=== PATIENT | female | born 1935 ===

== ENCOUNTER 2023-11-18 13:41 | Inpatient (IN) | payer OTHER, SELFPAY ==
--- NOTE | 2023-11-18 10:20 | ED.MUSCINJ ---
HPI-Injury
General
Chief Complaint: Musculo-Skeletal Complaint
Source: patient
Exam Limitations: none
Time Seen by Provider: 11/18/23 09:48
Nursing documentation reviewed up to this point in time: agreed with
Travel History
Have you had any contact with someone who has COVID-19?: No
Do you have any symptoms of coronavirus? Fever > 100 degrees, chills, cough, shortness of breath, sore throat, loss of taste or smell, muscle aches, or headache?: No
History of Present Illness-Injury
Is this injury a work related problem?: No
Is pt an associate of [facility]?: No
Initial Injury comments:
88-year-old female was at the [facility] slipped on a wet floor injuring her right wrist and right hip occurred just prior to arrival she is right-hand dominant, she has had injury to the right wrist before seen by Kiya did not require operative
repair, has mild pain in her right hip she is able to ambulate, has a deformity to her right wrist, no head strike takes aspirin no other blood thinners
Review of Systems
Review of Systems
All Other Systems: Not applicable
Respiratory: Reports no symptoms
Cardiac: Reports no symptoms
ABD/GI: Reports no symptoms
Musculoskeletal: Reports joint pain and joint swelling; Denies neck pain
Neurological: Reports no symptoms
Endocrine: Reports no symptoms
Phy Exam
Physical Exam
Physical Exam:
Physical Exam
General: Nontoxic female looks uncomfortable
Neck: No tongue bite no posterior neck pain
Heart: s1/s2 regular rate and rhythm, no murmur. equal radial pulses.
Lungs: no acute respiratory distress.
Neuro: alert and oriented. no focal neurological deficits
Skin: no rash
Psychiatric: well kept. interactive and cooperative
Extremities: Minimal pain with range of motion internal extra rotation of the right hip, dorsally displaced deformity of the right distal radius strong radial pulse normal cap refill
Injury Course
Orders/Labs/Results
Orders:
Orders
11/18/23 09:58
CR Wrist - Right Min 3 Views Urgent
Comment:
Reason For Exam: pain injury
Hip, Right 2-3 Views [CR Hip - RT w/wo Pel 2-3 Vw*] Urgent
Comment:
Reason For Exam: pain injury
Include a pelvis x-ray?: Yes
11/18/23 10:11
IV Insert/Care/Rem.- Treatment PRN
11/18/23 10:54
Morphine Sulfate 4 mg IV NOW STA
11/18/23 11:26
Type+Screen Urgent
Electrocardiogram (*1) Urgent
Reason for Study: Other
Other Reason for Exam: trauma
Cardiac Monitoring- Treatment ONCE
EKG- Treatment ONCE
Sling Right-Treatment ONCE
Complete Blood Count/With Diff Urgent
Comprehensive Metabolic Panel Urgent
Procedures
Splint Check
Splint checked by provider?: Yes
Circulation/Movement/Sensation post splint application: brisk cap refill
Splinting/Sling Placement
Right:
Procedure completed by: carmencita
Pre-splint extermity exam: neurovascular intact
Type of splint: dorsal/volar
Splint material: fiberglass
Splint checked by provider?: Yes
Joint/Fracture Reduction
Right Wrist:
Indication for procedure:: Wrist fracture
Procedure completed by: Carmencita
Consent form signed: No
Anesthesia/sedation: Injection to joint space
Injury was: closed
Further treatement: needs further treatment
Post reduction exam: stable
Capillary Refill: normal
Additional information:
Verbal consent, timeout sterile technique 4 cc of 1% lidocaine and Marcaine injected into the hematoma gentle pressure placed
MDM/Problems Addressed
Differential Diagnosis Includes:
Wrist fracture contusion hip contusion hip fracture pelvic fracture pelvic contusion
MDM/Problems Addressed:
Wrist and hip injury
*Radiology
Radiology exam reviewed: preliminary read by ED provider
*Pulse Oximetry
Patient hypoxic: no
*Critical Care Note
Total Time (30-74mins, 75-104mins- exclusive of procedures): Not Applicable
ED Attending Note
-
Portions of this chart may have been created with voice recognition software.� Occasional wrong word or��sound alike� substitutions may have occurred due to the inherent limitations of voice recognition software.
Discharge Plan
Departure
Referrals:
UNKNOWN - PT DOES,NOT KNOW [Family Provider] -
Interventions
Interventions:
*Risk Screen - Suicide Last Done: 11/18/23 09:48
*General Assessment Last Done: 11/18/23 09:48
*Neglect/Abuse Screening Last Done: 11/18/23 09:48
ED- Fall Risk Assessment Last Done: 11/18/23 09:48
*ED COVID-19 Vaccine History Last Done: 11/18/23 09:48
ED-Musculoskeletal Assessment Last Done: 11/18/23 09:48
Discharge Date and Time
Print Language: KISWAHILI
[2023-11-18] MEDS: MORPHINE SULFATE 4 MG IV (12:06)
[2023-11-18 12:22] LABS: % Basophils 0.2 % (0-2); % Eosinophils 0.2 % (0-6); % Immature Granulocytes 0.9 % (0-0.5); % Lymphocytes 7.8 % (20.5-51.1); % Monocytes 5.9 % (1.7-9.3); Absolute Immature Granulocytes 0.1 10^3/uL (0-0.05); Absolute Lymphocytes 0.8 10^3/uL (1.2-3.4); Absolute Monocytes 0.6 10^3/uL (0.1-0.6); Absolute Neutrophils 8.2 10^3/uL (1.4-6.5); Hematocrit 38.4 % (37.0-47.0); Hemoglobin 13.3 g/dL (12.0-16.0); Mean Corp Hgb Conc. 34.6 g/dL (33.0-37.0); Mean Corpuscular Hgb 31.8 pg (27.0-31.0); Mean Corpuscular Volume 91.9 fL (81.0-99.0); Mean Platelet Volume 10.4 fL (7.4-10.4); Nucleated Red Blood Cells % 0 %; Platelet Count 144 10^3/uL (130-400); Red Blood Cell Count 4.18 10^6/uL (4.20-5.40); White Blood Cell Count 9.6 10^3/uL (4.8-10.8)
[2023-11-18 12:33] LABS: INR 1.08; PT 13.9 Sec (11.4-14.6)
[2023-11-18 12:36] VITALS: BP 146/71
[2023-11-18 12:50] LABS: ALT (SGPT) 25 U/L (0-35); AST (SGOT) 33 U/L (14-36); Albumin 4.1 g/dl (3.5-5.0); Alkaline Phosphatase 44 U/L (38-126); Blood Urea Nitrogen 19 mg/dl (7-17); Calcium 9.4 mg/dl (8.4-10.2); Carbon Dioxide 28 mmol/L (22-30); Chloride 97 mmol/L (98-107); Glucose 91 mg/dl (70-99); Potassium 3.8 mmol/L (3.5-5.1); Sodium 131 mmol/L (135-145); Total Bilirubin 0.7 mg/dl (0.2-1.3); Total Protein 6.8 g/dl (6.3-8.2); eGFR > 60.00
--- NOTE | 2023-11-18 13:05 | HPS.HSE ---
Family Physician
<DWAYNE Loyola - Last Filed: 11/18/23 13:21>
-
Family Physician: NOT KNOW UNKNOWN - PT DOES
Chief Complaint
<DWAYNE Loyola - Last Filed: 11/18/23 13:21>
-
Fall, right wrist pain, right hip pain
History of Present Illness
88-year-old female who was at the [facility] and slipped on a wet floor in the shower area landing on her right wrist and right hip. She came to ER with right wrist deformity and pain in her right hip. She did have prior injuries to the right wrist that
she stated was seen by Kiya but did not require operative repair. She denies striking her head, LOC, blood thinners, headache, blurred vision, dizziness, chest pain, palpitations, shortness breath, cough, abdominal pain, nausea, vomiting,
diarrhea, urinary symptoms. She is past medical history of CAD/CABG, CHF, HTN, HLD, [place], arthritis, fractures
Medical History
<DWAYNE Loyola - Last Filed: 11/18/23 13:21>
Past Medical History
Past Medical History: Reports Other
Additional Past Medical History:
CAD/CABG
CHF
HTN
HLD
[place]
arthritis
fractures
Past Surgical History: Reports Other
Additional Past Surgical History:
CABG x 1 vessel age 69
Lumpectomy
Appendectomy
Social History
Tobacco: Former Smoker (Quit age 23)
Alcohol: None
Drug: None
Personal: Single
Living: Alone
Employment: Retired
Family History
Family History: Other (Mother of pancreatic cancer Father CAD)
Allergies / Home Medications
Allergies reflects when Allergies were last updated in [facility].
Home Medications with original date entered in [facility] [employer]
<Kian Nieves MD - Last Filed: 11/18/23 13:46>
Allergies / Home Medications
Allergy/Medication List:
Allergies
Allergy/AdvReac Type Severity Reaction Status Date / Time
No Known Allergies Allergy Unverified 08/16/16 12:27
Home Medications
acetaminophen 650 mg tablet,extended release 650 mg PO DAILY 11/18/23
aspirin 81 mg tablet,delayed release 81 mg PO QPM 11/18/23
calcium carbonate (Calcium 600) 1,200 mg PO DAILY 11/18/23
hydrochlorothiazide 25 mg tablet 25 mg PO DAILY 11/18/23
simvastatin 40 mg tablet (Zocor) 40 mg PO QPM 11/18/23
therapeutic multivitamin 1 tab PO DAILY 11/18/23
valsartan 320 mg tablet 320 mg PO QPM 11/18/23
Review of Systems
<DWAYNE Loyola - Last Filed: 11/18/23 13:21>
-
History Source: Patient and Family (Friend at bedside)
A 12 point ROS was completed and negative except as noted: Yes
Constitutional: Denies Fever or Fatigue
EENT: Denies Sore Throat or Runny Nose
Respiratory: Denies Cough or Trouble Breathing
Cardiac: Denies Chest Pain, Diaphoresis, Palpitations or Syncope
Abdomen/GI: Denies Abdominal Pain, Nausea, Vomiting, Diarrhea, Constipated, Bloody Stools or Black Stools
: Denies Dysuria, Frequency, Flank Pain, Incontinence or Difficulty Voiding
Musculoskeletal: Reports Joint Pain (Right wrist, right hip) and Joint Swelling (Right wrist, right hip)
Skin: Denies Itching or Rash
Neurological: Denies Dizzy, Headache or Weakness
Endocrine: Reports No Symptoms
Hematologic/Lymphatic: Reports No Symptoms
Psych: Reports Calm
Physical Exam
<DWAYNE Loyola - Last Filed: 11/18/23 13:21>
Vital Signs
Vital Signs
Temp Pulse Resp BP Pulse Ox
97.7 F 65 16 146/71 98
11/18/23 09:48 11/18/23 12:36 11/18/23 09:48 11/18/23 12:36 11/18/23 12:36
Physical Exam
General: Conversant and Pain; No Fever or Chills
HEENT: NormoCephalic, Anicteric, Moist mucous membranes, Atraumatic, PERRLA, [place] Conjunctivae, No Ptosis and Neck Nontender
Respiratory: Clear; No Wheezes, Rales or Rhonchi
Cardiac: S1/S2 and Regular Rhythm; No Murmur, Gallop or Peripheral Edema
Breast: Deferred by me
GI: Soft, Non Tender, Non Distended, Normal Bowel Sounds and No Hepatosplenomegaly
Rectal: Deferred by Provider
Genito-urinary: Deferred by me
Musculoskeletal: No Clubbing, No Cyanosis and Other (Distal right wrist swelling with pain extending to distal fingers, slight numbness thumb and index finger secondary to pain block given in ER, right hip slight swelling at greater trochanter); No
Edema, Left Upper Extremity, Edema, Right Upper Extremity, Edema, Left Lower Extremity or Edema, Right Lower Extremity
Skin: Warm and Dry; No Rash
Neuro: AO x 3, Nonfocal/grossly intact, Cranial Nerves Intact and No Sensory Deficits; No Slurred Speech, Facial Droop or Tremors
Psych: Calm
Laboratory Results
<DWAYNE Loyola - Last Filed: 11/18/23 13:21>
-
11/18/23 12:14
11/18/23 12:14
Laboratory Results
PT 13.9 Sec (11.4-14.6) 11/18/23 12:14
INR 1.08 11/18/23 12:14
Total Bilirubin 0.7 mg/dl (0.2-1.3) 11/18/23 12:14
AST 33 U/L (14-36) 11/18/23 12:14
ALT 25 U/L (0-35) 11/18/23 12:14
Alkaline Phosphatase 44 U/L (38-126) 11/18/23 12:14
Data Reviewed
<DWAYNE Loyola - Last Filed: 11/18/23 13:21>
-
Diagnostic Radiology: Report Reviewed by me
Lab Data: Labs Reviewed by me
Impression/Plan
<DWAYNE Loyola - Last Filed: 11/18/23 13:21>
-
Impression/plan:
Admit to MedSurg
# Mechanical fall with Distal RIGHT RADIUS FX/ ULNAR styloid FX/ RIGHT FEM NECK FX
#History fracture right wrist April 2023�wore cast
-Consult Tiffanie Ronquillo aware
-type and screen sent from ER
-N.p.o. after midnight
-Ice, rest, elevate
-Pain control, bowel regimen
-Consult PT/OT/case management consult
Right wrist x-ray: Comminuted impacted fracture of the distal right
radius and accompanying fracture of the ulnar styloid
Right hip x-ray: Right femoral neck fracture
EKG: NSR 69 bpm, QTc 441 MS no previous EKGs
#HTN�benign
- Continue valsartan
#HLD
-Continue Zocor
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
Follows at [facility] [facility]
#CHF unclear type
-Hold HCTZ
# Arthritis, fractures
DVT prophylaxis
DNR per patient with friend at bedside
[2023-11-18] MEDS: TORADOL 15 MG IV (13:09)
--- NOTE | 2023-11-18 13:37 | W.PN.UPDATE ---
Update Note
Progress Note Update
I saw and examined the patient.
The PIPE FITTER SUPERVISOR MAINTENANCE's note was reviewed and I agree with the note.
Comment:
88-year-old female past medical history of CAD status post CABG, hypertension, hyperlipidemia who is presenting after mechanical fall. Currently states of severe right wrist pain. Not much right hip pain. Denies any loss of consciousness or
palpitation or chest pain prior to the fall. States she can usually do 45 minutes of water exercise. Denies any prior history of diabetes or renal problems. Denies any headache. States she is right-hand dominant.
General in mild acute distress due to pain
HEENT neck is supple trach is midline
Cardiac S1-S2 regular rate rhythm
Lungs clear to auscultation frontally
Abdomen positive bowel sounds soft nontender
Extremities no edema. Right upper extremity with severe wrist swelling and ice pack noted. Lower extremity varicose veins
Psych awake
Impression
Comminuted impacted fracture of the distal right radius and accompanying fracture of the ulna styloid,
Right femoral neck fracture
Mechanical fall
CAD status post CABG
Primary hypertension
HyperLipidemia
Mild hyponatremia
Plan
Bedrest and pain control till evaluation by surgery
Assistance with feeding
Pain control
N.p.o. past midnight with plans for tentative surgery pending orthopedic evaluation
EKG with normal sinus rhythm with no acute ST or T wave changes. Ventricular rate 69. QTc of 441. Patient states she can do Aerobic water exercises for 45 minutes without any chest pain or palpitation. Denies any prior history of diabetes or
renal disease chest pain or palpitation. Patient with low to intermediate cardiac risk per RCRI/Ceballos score for medically necessary surgery and may proceed as feasible. Risk outweighs benefits.
Prophylaxis SCDs till surgery evaluation
Continue home meds except for HCTZ
I spent a total of 78 minutes with the patient or on the floor. More than 50% of this time involved counseling and coordination of care.
[2023-11-18] MEDS: DILAUDID 0.5 MG IV ×2 (13:44→16:26)
[2023-11-18 16:07] VITALS: BP 153/73; BMI 22.6
[2023-11-18 16:22] VITALS: BMI 22.6
[2023-11-18] MEDS: LIPITOR 20 MG PO (17:04)
[2023-11-18] MEDS: DIOVAN 320 MG PO (17:04)
--- NOTE | 2023-11-18 18:41 | CON.ORTHO ---
Consultation
-
Date/Time Consultation Requested: 1130 AM 11/18/2023
Date/Time Consultation Performed: 615 PM 11/18/2023
Requesting Provider: David
Performing Provider: Romulo
Reason for Consultation: Right distal radius fracture, right femoral neck fracture
Consultation - Orthopedics
History
HPI: 88-year-old active female presented to the [facility] emergency department status post fall with complaints of right hip pain and right wrist pain. She was subsequently diagnosed with a displaced right distal radius fracture as well as an
impacted right femoral neck fracture. She was subsequently admitted to the hospitalist service and orthopedics was consulted for further evaluation and treatment. This evening patient reports that she was at the [facility] when she was trying to take a
shower when she fell. She noted immediate pain and deformity to the right wrist and immediate pain to the right groin. She was unable to ambulate and was subsequently brought to the hospital. She reports that pain is well-controlled at rest in
the right hip. Pain is also well-controlled with Dilaudid for right wrist pain. She was unable to tolerate a splint and is holding the wrist close to her chest with ice. She reports some diffuse altered sensation throughout the hand with some
associated tingling
Allergies / Home Medications
Past medical history: Coronary artery disease, congestive heart failure, hypertension, hyperlipidemia
Past surgical history: CABG, appendectomy
Social history: Former smoker, lives alone independently, no assistive devices
Family history: Not pertinent
Allergy/AdvReac Type Severity Reaction Status Date / Time
No Known Allergies Allergy Unverified 08/16/16 12:27
�Medication �Instructions �Recorded
acetaminophen 650 mg 650 mg PO DAILY pain 11/18/23
tablet,extended release
aspirin 81 mg tablet,delayed 81 mg PO QPM Blood Clot 11/18/23
release Prevention/Tx
calcium carbonate (Calcium 600) 1,200 mg PO DAILY Supplement 11/18/23
hydrochlorothiazide 25 mg tablet 25 mg PO DAILY Fluid 11/18/23
Retention/Swelling
simvastatin 40 mg tablet (Zocor) 40 mg PO QPM High Cholesterol 11/18/23
therapeutic multivitamin 1 tab PO DAILY Supplement 11/18/23
valsartan 320 mg tablet 320 mg PO QPM Blood Pressure 11/18/23
Vital Signs / Lab Results
Temp Pulse Resp BP Pulse Ox
98.3 F 81 18 153/73 96
11/18/23 16:07 11/18/23 16:07 11/18/23 16:07 11/18/23 16:07 11/18/23 16:07
11/18/23 12:14
11/18/23 12:14
10 point review systems reviewed and negative unless otherwise stated
General: Pleasant, no acute distress, at rest
Musculoskeletal right upper extremity
Skin intact, no erythema, mild ecchymotic staining right wrist
Obvious dorsal deformity right wrist with tenderness palpation over distal radius metaphyseal region
Sensation is gross intact to light touch in all distributions distally although patient does report some diffuse tingling this is not in a focal median nerve distribution
Brisk cap refill distally
No tenderness palpation over elbow
Musculoskeletal right lower extremity
Leg lengths are approximately equal
There is very minimal pain with logroll
There is minimal tenderness palpation of the right groin and lateral trochanteric flare
Distal motor and sensation baseline
No other areas of bony tenderness palpation or crepitation of long bones and joints on tertiary examination
Diagnostic studies
X-rays right wrist and right hip independently viewed by myself. This shows displaced apex volar dorsal angulation intra-articular right distal radius fracture with shortening. There is also evidence of valgus impacted right femoral neck fracture.
Assessment / Plan
88-year-old female status post fall with displaced right distal radius fracture and right impacted femoral neck fracture. I had a long detailed discussion the patient regarding diagnosis and treatment options. After discussion we mutually agreed
to proceed with operative intervention for right femoral neck fracture. We discussed risks benefits and alternatives to surgery. We discussed the usual expected perioperative and postoperative course. No guarantees were given. We did discuss the
possibility of conversion to arthroplasty procedure in the future should fixation fail. After discussion, verbal consent was obtained to proceed with closed reduction cannulated screw fixation right femoral neck fracture. Will plan to obtain
written informed consent prior to procedure tomorrow. With regards to right distal radius fracture, my recommendation would be to proceed with conservative treatment. Will plan for close reduction and splinting with sugar-tong splint tomorrow in
the OR under sedation. She voiced her agreement to this plan as well.
Nonweightbearing right upper extremity in splint the patient can tolerate this, nonweightbearing right lower extremity
PT OT deferred to postoperative setting
DVT prophylaxis: Hold in a.m. in preparation for OR
Pain control
Medical management per primary team
Will obtain CT scan to confirm no significant apex anterior posterior displacement of femoral neck fracture and for surgical planning purposes
Plan: 2 OR tomorrow for operative fixation right femoral neck fracture and closed reduction right distal radius fracture pending medical clearance and OR availability
[2023-11-18] MEDS: DILAUDID 1 MG IV (19:44)
[2023-11-18 23:59] VITALS: BP 127/64
[2023-11-19] VITALS (24 sets, daily range): BP systolic 80–146; BP diastolic 46–105; BMI 22.3; BMI 22.8
[2023-11-19] MEDS: DILAUDID 1 MG IV ×3 (01:42→13:41)
[2023-11-19 06:57] LABS: % Basophils 0.4 % (0-2); % Eosinophils 1.4 % (0-6); % Immature Granulocytes 0.5 % (0-0.5); % Lymphocytes 8.9 % (20.5-51.1); % Monocytes 9.5 % (1.7-9.3); % Neutrophils 79.3 % (42.2-75.2); Absolute Eosinophils 0.1 10^3/uL (0-0.7); Absolute Lymphocytes 0.7 10^3/uL (1.2-3.4); Absolute Monocytes 0.8 10^3/uL (0.1-0.6); Absolute Neutrophils 6.3 10^3/uL (1.4-6.5); Hematocrit 34.9 % (37.0-47.0); Hemoglobin 12.1 g/dL (12.0-16.0); Mean Corp Hgb Conc. 34.7 g/dL (33.0-37.0); Mean Corpuscular Hgb 31.4 pg (27.0-31.0); Mean Corpuscular Volume 90.6 fL (81.0-99.0); Mean Platelet Volume 10.3 fL (7.4-10.4); Nucleated Red Blood Cells % 0 %; Platelet Count 141 10^3/uL (130-400); Red Blood Cell Count 3.85 10^6/uL (4.20-5.40); Red Cell Dist. Width 13.2 % (11.5-14.5)
[2023-11-19 07:13] LABS: Blood Urea Nitrogen 18 mg/dl (7-17); Calcium 8.7 mg/dl (8.4-10.2); Carbon Dioxide 30 mmol/L (22-30); Chloride 95 mmol/L (98-107); Estimated Creatinine Clearance 69 ml/min; Glucose 98 mg/dl (70-99); Potassium 3.8 mmol/L (3.5-5.1); Sodium 127 mmol/L (135-145); eGFR > 60.00
[2023-11-19] MEDS: OSCAL CAL 500 1000 MG PO (08:42)
[2023-11-19] MEDS: THERAGRAN 1 TABLET PO (08:42)
[2023-11-19] MEDS: ZOFRAN 4 MG IV (08:49)
--- NOTE | 2023-11-19 11:23 | W.PN.HOSP.TC ---
Today's Communication/Plan
-
OR Hopefully today
hold hctz
trend bmp
Assessment / Plan
Assessment / Plan
General: Conversant and Pain; No Fever or Chills
HEENT: NormoCephalic, Anicteric, Moist mucous membranes, Atraumatic, [place] Conjunctivae, No Ptosis and Neck Nontender
Respiratory: Clear; No Wheezes, Rales or Rhonchi
Cardiac: S1/S2 and Regular Rhythm; No Murmur, Gallop or Peripheral Edema
GI: Soft, Non Tender, Non Distended, Normal Bowel Sounds and No Hepatosplenomegaly
Musculoskeletal: No Clubbing, No Cyanosis and Other (Distal right wrist swelling with pain extending to distal fingers, slight numbness thumb and index finger secondary to pain block given in ER, right hip slight swelling at greater trochanter); No
Edema, Left Upper Extremity, Edema, Right Upper Extremity, Edema, Left Lower Extremity or Edema, Right Lower Extremity
Skin: Warm and Dry; No Rash
Neuro: AO x 3, Nonfocal/grossly intact, Cranial Nerves Intact and No Sensory Deficits; No Slurred Speech, Facial Droop or Tremors
Psych: Calm
# Mechanical fall with Distal RIGHT RADIUS FX/ ULNAR styloid FX/ RIGHT FEM NECK FX
#History fracture right wrist April 2023�wore cast
-type and screen sent from ER
-N.p.o. ordered.
-Ice, rest, elevate
-Pain control, bowel regimen
-Consult PT/OT/case management consult
-await OR.
-seen by Kiya.
#HTN�benign
- Continue valsartan
#Mild hyponatremia likely 2/2 HCTZ and vs. suspected SIADH in setting of severe pain
-Hold HCTZ. Check urine studie.s
#HLD
-Continue Zocor
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
Follows at [place] cardiology
#CHF unclear type
-Hold HCTZ
# Arthritis, fractures
DVT prophylaxis-scds and post op per orthopedic
DNR per patient
Anticipated Discharge: > 48 hours
Subjective/Interval History
-
Date of Service: November 19, 2023
states of R wrist pain
Objective Data
-
Labs:
Laboratory Results
11/19/23
06:14
WBC 8.0
Hgb 12.1
Hct 34.9 L
Plt Count 141
Sodium 127 L
Potassium 3.8
Chloride 95 L
Carbon Dioxide 30
BUN 18 H
Creatinine 0.6
Glucose 98
Calcium 8.7
Vital Signs:
Vital Signs
Temp Pulse Resp BP Pulse Ox
98.6 F 74 18 128/58 94
11/19/23 08:25 11/19/23 08:25 11/19/23 08:25 11/19/23 08:25 11/19/23 10:39
I&O
11/18/23 11/19/23 11/20/23
06:59 06:59 06:59
Output Total 450 / 450
Balance -450 / -450
Data Reviewed
-
Total Time Spent with Patient (in minutes): 55
[2023-11-19] MEDS: DILAUDID 0.5 MG IV ×2 (11:27→21:40)
--- NOTE | 2023-11-19 15:09 | CM ---
Cm met with pt and niece/Mirela bedside
Pt slept through assessment
Pt resides alone in a 2SH with 2STE- stair glide to 2nd floor
Pt is independent with her ADLs without any ADs, drives+
Does not own any DMEs
PCP- unknown to niece
Plan for hopeful OR today with ortho
Anticipate ST rehab needs on dc
PAC list provided and role of [employer] in prior auth approval discussed
Pt will benefit from post-op PT/OT orders once medically appropriate
Discharge Disposition- ST rehab
--- NOTE | 2023-11-19 19:14 | W.PN.UPDATE ---
Update Note
Progress Note Update
Patient was seen evaluated in the preoperative holding area. We were planning for operative fixation of right femoral neck fracture as well as closed reduction right distal radius fracture. She was taken to the OR at which point she was found to
be in A-fib. She does not have a documented history of A-fib. Anesthesia canceled the case and patient was taken to PACU. I did contact the primary team and they are planning on evaluating patient in PACU as she likely is not appropriate to
return to med surg floor in her current condition. Patient is currently in A-fib heart rate in the 160s on 2 L of nasal cannula oxygen satting in 90s. She was found to have a temperature of one 101.3. Will plan to see patient in the morning and
will tentatively plan for return to the OR tomorrow pending medical clearance/stability. Please keep NPO at midnight.
[2023-11-19] MEDS: LOPRESSOR 5 MG IV (19:25)
[2023-11-19] MEDS: OFIRMEV 100 IV (19:31)
[2023-11-19] MEDS: NSS 500 IV (19:50)
[2023-11-19 19:51] LABS: % Immature Granulocytes 0.7 % (0-0.5); % Lymphocytes 5.9 % (20.5-51.1); % Monocytes 9.3 % (1.7-9.3); % Neutrophils 84.1 % (42.2-75.2); Absolute Lymphocytes 0.3 10^3/uL (1.2-3.4); Absolute Monocytes 0.4 10^3/uL (0.1-0.6); Absolute Neutrophils 3.7 10^3/uL (1.4-6.5); Mean Corpuscular Volume 91.3 fL (81.0-99.0); Mean Platelet Volume 10.1 fL (7.4-10.4); Nucleated Red Blood Cells % 0 %; Platelet Count 52 10^3/uL (130-400); Red Cell Dist. Width 13.5 % (11.5-14.5); White Blood Cell Count 4.4 10^3/uL (4.8-10.8)
[2023-11-19 19:55] LABS: Hematocrit 13.7 % (37.0-47.0); Hemoglobin 4.8 g/dL (12.0-16.0)
[2023-11-19 20:11] LABS: % Basophils 0.2 % (0-2); % Eosinophils 0.1 % (0-6); % Immature Granulocytes 0.5 % (0-0.5); % Lymphocytes 5.3 % (20.5-51.1); % Monocytes 8.5 % (1.7-9.3); % Neutrophils 85.4 % (42.2-75.2); Absolute Immature Granulocytes 0.1 10^3/uL (0-0.05); Absolute Lymphocytes 0.6 10^3/uL (1.2-3.4); Absolute Monocytes 0.9 10^3/uL (0.1-0.6); Absolute Neutrophils 9.3 10^3/uL (1.4-6.5); Hematocrit 35.8 % (37.0-47.0); Hemoglobin 12.3 g/dL (12.0-16.0); Mean Corp Hgb Conc. 34.4 g/dL (33.0-37.0); Mean Corpuscular Hgb 32.1 pg (27.0-31.0); Mean Corpuscular Volume 93.5 fL (81.0-99.0); Mean Platelet Volume 10.3 fL (7.4-10.4); Nucleated Red Blood Cells % 0 %; Platelet Count 141 10^3/uL (130-400); Red Blood Cell Count 3.83 10^6/uL (4.20-5.40); Red Cell Dist. Width 13.3 % (11.5-14.5); White Blood Cell Count 10.8 10^3/uL (4.8-10.8)
[2023-11-19 20:12] LABS: Glucose - Point of Care 105 mg/dl (70-99)
[2023-11-19] MEDS: NSS 1000 IV (20:23)
[2023-11-19 20:42] LABS: APTT 34.9 Sec (23.4-35.0)
[2023-11-19 20:45] LABS: ALT (SGPT) 80 U/L (0-35); AST (SGOT) 82 U/L (14-36); Albumin 3.2 g/dl (3.5-5.0); Alkaline Phosphatase 57 U/L (38-126); Blood Urea Nitrogen 22 mg/dl (7-17); Calcium 9.5 mg/dl (8.4-10.2); Carbon Dioxide 27 mmol/L (22-30); Chloride 94 mmol/L (98-107); Estimated Creatinine Clearance 32 ml/min; Glucose 100 mg/dl (70-99); Phosphorus 4.7 mg/dl (2.5-4.5); Potassium 4.6 mmol/L (3.5-5.1); Sodium 127 mmol/L (135-145); Total Bilirubin 0.8 mg/dl (0.2-1.3); Total Protein 5.6 g/dl (6.3-8.2)
--- NOTE | 2023-11-19 21:06 | W.PN.UPDATE ---
Update Note
Progress Note Update
Patient was seen and evaluated in PACU as patient was found to be in Rapid Afib prior to surgery on Right Hip. EKG shows Afib RVR BP 109/76 HR 160's, Temp 101.3, 2l O2 94%, RR 20. Tylenol IV x1 given, metoprolol 5mg IV x1 given. CBC, CMP, mag phos
ordered. BP noted to be in 70's-80's systolic, 500 ml bolus given, Labs noted. Patient resting in bed, no bleeding, bruises noted. Patient denies any chest pain or shortness of breath or palpitation. Denies any hx of stroke or A-fib. Principal Cloud Architect
consulted, and will transfer patient to ICU for closer observation.
--- NOTE | 2023-11-19 21:30 | PTCARENOTE ---
rec'd patient from PACU. oriented x3. afib on monitor, HR 110s-140s, ICU ANNUAL GIVING DIRECTOR aware. afebrile. + pedal pulses. on 2L NC, lungs CTA. NPO, ice chips provided. purewick placed. UA sent. pt repositioned off R hip. c/o pain with movement of R wrist and R
hip. IVF infusing. PRN dilaudid given for pain. IMU level of care. call de santiago within reach. care ongoing.
[2023-11-19] MEDS: DIOVAN PO (21:36)
[2023-11-19] MEDS: LIPITOR PO (21:36)
[2023-11-19 22:04] LABS: Osmolality Urine 615 mOsm/kg (300-900)
[2023-11-19 22:13] LABS: Urine Sodium 49 mmol/L (30-90)
[2023-11-19] MEDS: CARDIZEM 10 MG IV (22:26)
[2023-11-19] MEDS: CARDIZEM 125 IV (22:28)
--- NOTE | 2023-11-19 23:19 | PTCARENOTE ---
2230- HR 130-150s, ICU PERSONAL COACH aware, cardizem bolus and gtt initiated per protocol. care ongoing.
[2023-11-20] VITALS (49 sets, daily range): BP systolic 92–135; BP diastolic 46–91; BMI 22.8
--- NOTE | 2023-11-20 04:16 | PTCARENOTE ---
pt reassessed, no changes noted in assessment. denies pain at this time. AM labs sent. shayan gtt continues, HR 60-80. call de santiago within reach, care ongoing.
[2023-11-20 04:18] LABS: % Basophils 0.4 % (0-2); % Eosinophils 0.6 % (0-6); % Immature Granulocytes 0.4 % (0-0.5); % Lymphocytes 12.6 % (20.5-51.1); % Monocytes 13.2 % (1.7-9.3); % Neutrophils 72.8 % (42.2-75.2); Absolute Eosinophils 0.1 10^3/uL (0-0.7); Absolute Lymphocytes 1.1 10^3/uL (1.2-3.4); Absolute Monocytes 1.2 10^3/uL (0.1-0.6); Absolute Neutrophils 6.5 10^3/uL (1.4-6.5); Hemoglobin 12.4 g/dL (12.0-16.0); Mean Corp Hgb Conc. 33.5 g/dL (33.0-37.0); Mean Corpuscular Hgb 31.7 pg (27.0-31.0); Mean Corpuscular Volume 94.6 fL (81.0-99.0); Mean Platelet Volume 10.5 fL (7.4-10.4); Nucleated Red Blood Cells % 0 %; Platelet Count 137 10^3/uL (130-400); Red Blood Cell Count 3.91 10^6/uL (4.20-5.40); Red Cell Dist. Width 13.5 % (11.5-14.5); White Blood Cell Count 8.9 10^3/uL (4.8-10.8)
[2023-11-20 04:55] LABS: Blood Urea Nitrogen 25 mg/dl (7-17); Calcium 9.5 mg/dl (8.4-10.2); Carbon Dioxide 28 mmol/L (22-30); Chloride 99 mmol/L (98-107); Estimated Creatinine Clearance 38 ml/min; Glucose 86 mg/dl (70-99); Potassium 4.3 mmol/L (3.5-5.1); Sodium 131 mmol/L (135-145); eGFR 48.63
[2023-11-20] MEDS: NSS 1000 IV ×2 (05:16→15:25)
[2023-11-20] MEDS: DILAUDID 0.5 MG IV (05:19)
--- NOTE | 2023-11-20 07:51 | W.PN.ORTHO ---
Today's Communication / Plan
-
88-year-old female status post fall rates valgus impacted femoral neck fracture displaced right distal radius fracture with recent onset A-fib prior to OR yesterday evening causing her case to be canceled
Nonweightbearing right upper extremity. Patient is refusing to wear splint as she reported this was uncomfortable. Certainly advised her to maintain this in a comfortable position avoid use of right hand and wrist
Nonweightbearing right lower extremity
PT OT deferred until postoperative setting
DVT prophylaxis: Hold in preparation for OR
Medical management per primary team
Plan: 2 OR today if medically appropriate per medicine and cardiology. Awaiting cardiology input per documentation. Certainly if patient is cleared today, can plan for or later today. Please keep n.p.o. until cardiology evaluation. Please reach
out any questions or concerns.
Subjective
.
.:
Patient resting comfortably this morning in bed. Denies any shortness of breath. She continues to complain of right wrist and right groin pain. She was transferred to the ICU from PACU for new onset A-fib
Vital Signs and Labs
.
Vital Signs and Labs:
Lab Results
11/20/23 04:05
11/20/23 04:05
Temp Pulse Resp BP Pulse Ox
97.9 F 75 14 105/53 95
11/20/23 03:43 11/20/23 07:00 11/20/23 07:00 11/20/23 07:00 11/20/23 07:00
PT 15.0 Sec (11.4-14.6) H 11/19/23 20:24
INR 1.20 11/19/23 20:24
Physical Exam
-
Musculoskeletal right upper and lower extremities
Skin intact, no erythema
There is obvious deformity to right wrist with diffuse tenderness palpation numbers Refill
Sensation grossly intact without evidence of acute carpal tunnel syndrome
Pain with logroll right leg
Leg lengths approximately equal without significant shortening
Positive EHL, FHL, ankle dorsiflexion, plantarflexion
Wrist cap refill
[2023-11-20] MEDS: THERAGRAN PO (08:00)
[2023-11-20] MEDS: OSCAL CAL 500 PO (08:00)
--- NOTE | 2023-11-20 08:07 | PTCARENOTE ---
Received pt awake and alert.Speech is appropriate.+MONTES.Severe pain with limited movement of right leg and right wrist/hand.Medicated with Dilaudid as requested.A Fib noted.Cardizem gtt and IVF infusing.O2 2l NC.POX 95%Decreased breath sounds
throughout noted.NPO.No Bm.Voiding yellow urine via PureWick.Plan of care discussed.
[2023-11-20] MEDS: DILAUDID 1 MG IV ×3 (08:21→20:53)
--- NOTE | 2023-11-20 08:46 | CON.CAR ---
Addendum entered and electronically signed by Timi Griffin MD 11/20/23 09:15:
I saw and examined the patient.
The ELECTRICIAN MARINE's note was reviewed and I agree with the note.
Comment: 88-year-old female followed at [facility] for CAD status post ankle vessel CABG approximately 30 years ago, hypertension, and hyperlipidemia who presented to the ED after a fall. She has been found to have multiple fractures.
She has been seen by orthopedics and is planned for OR later today. I discussed with her the risk of surgery. She exercises at least 4 times a week with no cardiovascular symptoms. She currently denies any ischemic, heart failure, or arrhythmia
symptoms. I did discuss atrial fibrillation with her as well. She will need long-term anticoagulation. Additionally, according to the NSQIP risk calculator she is at approximately 1% risk of cardiac complication and approximately 6% risk of any
complication. I discussed with her because of her age and medical condition she is likely an intermediate/moderate risk candidate but she needs no further testing or medication prior to surgery.
-Intermediate/moderate risk patient for orthopedic surgery no further testing or medication is needed
-AF RVR continue dill drip will transition to p.o. after surgery
-Eliquis when okay from surgical perspective
-Hold HCTZ given electrolyte abnormality
-We will continue to follow
Original Note:
Consultation
Consultation Request
Date/Time Consultation Requested: 11/19/2023 21:00
Date/Time Consultation Performed: 11/20/2023 08:10
Requesting Provider: DWAYNE Sims
Performing Provider: DWAYNE Espinoza for Dr. Griffin
Reason for Consultation: Atrial fibrillation with RVR, Cardiac risk assessment
Medical History
-
Chief Complaint: Fall
History of Present Illness:
Tabatha Covarrubias is an 88-year-old female (formerly known to Dr. Gorge holden, now following at [facility]), with CAD s/p single-vessel CABG, hypertension, and dyslipidemia who presented to the emergency department after a fall. She was at
the [facility]. She goes to the gym 4 days a week and does water aerobics and feels well while doing this. While going into the shower she sustained a mechanical fall. She denies head injury. She denies syncope. She denies loss of consciousness. She
presented to the emergency room and was found to have a radial fracture of the right wrist in addition to a right femoral neck fracture. The plan was for her to go to the OR yesterday. When she arrived in the OR holding area she was found to be
in atrial fibrillation with rapid ventricular response. She was given intravenous Lopressor and started on a diltiazem drip. She was found to have a temperature of 101.2. She had hypotension and was sent to ICU. She is afebrile and normotensive
this morning. Heart rate in the 80s and atrial fibrillation on diltiazem at 5 mg/hour. Cardiology was asked to consult for preop risk assessment. She is chest pain-free. She is lying completely flat in bed and denies shortness of breath.
Past Medical History
Past Medical History: CAD, HTN and Hypercholesterolemia
Social History
Tobacco: Former Smoker
Alcohol: None
Drug: None
Living: Alone
Employment: Retired
Family History
Family History: Reviewed & Not Pertinent
Allergies / Home Medications
Allergy/AdvReac Type Severity Reaction Status Date / Time
No Known Allergies Allergy Unverified 08/16/16 12:27
�Medication �Instructions �Recorded �Confirmed �Type
acetaminophen 650 mg 650 mg PO DAILY pain 11/18/23 11/18/23 History
tablet,extended release
aspirin 81 mg tablet,delayed 81 mg PO QPM Blood Clot 11/18/23 11/18/23 History
release Prevention/Tx
calcium carbonate (Calcium 600) 1,200 mg PO DAILY Supplement 11/18/23 11/18/23 History
hydrochlorothiazide 25 mg tablet 25 mg PO DAILY Fluid 11/18/23 11/18/23 History
Retention/Swelling
simvastatin 40 mg tablet (Zocor) 40 mg PO QPM High Cholesterol 11/18/23 11/18/23 History
therapeutic multivitamin 1 tab PO DAILY Supplement 11/18/23 11/18/23 History
valsartan 320 mg tablet 320 mg PO QPM Blood Pressure 11/18/23 11/18/23 History
Review of Systems
-
History Source: Patient
All other systems: Negative unless noted
EENT: No Symptoms
Respiratory: No Symptoms
Cardiac: No Symptoms
Musculoskeletal: Joint Pain (right wrist; right hip)
Physical Exam
Vital Signs
Temp Pulse Resp BP Pulse Ox
98.1 F 75 14 105/53 95
11/20/23 07:57 11/20/23 07:00 11/20/23 07:00 11/20/23 07:00 11/20/23 07:00
Lab Results
11/20/23 04:05
11/20/23 04:05
Physical Exam
General: Well Developed, Well Nourished, No Apparent Distress and Comfortable
HEENT: Normocephalic, Anicteric and Moist Mucous Membranes
Respiratory: Clear and Non Labored Respirations
Cardiac: S1/S2 and Irregular Rhythm
Breast: Deferred by me
GI: Soft, Non Tender, Non Distended and Normal Bowel Sounds
Rectal: Deferred by Provider
Genito-urinary: No Costovertebral Tender
Musculoskeletal: No Clubbing and No Cyanosis
Skin: Warm, Dry and Other (Swelling and ecchymosis to right hand)
Neuro: AO x 3
Hematologic/Lymphatic: No Lymphadenopathy
Psych: Calm
Impression / Plan
-
Preop risk assessment
-Able to complete 4 METS without anginal symptoms
-Reports stress testing within the last year that was 'normal'
Atrial fibrillation with rapid ventricular response
-Rate controlled on diltiazem 5mg/hour
-Oral Anticoagulation: None COMMODITY MERCHANT, start apixaban 5 mg twice daily, timing of start per orthopedic surgery
-[id number]: score at least 5 (HTN, age 75 or more, Vascular disease, female gender)
Mechanical fall with right femoral neck fracture and right radial fracture
-OR today
Fever, resolved, per primary
CAD
-prior single-vessel CABG, cath with 70% ostial LAD, presumed to CASTELLANOS�LAD
-Stable without chest pain
-On simvastatin, goal LDL <70
Hypertension, anticipate decreasing valsartan to allow for rate controlling agent, adjustment to be made postoperatively
Hyponatremia, hold HCTZ
Data Reviewed
-
EKG: Report Reviewed by me (Atrial fibrillation with rapid ventricular response. Lateral ST abnormality, rate 159)
Radiology: Report Reviewed by me (Wrist XR: There is a comminuted impacted fracture of the distal right radius extending to the radiocarpal joint with dorsal angulation of the major distal fracture fragment. An accompanying lateral and dorsally
displaced fracture of the ulna styloid is also noted.) and Other (Hip XR (right): Right femoral neck fracture, possibly mildly impacted.)
Labs: Labs Reviewed by me
Old Records: Reviewed
--- NOTE | 2023-11-20 10:32 | W.PN.HOSP.TC ---
Today's Communication/Plan
-
Continue with Cardizem
Plan for tentative OR today
IV fluids
Trend creatinine
Hold valsartan
Assessment / Plan
Assessment / Plan
General: Conversant and Pain; No Fever or Chills
HEENT: NormoCephalic, Anicteric, Moist mucous membranes, Atraumatic, [place] Conjunctivae, No Ptosis and Neck Nontender
Respiratory: Clear; No Wheezes, Rales or Rhonchi
Cardiac: S1/S2, irregularly irregular
GI: Soft, Non Tender, Non Distended, Normal Bowel Sounds and No Hepatosplenomegaly
Musculoskeletal: No Clubbing, No Cyanosis and Other (Distal right wrist swelling with pain extending to distal fingers, slight numbness thumb and index finger secondary to pain block given in ER, right hip slight swelling at greater trochanter); No
Edema, Left Upper Extremity, Edema, Right Upper Extremity, Edema, Left Lower Extremity or Edema, Right Lower Extremity
Skin: Warm and Dry; No Rash
Neuro: AO x 3, Nonfocal/grossly intact, Cranial Nerves Intact and No Sensory Deficits; No Slurred Speech, Facial Droop or Tremors
Psych: Calm
# Mechanical fall with Distal RIGHT RADIUS FX/ ULNAR styloid FX/ RIGHT FEM NECK FX
#History fracture right wrist April 2023
-type and screen sent from ER
-N.p.o. ordered.
-Ice, rest, elevate
-Pain control, bowel regimen
-Consult PT/OT/case management consult
-await OR. Appreciate cards assistance for preop risk assessment
-seen by Kiya.
# New onset of atrial fibrillation with rapid ventricular response
-Started on Cardizem drip
-Need to be started on anticoagulation. Once cleared by surgery
-Cardiology evaluation
#Fever
-resolved. if repeat episode check blood culture, ua and cxr
-monitor fever curve. wbc wnl.
#YOAV likely secondary to prerenal versus ATN with episodes of hypotension in setting of A-fib versus use of diuretics HCTZ
-Continue with IV fluids. Creatinine slowly starting to improve. Renally dose medication.
#HTN�benign
-Hold valsartan in setting of YOAV and blood pressure being well-controlled on Cardizem
-Can probably discontinue HCTZ on discharge
#Mild hyponatremia likely 2/2 HCTZ and vs. suspected SIADH in setting of severe pain
-Hold HCTZ. Sodium improving
#HLD
-Continue Zocor
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
Follows at [facility]
# Arthritis, fractures
DVT prophylaxis-scds and post op per orthopedic
DNR per patient
Anticipated Discharge: > 48 hours
Subjective/Interval History
-
Date of Service: November 20, 2023
Patient with new onset of atrial fibrillation and all lab was canceled yesterday
This morning patient on Cardizem drip and heart rate well-controlled
Objective Data
-
Labs:
Laboratory Results
11/20/23
04:05
WBC 8.9
Hgb 12.4
Hct 37.0
Plt Count 137
Sodium 131 L
Potassium 4.3
Chloride 99
Carbon Dioxide 28
BUN 25 H
Creatinine 1.1 H
Glucose 86
Calcium 9.5
Vital Signs:
Vital Signs
Temp Pulse Resp BP Pulse Ox
98.1 F 75 14 105/53 95
11/20/23 07:57 11/20/23 07:00 11/20/23 07:00 11/20/23 07:00 11/20/23 07:00
I&O
11/19/23 11/20/23 11/21/23
06:59 06:59 06:59
Intake Total 315 / 315
Output Total 1250 / 1250
Balance -935 / -935
Data Reviewed
-
Total Time Spent with Patient (in minutes): 56
--- NOTE | 2023-11-20 13:10 | PTCARENOTE ---
Pt assessed.No change in assessment noted.
--- NOTE | 2023-11-20 16:34 | PTCARENOTE ---
1600-Pt assessed.no change in assessment noted.Report given to WARDROBE CONSULTANT.Pt transported to OR via bed.
--- NOTE | 2023-11-20 16:43 | OR.RPT ---
Operative Report
Operative Report
Anesthesia Type:
General
Operative Indications:
Right valgus impacted femoral neck fracture, displaced right distal radius fracture
Operative Findings :
Same
Complications:
None
Implants:
6.5 mm Korin cannulated screws x 3
Procedure and Technique:
Close reduction cannulated screw fixation right valgus impacted femoral neck fracture, closed reduction and splinting right distal radius fracture
INDICATIONS FOR PROCEDURE:
88-year-old active healthy independent female presented to the emergency department after sustaining a fall while at the [facility]. She was subsequently diagnosed with a valgus impacted right femoral neck fracture as well as displaced left distal radius
fracture. She was admitted to the medical service and orthopedics was consulted. I discussed treatment options with the patient. We discussed surgical nonsurgical options. We discussed both arthroplasty and fixation options for right hip. After
discussion we mutually elected to proceed with cannulated screw fixation right valgus impacted femoral neck fracture as well as closed reduction and splinting of the right distal radius fracture. We discussed risks benefits and alternatives of
surgery. Discussed usual expected perioperative postoperative course. After discussion written informed consent was obtained. Patient had initially been taken to the OR on 11/18 but case was canceled that she developed new onset A-fib. She seen
by cardiology and subsequently cleared for the following day.
OPERATIVE PROCEDURE:
Patient is seen identified in preoperative holding area. Operative extremity was marked. All questions were answered. She was taken to the operating room where anesthesia was administered by the anesthesia providers. She was placed supine on
fracture table. Operative extremity was placed in well-padded fracture boot and contralateral extremity was well-padded and secured to contralateral fracture post. Operative extremity was then prepped and draped in normal sterile fashion. Timeout
was performed. Antibiotics were addressed. Small 5 cm incision was made over the lateral hip. Sharp dissection was carried through skin subcutaneous tissues deep fascial layer. Guidewires were then introduced under fluoroscopic guidance in an
inverted triangle position. Appropriate position was confirmed on fluoroscopy and appropriately sized cannulated screws 6.5 mm were then inserted. Final orthogonal fluoroscopic images confirmed appropriate position of screws. Satisfied with the
extent of surgery wounds were closed in layered fashion after copious irrigation normal saline solution. Skin was closed with jose subcutaneous layer was closed with 2-0 Vicryl suture. The drapes were removed and attention was then turned to
right distal radius fracture. Orthogonal fluoroscopic images were taken that revealed a dorsally displaced comminuted distal radius fracture with significant intra-articular component. Close reduction maneuvers were performed under anesthesia and
the reduction was quite tenuous and unable to be held adequately reduced through close reduction means. The decision was made to temporize with a volar slab splint. I will plan to discuss with the patient potentially open reduction internal
fixation given her active baseline lifestyle and independence particularly in the polytrauma setting. Anesthesia was reversed and she was taken to PACU in stable condition. Postoperative plan to include weightbearing to the patient's tolerance
right lower extremity. Nonweightbearing right upper extremity in splint. Patient may bear weight through a platform walker. Plan to see patient back in 2 weeks postop for repeat evaluation repeat radiographs planed removal of jose. Will
recommend DVT prophylaxis renally dosed Lovenox x 28 days.
Disposition:
PACU stable condition
[2023-11-20] MEDS: SUBLIMAZE 25 MCG IV ×2 (18:37→19:12)
[2023-11-20] MEDS: CARDIZEM 125 IV (19:08)
--- NOTE | 2023-11-20 19:50 | PTCARENOTE ---
Patient arrived from PACU accompanied by two EXECUTIVE COMMUNITY PLANNING's. Nursing assessment as documented. Patient s/p closed reduction cannulated screw fixation right hip and closed reduction and splinting right wrist. Aquacell to right thigh CDI, right wrist with
hard splint and SHEILA wrapped. Neurovasc checks as documented, see worklist. Patient on cardizem gtt, NSR on monitor rates in 70's, TRUST OFFICER notified - gtt on hold at [phone]. VSS, call de santiago within reach, care ongoing.
[2023-11-20] MEDS: NSS IV (20:50)
[2023-11-20] MEDS: COLACE 100 MG PO (20:51)
[2023-11-20] MEDS: LIPITOR 20 MG PO (20:51)
[2023-11-20] MEDS: ANCEF 5 IV (23:41)
[2023-11-21] VITALS (26 sets, daily range): BP systolic 105–160; BP diastolic 55–83; PULSE 80–83; O2SAT 98–99; BMI 20.9
[2023-11-21] MEDS: NSS 1000 IV (03:54)
[2023-11-21 05:11] LABS: % Basophils 0.1 % (0-2); % Immature Granulocytes 0.8 % (0-0.5); % Lymphocytes 4.8 % (20.5-51.1); % Monocytes 4.5 % (1.7-9.3); % Neutrophils 89.8 % (42.2-75.2); Absolute Immature Granulocytes 0.1 10^3/uL (0-0.05); Absolute Lymphocytes 0.4 10^3/uL (1.2-3.4); Absolute Monocytes 0.4 10^3/uL (0.1-0.6); Absolute Neutrophils 8.3 10^3/uL (1.4-6.5); Hemoglobin 14.1 g/dL (12.0-16.0); Mean Corp Hgb Conc. 34.4 g/dL (33.0-37.0); Mean Corpuscular Hgb 32.3 pg (27.0-31.0); Mean Platelet Volume 10.2 fL (7.4-10.4); Nucleated Red Blood Cells % 0 %; Platelet Count 135 10^3/uL (130-400); Red Blood Cell Count 4.36 10^6/uL (4.20-5.40); Red Cell Dist. Width 12.9 % (11.5-14.5); White Blood Cell Count 9.2 10^3/uL (4.8-10.8)
[2023-11-21 05:41] LABS: Blood Urea Nitrogen 27 mg/dl (7-17); Calcium 9.4 mg/dl (8.4-10.2); Carbon Dioxide 26 mmol/L (22-30); Chloride 103 mmol/L (98-107); Estimated Creatinine Clearance 59 ml/min; Glucose 126 mg/dl (70-99); Potassium 4.6 mmol/L (3.5-5.1); Sodium 136 mmol/L (135-145); eGFR > 60.00
--- NOTE | 2023-11-21 07:14 | W.PN.ORTHO ---
Today's Communication / Plan
-
88-year-old active female postop day 1 status post cannulated screw fixation right femoral neck fracture and splinting right distal radius fracture
Nonweightbearing right upper extremity in splints. Okay to bear weight through forearm for platform walker mobilization
Weightbearing as tolerated right lower extremity
DVT prophylaxis: Recommend Lovenox renally dosed 28 days postop, please hold in a.m. in preparation for or
Medical management per primary team
Pain control
PT OT
N.p.o. midnight
Plan: 2 OR tomorrow for operative fixation right distal radius fracture
Subjective
.
.:
Patient resting comfortably in bed this morning. No acute overnight events.
Vital Signs and Labs
.
Vital Signs and Labs:
Lab Results
11/21/23 05:03
11/21/23 05:03
Temp Pulse Resp BP Pulse Ox
98.4 F 84 10 134/66 100
11/21/23 03:33 11/21/23 06:00 11/21/23 06:00 11/21/23 06:00 11/21/23 05:45
PT 15.0 Sec (11.4-14.6) H 11/19/23 20:24
INR 1.20 11/19/23 20:24
Physical Exam
-
Musculoskeletal right upper extremity splint in place
Brisk cap refill distally
Motor sensation grossly intact in exposed angers
Musculoskeletal right lower extremity
Dressing in place without significant drainage moderate swelling right thigh positive EHL, FHL, ankle dorsiflexion plantarflexion brisk cap refill distally
--- NOTE | 2023-11-21 08:00 | PTCARENOTE ---
Received pt sitting up in bed. She is awake and alert with right arm in a sling. Her knuckles and fingers are edematous and ecchymotic. Denies numbness or tingling of her right U/E and right L/E. Heels elevated on pillow. She is aware that she is at
risk of breakdown on her right heel due to her femur repair. She stated it only hurts when she moves it however her right wrist is more painful. SR wit PAC noted on monitor. She was informed of the plan to get OOB, manage her pain, stop IVF, use
incentive spirometry, and start her on oral for of Calcium channel piotr for rate and rhythm control. She verbalized her understanding. Left FA#18g with 0.9nss @100ml/hr. Left AC#20g protective catheter flushed sluggishly and patent. Hypoactive
BSX4. Reports her last BM was Saturday and she typically has BM daily. Pt on Colace, will obtain order for Miralax with pt permission. She was advised to increase her fruit and roughage intake and increase mobility. She verbalized her understanding.
Pur wick intact. Right hip Aquacel dressing with small area of SS drainage. Per Dr. Sebastian she may get OOB and weight bear as tolerated. Will continue to monitor.
--- NOTE | 2023-11-21 08:00 | W.PN.CD ---
Today's Communication / Plan
-
- D/c IV Dilt gtt and switch to Dilt CD 180 mg QD
Impression / Plan
-
Mechanical fall with right femoral neck fracture and right radial fracture
-with Distal RIGHT RADIUS FX/ ULNAR styloid FX/ RIGHT FEM NECK FX
-s/p cannulated screw fixation right femoral neck fracture and splinting right distal radius fracture 11/20/23
- Plan for ORIF - fixation right distal radius fracture
Atrial fibrillation with rapid ventricular response
- Now in sinus rhythm
-OK to switch to diltiazem 180mg QD
-Oral Anticoagulation: None MANAGER LEGAL, start apixaban 5 mg twice daily, timing of start per orthopedic surgery
-[id number]: score at least 5 (HTN, age 75 or more, Vascular disease, female gender)
Fever, resolved, per primary
CAD
-prior single-vessel CABG, cath with 70% ostial LAD, presumed to CASTELLANOS�LAD
-Stable without chest pain
-On simvastatin, goal LDL <70
Hypertension, anticipate decreasing valsartan to allow for rate controlling agent, adjustment to be made postoperatively
Hyponatremia, hold HCTZ
Physical Exam
Vital Signs/Labs
Vital Signs
Temp Pulse Resp BP Pulse Ox
98.9 F 84 10 134/66 100
11/21/23 07:53 11/21/23 06:00 11/21/23 06:00 11/21/23 06:00 11/21/23 05:45
11/20/23 11/21/23 11/22/23
06:59 06:59 06:59
Actual Weight 69.9 kg 64.3 kg
11/21/23 05:03
11/21/23 05:03
PT 15.0 Sec (11.4-14.6) H 11/19/23 20:24
INR 1.20 11/19/23 20:24
APTT 34.9 Sec (23.4-35.0) 11/19/23 20:24
Magnesium 2.0 mg/dl (1.6-2.3) 11/19/23 20:24
Physical Exam
Constitutional: No acute distress and Comfortable
EENT: Anicteric and Moist mucous membranes
Cardiovascular: Rhythm & rate is regular, Pedal edema is absent and JVD pressure is normal
Respiratory: Respiratory effort normal, Lungs clear to auscul. and Wheeze Absent
GI: Soft, Non tender and Normal bowel sounds
Neuro/Psych: Alert, Oriented and AO x 3
Data Reviewed
-
Date of Service: November 21, 2023
Medical Decision Making: Reviewed Test Results, Independent Historian Assessment and Test Interpretation
EKG: Tracing Personally Visualized and interpreted
Echo: Report Reviewed by me
Labs: Labs Reviewed by me
Old Records: Reviewed
[2023-11-21] MEDS: THERAGRAN 1 TABLET PO (08:28)
[2023-11-21] MEDS: COLACE 100 MG PO (08:29)
[2023-11-21] MEDS: LOVENOX 40 MG SC (08:31)
[2023-11-21] MEDS: OSCAL CAL 500 1000 MG PO (08:37)
[2023-11-21] MEDS: ANCEF 5 IV (08:37)
[2023-11-21] MEDS: CARDIZEM CD 180 MG PO (08:38)
[2023-11-21] MEDS: DILAUDID 0.5 MG IV ×2 (08:39→13:30)
--- NOTE | 2023-11-21 10:52 | PTCARENOTE ---
2 moderate assist OOB to the chair. She minimally put weight on her right L/E. As she was transitioning to the commode she was incontinent for yellow urine. She states she wears briefs at home due to her urinary incontinence. She lives alone and it
was suggested that she follow the recommendations of the therapists when they evaluate her. Ice packs applied to her right thigh, and right hand elevated on a pillow. Trace L/E edema noted when SCD's removed. Safe environment maintained.
--- NOTE | 2023-11-21 11:05 | W.PN.HOSP.TC ---
Today's Communication/Plan
-
Tx to tele
po cardizem
monitor BP
Lovenox-hold in am
NPO PMN for R radial fx
Assessment / Plan
Assessment / Plan
General: Conversant and Pain; No Fever or Chills
HEENT: NormoCephalic, Anicteric, Moist mucous membranes, Atraumatic, [place] Conjunctivae, No Ptosis and Neck Nontender
Respiratory: Clear; No Wheezes, Rales or Rhonchi
Cardiac: S1/S2, irregularly irregular
GI: Soft, Non Tender, Non Distended, Normal Bowel Sounds and No Hepatosplenomegaly
Musculoskeletal: No Clubbing, No Cyanosis and Other (Distal right wrist swelling with pain extending to distal fingers in sling/swelling. right hip slight swelling at greater trochanter-aquacell dressing noted. )
Skin: Warm and Dry; No Rash
Neuro: AO x 3, Nonfocal/grossly intact, Cranial Nerves Intact and No Sensory Deficits; No Slurred Speech, Facial Droop or Tremors
Psych: Calm
# Mechanical fall with Distal RIGHT RADIUS FX/ ULNAR styloid FX/ RIGHT FEM NECK FX
#History fracture right wrist April 2023
-type and screen sent from ER
-N.p.o. pmn for R radial fracture.
-Ice, rest, elevate
-Pain control, bowel regimen
-Consult PT/OT/case management consult
-s/p cannulated screw fixation of right femoral neck fracture on 11/[address] Sebastian
-seen by Kiya. Lovenox DVT prophylaxis today on hold in the morning
# New onset of atrial fibrillation with rapid ventricular response
-Started on Cardizem drip and now on p.o. Cardizem 180mg daily
-Need to be started on anticoagulation Eliquis. Once cleared by surgery
-Cardiology evaluation
#Fever
-resolved. if repeat episode check blood culture, ua and cxr
-monitor fever curve. wbc wnl. afebrile for 24h.
#YOAV likely secondary to prerenal versus ATN with episodes of hypotension in setting of A-fib versus use of diuretics HCTZ
-Cr stabilized and downtrended.
#HTN�benign
-Hold valsartan in setting of YOAV. May need reduce dose pending bp stabilization
-Can probably discontinue HCTZ on discharge
#Mild hyponatremia likely 2/2 HCTZ and vs. suspected SIADH in setting of severe pain
-Hold HCTZ. resolved.
#HLD
-Continue Zocor
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
Follows at [place] [facility]
# Arthritis, fractures
DVT prophylaxis-scds and post op per orthopedic
DNR per patient
Anticipated Discharge: > 48 hours
Subjective/Interval History
-
Date of Service: November 21, 2023
states of R wrist pain
eating breakfast
Objective Data
-
Labs:
Laboratory Results
11/21/23
05:03
WBC 9.2
Hgb 14.1
Hct 41.0
Plt Count 135
Sodium 136
Potassium 4.6
Chloride 103
Carbon Dioxide 26
BUN 27 H
Creatinine 0.7
Glucose 126 H
Calcium 9.4
Vital Signs:
Vital Signs
Temp Pulse Resp BP Pulse Ox
98.9 F 95 10 160/69 98
11/21/23 07:53 11/21/23 10:45 11/21/23 10:45 11/21/23 08:38 11/21/23 10:45
I&O
11/20/23 11/21/23 11/22/23
06:59 06:59 06:59
Intake Total 315 / 420 1720 / 1720 300 / 300
Output Total 1250 / 1250 400 / 400
Balance -935 / -830 1320 / 1320 300 / 300
Data Reviewed
-
Total Time Spent with Patient (in minutes): 55
--- NOTE | 2023-11-21 11:54 | TRANSFER ---
Report called to [facility] for room 2118. Pt will be transferred via bed with tele & oxygen.
--- NOTE | 2023-11-21 12:00 | CM ---
CM following re: discharge planning.
Reviewed pt's chart, met with pt and pt's daughter in law at bedside.
Pt is aware she is for another surgery tomorrow and she will need a short term rehab. A list of SNFs provided to the pt and daughter in law. 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
number one choice. [facility] SNF and [facility] alternative.
A referral to above SNFs made. CM will fax PT/OT evaluations when available.
PT and OT evaluations pending.
D/c plan: preferred SNF when medically stable.
CM will follow to assist pt with discharge to a preferred SNF.
[2023-11-21] MEDS: DULCOLAX 10 MG PO (13:41)
[2023-11-21] MEDS: MIRALAX 17 GRAMS PO (13:42)
--- NOTE | 2023-11-21 13:44 | PTCARENOTE ---
Pt transferred via bed. Medicated with Hydromorphone prior to transfer. Miralax and Dulcolax administered as well. With walker she was able to transfer with 2 assist. Knee-hi SCD sleeves placed on her L/E's, Heels elevated of bed, Ice applied to
right leg incision and right arm remains in sling. Safe environment maintained.
[2023-11-21] MEDS: LIPITOR 20 MG PO (16:48)
[2023-11-21] MEDS: COLACE PO (19:40)
[2023-11-22] VITALS (12 sets, daily range): BP systolic 128–149; BP diastolic 60–73; BMI 23.6
[2023-11-22 06:49] LABS: % Basophils 0.2 % (0-2); % Immature Granulocytes 0.6 % (0-0.5); % Lymphocytes 10.7 % (20.5-51.1); % Monocytes 9.1 % (1.7-9.3); % Neutrophils 78.4 % (42.2-75.2); Absolute Eosinophils 0.1 10^3/uL (0-0.7); Absolute Immature Granulocytes 0.1 10^3/uL (0-0.05); Absolute Monocytes 0.8 10^3/uL (0.1-0.6); Absolute Neutrophils 7.1 10^3/uL (1.4-6.5); Hematocrit 34.3 % (37.0-47.0); Mean Corpuscular Hgb 32.1 pg (27.0-31.0); Mean Corpuscular Volume 91.7 fL (81.0-99.0); Mean Platelet Volume 10.6 fL (7.4-10.4); Nucleated Red Blood Cells % 0 %; Platelet Count 151 10^3/uL (130-400); Red Blood Cell Count 3.74 10^6/uL (4.20-5.40)
[2023-11-22 07:14] LABS: Blood Urea Nitrogen 23 mg/dl (7-17); Calcium 8.8 mg/dl (8.4-10.2); Carbon Dioxide 31 mmol/L (22-30); Chloride 102 mmol/L (98-107); Estimated Creatinine Clearance 67 ml/min; Glucose 101 mg/dl (70-99); Potassium 4.4 mmol/L (3.5-5.1); Sodium 134 mmol/L (135-145); eGFR > 60.00
[2023-11-22] MEDS: MIRALAX PO (07:46)
[2023-11-22] MEDS: THERAGRAN 1 TABLET PO (07:48)
[2023-11-22] MEDS: CARDIZEM CD 180 MG PO (07:48)
[2023-11-22] MEDS: COLACE 100 MG PO ×2 (07:48→20:10)
[2023-11-22] MEDS: OSCAL CAL 500 1000 MG PO (07:48)
[2023-11-22] MEDS: TYLENOL 1000 MG PO ×3 (08:18→22:06)
--- NOTE | 2023-11-22 10:32 | PTCARENOTE ---
Patient to OR for procedure
--- NOTE | 2023-11-22 12:37 | W.PN.HOSP.TC ---
Today's Communication/Plan
-
OR today for right radial fracture
Postop anticoagulation once cleared by surgery
Monitor heart rate
PT and OT.
Most likely will require placement
Assessment / Plan
Assessment / Plan
General: Conversant and Pain; No Fever or Chills
HEENT: NormoCephalic, Anicteric, Moist mucous membranes, Atraumatic, [place] Conjunctivae, No Ptosis and Neck Nontender
Respiratory: Clear; No Wheezes, Rales or Rhonchi
Cardiac: S1/S2, irregularly irregular
GI: Soft, Non Tender, Non Distended, Normal Bowel Sounds and No Hepatosplenomegaly
Musculoskeletal: No Clubbing, No Cyanosis and Other (Distal right wrist swelling with pain extending to distal fingers in sling/swelling. right hip slight swelling at greater trochanter-aquacell dressing noted. )
Skin: Warm and Dry; No Rash
Neuro: AO x 3, Nonfocal/grossly intact, Cranial Nerves Intact and No Sensory Deficits; No Slurred Speech, Facial Droop or Tremors
Psych: Calm
# Mechanical fall with Distal RIGHT RADIUS FX/ ULNAR styloid FX/ RIGHT FEM NECK FX
#History fracture right wrist April 2023
-type and screen sent from ER
-N.p.o. today for operative fixation of right distal radius fracture
-Ice, rest, elevate
-Pain control, bowel regimen
-Consult PT/OT/case management consult
-s/p cannulated screw fixation of right femoral neck fracture on 11/[address] Sebastian
-seen by Kiya. Lovenox DVT prophylaxis on hold
# New onset of atrial fibrillation with rapid ventricular response
-Started on Cardizem drip and now on p.o. Cardizem 180mg daily. Normal sinus rhythm.
-Need to be started on anticoagulation Eliquis. Once cleared by surgery
-Cardiology evaluation
#Fever
-resolved. if repeat episode check blood culture, ua and cxr
-monitor fever curve. wbc wnl. afebrile for >48h.
#YOAV likely secondary to prerenal versus ATN with episodes of hypotension in setting of A-fib versus use of diuretics HCTZ
-Cr stabilized and downtrended.
#HTN�benign
-Hold valsartan in setting of YOAV. May need reduce dose pending bp stabilization
-Can probably discontinue HCTZ on discharge
#Mild hyponatremia likely 2/2 HCTZ and vs. suspected SIADH in setting of severe pain
-Hold HCTZ. resolved.
#HLD
-Continue Zocor
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
Follows at [place] cardiology
# Arthritis, fractures
DVT prophylaxis-scds and post op per orthopedic/Lovenox.
DNR per patient
Anticipated Discharge: > 48 hours
Subjective/Interval History
-
Date of Service: November 22, 2023
Some mild right wrist pain.
Awaiting to go to surgery
Patient heart rate is well-controlled in normal sinus rhythm
Objective Data
-
Labs:
Laboratory Results
11/22/23
06:01
WBC 9.0
Hgb 12.0
Hct 34.3 L
Plt Count 151
Sodium 134 L
Potassium 4.4
Chloride 102
Carbon Dioxide 31 H
BUN 23 H
Creatinine 0.5 L
Glucose 101 H
Calcium 8.8
Vital Signs:
Vital Signs
Temp Pulse Resp BP Pulse Ox
98 F 68 14 129/73 97
11/22/23 07:54 11/22/23 07:54 11/22/23 07:54 11/22/23 07:54 11/22/23 08:00
I&O
11/21/23 11/22/23 11/23/23
06:59 06:59 06:59
Intake Total 1720 / 1720 1740 / 1740
Output Total 400 / 400
Balance 1320 / 1320 1739 / 1739
Data Reviewed
-
Total Time Spent with Patient (in minutes): 56
--- NOTE | 2023-11-22 12:53 | OR.RPT ---
Operative Report
Operative Report
Anesthesia Type:
General
Operative Indications:
Displaced right distal radius fracture
Operative Findings :
Same, intra-articular 3 or more fragments
Complications:
None
Implants:
Korin distal radius plate, standard width short length
Procedure and Technique:
Open reduction internal fixation right distal radius fracture
INDICATIONS FOR PROCEDURE:
88-year-old female quite active healthy fell while at the [facility] presented to the [place] emergency department with complaints of right hip pain and right wrist pain. She was subsequently diagnosed with valgus impacted right femoral neck fracture
as well as a displaced right distal radius fracture. She was admitted to the hospital service orthopedics is consulted. She was taken to the OR for cannulated screw fixation right femoral neck fracture. Right distal radius fracture was attempted
to be closed while under anesthesia and was unsuccessful. Given the patient's active lifestyle, independence and fracture pattern, recommendation was made to proceed with open reduction internal fixation. Risks benefits and alternatives were
discussed at length with the patient. We discussed the usual expected perioperative postoperative course. After discussion written informed consent was obtained.
OPERATIVE PROCEDURE:
Patient was seen identified in the preoperative holding area. She was taken to the operating room where general anesthesia was administered. Operative extremity was then prepped and draped in normal sterile fashion. Timeout was performed again
identifying the correct operative extremity. Preoperative antibiotics were addressed. Nonsterile tourniquet was inflated modified volar approach of Lg was utilized. Sharp dissection was carried through skin and subcutaneous tissues. Attention
was made to protect all neurovascular structures. Fracture was identified and reduction maneuver was performed. There was noted to be an intra-articular component to the fracture. A [id number] clamp was utilized to reduce the fracture in a
radial to ulnar direction and compress the intra-articular components. Appropriate reduction was confirmed under radiographic guidance. Volar locking plate of appropriate length was then chosen and placed. Initial fixation was achieved bicortical
fixation through the diaphysis. Distal locking screws were placed and confirmed to be extra-articular. 2 additional bicortical nonlocking screws were placed in the shaft. Orthogonal fluoroscopic imaging was obtained that confirmed appropriate
reduction and position of the plate. Satisfied with extent of surgery, wound was copiously irrigated with normal saline solution and tourniquet was deflated and hemostasis was achieved with bipolar electrocautery. Wound was closed in layered
fashion utilizing 2-0 Monocryl for subcutaneous layer and 3-0 nylon for skin. Sterile dressing was applied consisting of Xeroform, 4 x 4 gauze and Webril. Patient was placed in a volar slab splint placed by myself. Anesthesia reversed patient was
taken to PACU in stable condition. Postoperative plans include nonweightbearing to the operative extremity in splint. Okay to bear weight through forearm with platform walker. Plan to see patient back in 2 weeks postop for plan removal of sutures.
Disposition:
PACU stable condition
[2023-11-22] MEDS: SUBLIMAZE 50 MCG IV ×2 (13:22→13:31)
[2023-11-22] MEDS: NSS 1000 IV (13:45)
[2023-11-22] MEDS: SUBLIMAZE 25 MCG IV (14:01)
--- NOTE | 2023-11-22 14:01 | CM ---
Received call from the patient's son requesting his sister be listed as secondary contact. Mery Neves ([phone]) - added by admissions. Pt was went to OR today for wrist fx repair. Discussed SNF/rehabs. [facility] - does not accept [employer];
[facility] - no beds this week or w/c; [facility] - left voice message for call back. CM requested additional facility names to send referrals once the patient has been evaluated by PT/OT. CM continues to be available to patient/family and is
monitoring medical plan for needs at discharge.
Plan: Discharge to SNF/rehab once bed is found and precert is obtained.
--- NOTE | 2023-11-22 14:43 | PTCARENOTE ---
Patient received from PACU in bed; IVF infusing; Patient placed on 2L nasal cannula, oxygen saturation 92% on 2L; Right arm SHEILA wrap C/D/I; Right brachial pulse +2, right hand with ecchymosis, +1 edema, patient denies numbness and/or tingling; Call
de santiago within reach; Patient reoriented to room and unit following surgery; Assessment ongoing
[2023-11-22] MEDS: LIPITOR 20 MG PO (17:13)
[2023-11-22] MEDS: ANCEF 5 IV (17:13)
[2023-11-23] MEDS: ANCEF 5 IV (01:48)
[2023-11-23] MEDS: NSS 1000 IV (02:58)
[2023-11-23 03:15] VITALS: BP 135/62
[2023-11-23 06:00] VITALS: BMI 22.8
--- NOTE | 2023-11-23 07:43 | W.PN.CD ---
Today's Communication / Plan
-
- Remained sinus in post op period
- On discharge discontinue HCTZ and start Diltiazem 180 mg QD
- Please call with questions.
Impression / Plan
-
Mechanical fall with right femoral neck fracture and right radial fracture
-with Distal RIGHT RADIUS FX/ ULNAR styloid FX/ RIGHT FEM NECK FX
-s/p cannulated screw fixation right femoral neck fracture and splinting right distal radius fracture 11/20/23
- s/p fixation right distal radius fracture 11/22/23
Atrial fibrillation with rapid ventricular response
-Now in sinus rhythm
-tolerating diltiazem 180mg QD
-Oral Anticoagulation: None HISTOLOGY TECH, start apixaban 5 mg twice daily, timing of start per orthopedic surgery
-[id number]: score at least 5 (HTN, age 75 or more, Vascular disease, female gender)
Fever, resolved, per primary
CAD
-prior single-vessel CABG, cath with 70% ostial LAD, presumed to CASTELLANOS�LAD
-Stable without chest pain
-On simvastatin, goal LDL <70
Hypertension, anticipate decreasing valsartan to allow for rate controlling agent, adjustment to be made postoperatively
Hyponatremia, hold HCTZ
Physical Exam
Vital Signs/Labs
Vital Signs
Temp Pulse Resp BP Pulse Ox
98.2 F 68 16 135/62 97
11/23/23 03:15 11/23/23 03:15 11/23/23 03:15 11/23/23 03:15 11/23/23 03:15
11/22/23 11/23/23 11/24/23
06:59 06:59 06:59
Actual Weight 70 kg
11/22/23 06:01
PT 15.0 Sec (11.4-14.6) H 11/19/23 20:24
INR 1.20 11/19/23 20:24
APTT 34.9 Sec (23.4-35.0) 11/19/23 20:24
Magnesium 2.0 mg/dl (1.6-2.3) 11/19/23 20:24
Physical Exam
Constitutional: No acute distress and Comfortable
EENT: Anicteric and Moist mucous membranes
Cardiovascular: Rhythm & rate is regular, Pedal edema is absent and JVD pressure is normal
Respiratory: Respiratory effort normal, Lungs clear to auscul., Wheeze Absent and Crackles Absent
GI: Soft, Non tender and Normal bowel sounds
Neuro/Psych: Alert, Oriented and AO x 3
Data Reviewed
-
Date of Service: November 23, 2023
Medical Decision Making: Reviewed Test Results, Independent Historian Assessment, Test Interpretation and Review of Case with other Provider
EKG: Tracing Personally Visualized and interpreted
Echo: Report Reviewed by me
Medical Tests (PFT, Pathology etc): Discussed with Patient
Labs: Labs Reviewed by me
Old Records: Reviewed
[2023-11-23 07:45] VITALS: BP 132/60
[2023-11-23 07:58] LABS: % Immature Granulocytes 0.4 % (0-0.5); % Lymphocytes 6.5 % (20.5-51.1); % Monocytes 9.1 % (1.7-9.3); Absolute Lymphocytes 0.5 10^3/uL (1.2-3.4); Absolute Monocytes 0.7 10^3/uL (0.1-0.6); Absolute Neutrophils 6.5 10^3/uL (1.4-6.5); Hematocrit 32.6 % (37.0-47.0); Hemoglobin 11.3 g/dL (12.0-16.0); Mean Corp Hgb Conc. 34.7 g/dL (33.0-37.0); Mean Corpuscular Hgb 31.6 pg (27.0-31.0); Mean Corpuscular Volume 91.1 fL (81.0-99.0); Mean Platelet Volume 10.5 fL (7.4-10.4); Nucleated Red Blood Cells % 0 %; Platelet Count 148 10^3/uL (130-400); Red Blood Cell Count 3.58 10^6/uL (4.20-5.40); Red Cell Dist. Width 13.3 % (11.5-14.5); White Blood Cell Count 7.7 10^3/uL (4.8-10.8)
[2023-11-23] MEDS: CARDIZEM CD 180 MG PO (08:30)
[2023-11-23] MEDS: THERAGRAN 1 TABLET PO (08:30)
[2023-11-23] MEDS: OSCAL CAL 500 1000 MG PO (08:30)
[2023-11-23] MEDS: MIRALAX PO (08:31)
[2023-11-23] MEDS: TYLENOL 1000 MG PO ×3 (08:31→21:06)
[2023-11-23] MEDS: COLACE 100 MG PO (08:31)
[2023-11-23] MEDS: LOVENOX 40 MG SC (08:32)
--- NOTE | 2023-11-23 10:38 | W.PN.ORTHO ---
Today's Communication / Plan
-
88 Yo F POD 1 s/p ORIF R distal radius fx, POD 3 s/p closed reduction cannulated screw fixation right fem neck fx
WBAT RLE
NWB RUE in splint, OK To bear weight through platform walker
PT/OT
DVT ppx: OK To start eliquis per cardiac recommendations for DVT ppx
pain control
Medical management per primary team
Follow up outpatient with myself in 2 weeks for planned removal of jose/sutures
Assessment
.
Dressing:
Clean, dry and intact.
Subjective
.
.:
Patient resting comfortably in chair. No acute overnight events.
Vital Signs and Labs
.
Vital Signs and Labs:
Lab Results
11/23/23 07:04
11/22/23 06:01
Temp Pulse Resp BP Pulse Ox
98.5 F 67 17 132/60 94
11/23/23 07:45 11/23/23 08:30 11/23/23 07:45 11/23/23 08:30 11/23/23 08:00
PT 15.0 Sec (11.4-14.6) H 11/19/23 20:24
INR 1.20 11/19/23 20:24
Physical Exam
-
MSK RUE splint in place, SILT in all distributions distally, moving fingers, moderate swelling, bcr
MSK RLE dressing in place, distal motor and sensation grossly intact, equal leg lengths
--- NOTE | 2023-11-23 11:03 | W.PN.HOSP.TC ---
Today's Communication/Plan
-
Start Eliquis
Ongoing dispo
Pain control
Monitor blood pressure well-controlled
Assessment / Plan
Assessment / Plan
General: Conversant and Pain; No Fever or Chills
HEENT: NormoCephalic, Anicteric, Moist mucous membranes, Atraumatic, [place] Conjunctivae, No Ptosis and Neck Nontender
Respiratory: Clear; No Wheezes, Rales or Rhonchi
Cardiac: S1/S2, irregularly irregular
GI: Soft, Non Tender, Non Distended, Normal Bowel Sounds and No Hepatosplenomegaly
Musculoskeletal: No Clubbing, No Cyanosis and Other (RUE in splint/charles wrapped. Able to move all 4 fingers and R thumb. no numbing or tingling. right hip slight swelling at greater trochanter-aquacell dressing noted. )
Skin: Warm and Dry; No Rash
Neuro: AO x 3, Nonfocal/grossly intact, Cranial Nerves Intact and No Sensory Deficits; No Slurred Speech, Facial Droop or Tremors
Psych: Calm
# Mechanical fall with Distal RIGHT RADIUS FX/ ULNAR styloid FX/ RIGHT FEM NECK FX
#History fracture right wrist April 2023
-type and screen sent from ER
-Ice, rest, elevate
-Pain control, bowel regimen
-Consult PT/OT/case management consult
-s/p cannulated screw fixation of right femoral neck fracture on 11/[address] Sebastian
-s/p R distal radius fracture s/p ORIF on 11/21 w
-seen by Kiya.
# New onset of atrial fibrillation with rapid ventricular response
-Started on Cardizem drip and now on p.o. Cardizem 180mg daily. Normal sinus rhythm.
-Per orthopedic okay to be started on Eliquis.
-Cardiology evaluation
#Fever
-resolved. if repeat episode check blood culture, ua and cxr
-monitor fever curve. wbc wnl. afebrile for >48h.
#YOAV likely secondary to prerenal versus ATN with episodes of hypotension in setting of A-fib versus use of diuretics HCTZ
-Cr stabilized and downtrended.
#HTN�benign
-Hold valsartan in setting of YOAV. May need reduce dose pending bp stabilization
-Can probably discontinue HCTZ on discharge
#Mild hyponatremia likely 2/2 HCTZ and vs. suspected SIADH in setting of severe pain
-Hold HCTZ. resolved.
#HLD
-Continue Zocor
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
Follows at [place] cardiology
# Arthritis, fractures
DVT prophylaxis-eliquis.
DNR per patient
PT OT/SNF. Patient agreeable. Case management aware ongoing process.
Anticipated Discharge: 24 - 48 hours
Subjective/Interval History
-
Date of Service: November 23, 2023
States of intermittent right wrist pain
Tolerating diet
Had bowel movement earlier today
Objective Data
-
Labs:
Laboratory Results
11/23/23
07:04
WBC 7.7
Hgb 11.3 L
Hct 32.6 L
Plt Count 148
Vital Signs:
Vital Signs
Temp Pulse Resp BP Pulse Ox
98.5 F 67 17 132/60 94
11/23/23 07:45 11/23/23 08:30 11/23/23 07:45 11/23/23 08:30 11/23/23 08:00
I&O
11/22/23 11/23/23 11/24/23
06:59 06:59 06:59
Intake Total 1740 / 1740 2585 / 2585
Balance 1740 / 1740 2585 / 2585
Data Reviewed
-
Total Time Spent with Patient (in minutes): 55
[2023-11-23 11:46] VITALS: BP 134/61
[2023-11-23 15:12] VITALS: BP 142/61
[2023-11-23] MEDS: LIPITOR 20 MG PO (17:02)
[2023-11-23 19:18] VITALS: BP 141/68
[2023-11-23] MEDS: ELIQUIS 5 MG PO (20:26)
[2023-11-23] MEDS: COLACE PO (20:27)
[2023-11-23 23:16] VITALS: BP 139/61
[2023-11-24 03:06] VITALS: BP 123/68
[2023-11-24 06:00] VITALS: BMI 23.8
[2023-11-24 07:09] LABS: % Basophils 0.2 % (0-2); % Eosinophils 0.8 % (0-6); % Immature Granulocytes 0.3 % (0-0.5); % Lymphocytes 19.2 % (20.5-51.1); % Monocytes 8.6 % (1.7-9.3); % Neutrophils 70.9 % (42.2-75.2); Absolute Eosinophils 0.1 10^3/uL (0-0.7); Absolute Lymphocytes 1.2 10^3/uL (1.2-3.4); Absolute Monocytes 0.5 10^3/uL (0.1-0.6); Absolute Neutrophils 4.4 10^3/uL (1.4-6.5); Hematocrit 32.9 % (37.0-47.0); Hemoglobin 11.4 g/dL (12.0-16.0); Mean Corp Hgb Conc. 34.7 g/dL (33.0-37.0); Mean Corpuscular Hgb 31.9 pg (27.0-31.0); Mean Corpuscular Volume 92.2 fL (81.0-99.0); Mean Platelet Volume 10.5 fL (7.4-10.4); Nucleated Red Blood Cells % 0 %; Platelet Count 149 10^3/uL (130-400); Red Blood Cell Count 3.57 10^6/uL (4.20-5.40); Red Cell Dist. Width 13.4 % (11.5-14.5); White Blood Cell Count 6.2 10^3/uL (4.8-10.8)
[2023-11-24 07:38] VITALS: BP 177/79
[2023-11-24] MEDS: OSCAL CAL 500 1000 MG PO (07:50)
[2023-11-24] MEDS: CARDIZEM CD 180 MG PO (07:51)
[2023-11-24] MEDS: TYLENOL 1000 MG PO ×3 (07:51→21:31)
[2023-11-24] MEDS: THERAGRAN 1 TABLET PO (07:51)
[2023-11-24] MEDS: ELIQUIS 5 MG PO ×2 (07:51→19:30)
[2023-11-24] MEDS: COLACE PO (08:04)
[2023-11-24] MEDS: MIRALAX PO (08:05)
[2023-11-24 11:19] VITALS: BP 168/76
--- NOTE | 2023-11-24 11:39 | W.PN.HOSP.TC ---
Today's Communication/Plan
-
restart diovan
monitor BP
await placement
cardizem/eliquis
pt/ot
Assessment / Plan
Assessment / Plan
General: Conversant and Pain; No Fever or Chills
HEENT: NormoCephalic, Anicteric, Moist mucous membranes, Atraumatic, [place] Conjunctivae, No Ptosis and Neck Nontender
Respiratory: Clear; No Wheezes, Rales or Rhonchi
Cardiac: S1/S2, irregularly irregular
GI: Soft, Non Tender, Non Distended, Normal Bowel Sounds and No Hepatosplenomegaly
Musculoskeletal: No Clubbing, No Cyanosis and Other (RUE in splint/charles wrapped. Able to move all 4 fingers and R thumb. no numbing or tingling. right hip slight swelling at greater trochanter-aquacell dressing noted. )
Skin: Warm and Dry; No Rash
Neuro: AO x 3, Nonfocal/grossly intact, Cranial Nerves Intact and No Sensory Deficits; No Slurred Speech, Facial Droop or Tremors
Psych: Calm
# Mechanical fall with Distal RIGHT RADIUS FX/ ULNAR styloid FX/ RIGHT FEM NECK FX
#History fracture right wrist April 2023
-type and screen sent from ER
-Ice, rest, elevate
-Pain control, bowel regimen
-Consult PT/OT/case management consult
-s/p cannulated screw fixation of right femoral neck fracture on 11/[address] Sebastian
-s/p R distal radius fracture s/p ORIF on 11/[address] Sebastian
-seen by Kiya.
# New onset of atrial fibrillation with rapid ventricular response
-Started on Cardizem drip and now on p.o. Cardizem 180mg daily. Normal sinus rhythm.
-Per orthopedic okay to be started on Eliquis.
-Cardiology evaluation
#Fever
-resolved. if repeat episode check blood culture, ua and cxr
-monitor fever curve. wbc wnl. afebrile for >48h.
#YOAV likely secondary to prerenal versus ATN with episodes of hypotension in setting of A-fib versus use of diuretics HCTZ
-Cr stabilized and downtrended.
#HTN�benign
-Creatinine has stabilized. Restart valsartan at 80 mg and can uptitrate as needed. BP elevated.
-Can probably discontinue HCTZ on discharge
#Mild hyponatremia likely 2/2 HCTZ and vs. suspected SIADH in setting of severe pain
-Hold HCTZ. resolved.
#HLD
-Continue Zocor
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
Follows at [place] [facility]
# Arthritis, fractures
DVT prophylaxis-eliquis.
DNR per patient
PT OT/SNF. Patient agreeable. Case management aware ongoing process.
Anticipated Discharge: > 48 hours
Subjective/Interval History
-
Date of Service: November 24, 2023
States of right wrist soreness
Troponin normal
Agreeable to take pain meds as needed
Objective Data
-
Labs:
Laboratory Results
11/24/23
06:12
WBC 6.2
Hgb 11.4 L
Hct 32.9 L
Plt Count 149
Vital Signs:
Vital Signs
Temp Pulse Resp BP Pulse Ox
97.8 F 74 17 168/76 96
11/24/23 11:19 11/24/23 11:19 11/24/23 11:19 11/24/23 11:19 11/24/23 11:19
I&O
11/23/23 11/24/23 11/25/23
06:59 06:59 06:59
Intake Total 2585 / 2585 1800 / 1800
Balance 2585 / 2585 1800 / 1800
Data Reviewed
-
Total Time Spent with Patient (in minutes): 55
[2023-11-24] MEDS: DIOVAN 80 MG PO (11:53)
--- NOTE | 2023-11-24 14:34 | CM ---
Addendum entered by Alisha Ferrer 11/24/23 16:17:
Called Diana at [facility] to get accepting MD and NPI #'s to initiate auth in [employer]. Left message.
Addendum entered by Alisha Ferrer 11/24/23 16:09:
NEEDS INSURANCE AUTH BEFORE DISCHARGE.
Addendum entered by Alisha Ferrer 11/24/23 16:03:
[facility] has accepted patient. Patient and son are in agreement. MD notified. Contact at [facility] is Diana @ [phone]. Message left for Diana that patient has accepted bed. Per MD, patient is medically cleared for discharge
on Saturday11/25/23.
Original Note:
Additional referrals for STR forwarded.
[2023-11-24 15:15] VITALS: BP 138/73
[2023-11-24] MEDS: LIPITOR 20 MG PO (17:15)
[2023-11-24 19:20] VITALS: BP 131/83
[2023-11-24] MEDS: COLACE 100 MG PO (19:30)
[2023-11-24 23:15] VITALS: BP 130/59
[2023-11-25] VITALS (8 sets, daily range): BP systolic 144–166; BP diastolic 64–79; PULSE 67–69; O2SAT 96; BMI 23.4
[2023-11-25 06:21] LABS: % Basophils 0.4 % (0-2); % Eosinophils 2.5 % (0-6); % Immature Granulocytes 0.8 % (0-0.5); % Lymphocytes 17.6 % (20.5-51.1); % Monocytes 11.1 % (1.7-9.3); % Neutrophils 67.6 % (42.2-75.2); Absolute Eosinophils 0.1 10^3/uL (0-0.7); Absolute Lymphocytes 0.9 10^3/uL (1.2-3.4); Absolute Monocytes 0.6 10^3/uL (0.1-0.6); Absolute Neutrophils 3.5 10^3/uL (1.4-6.5); Hematocrit 32.7 % (37.0-47.0); Hemoglobin 11.2 g/dL (12.0-16.0); Mean Corp Hgb Conc. 34.3 g/dL (33.0-37.0); Mean Corpuscular Hgb 31.5 pg (27.0-31.0); Mean Corpuscular Volume 92.1 fL (81.0-99.0); Nucleated Red Blood Cells % 0 %; Platelet Count 155 10^3/uL (130-400); Red Blood Cell Count 3.55 10^6/uL (4.20-5.40); Red Cell Dist. Width 13.4 % (11.5-14.5); White Blood Cell Count 5.1 10^3/uL (4.8-10.8)
[2023-11-25 06:46] LABS: Blood Urea Nitrogen 17 mg/dl (7-17); Calcium 8.8 mg/dl (8.4-10.2); Carbon Dioxide 27 mmol/L (22-30); Chloride 106 mmol/L (98-107); Estimated Creatinine Clearance 69 ml/min; Glucose 96 mg/dl (70-99); Potassium 3.8 mmol/L (3.5-5.1); Sodium 135 mmol/L (135-145); eGFR > 60.00
[2023-11-25] MEDS: CARDIZEM CD 180 MG PO (07:40)
[2023-11-25] MEDS: TYLENOL 1000 MG PO ×3 (07:40→22:47)
[2023-11-25] MEDS: THERAGRAN 1 TABLET PO (07:40)
[2023-11-25] MEDS: DIOVAN 80 MG PO (07:40)
[2023-11-25] MEDS: OSCAL CAL 500 1000 MG PO (07:40)
[2023-11-25] MEDS: ELIQUIS 5 MG PO ×2 (07:40→20:46)
[2023-11-25] MEDS: COLACE PO ×2 (07:46→20:45)
[2023-11-25] MEDS: MIRALAX PO (07:46)
--- NOTE | 2023-11-25 09:30 | CM ---
Addendum entered by Chelo Miller RN 11/25/23 15:42:
IMM signed and placed on chart.
Original Note:
Reviewed the chart notes and CM spoke with [facility] admissions at [facility] ([phone]). [facility] NPI# [id number] and Dr. Roman NPI# [id number]. Auth started in [employer] Pended# [id number]. CM continues to be available to patient/family
and is monitoring medical plan for needs at discharge.
Plan: Discharge to [facility] once auth obtained. CM explained to [facility] that an auth can take anywhere from 24-72hrs. Per Diana, they will not hold bed pending auth for more than 24 hours. Auth submitted.
--- NOTE | 2023-11-25 13:52 | W.PN.HOSP.TC ---
Today's Communication/Plan
-
d/c planning for rehab
Assessment / Plan
Assessment / Plan
# Mechanical fall with Distal RIGHT RADIUS FX/ ULNAR styloid FX/ RIGHT FEM NECK FX
#History fracture right wrist April 2023
-type and screen sent from ER
-Ice, rest, elevate
-Pain control, bowel regimen
-Consult PT/OT/case management consult
-s/p cannulated screw fixation of right femoral neck fracture on 11/[address] Sebastian
-s/p R distal radius fracture s/p ORIF on 11/[address] Sebastian
-seen by Kiya.
# New onset of atrial fibrillation with rapid ventricular response
-Started on Cardizem drip and now on p.o. Cardizem 180mg daily. Normal sinus rhythm.
-Per orthopedic okay to be started on Eliquis.
-Cardiology evaluation
#Fever
-resolved. if repeat episode check blood culture, ua and cxr
-monitor fever curve. wbc wnl. afebrile for >48h.
#YOAV likely secondary to prerenal versus ATN with episodes of hypotension in setting of A-fib versus use of diuretics HCTZ
-Cr stabilized and downtrended.
#HTN�benign
-Creatinine has stabilized. Restart valsartan at 80 mg and can uptitrate as needed. BP elevated.
-Can probably discontinue HCTZ on discharge
#Mild hyponatremia likely 2/2 HCTZ and vs. suspected SIADH in setting of severe pain
-Hold HCTZ. resolved.
#HLD
-Continue Zocor
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
Follows at [facility]
# Arthritis, fractures
DVT prophylaxis-eliquis.
DNR per patient
Anticipated Discharge: Today
Subjective/Interval History
-
Date of Service: November 25, 2023
resting comfortably in chair
Some right arm swelling
no other issues overnight
Objective Data
-
Labs:
Laboratory Results
11/25/23
06:04
WBC 5.1
Hgb 11.2 L
Hct 32.7 L
Plt Count 155
Sodium 135
Potassium 3.8
Chloride 106
Carbon Dioxide 27
BUN 17
Creatinine 0.5 L
Glucose 96
Calcium 8.8
Vital Signs:
Vital Signs
Temp Pulse Resp BP Pulse Ox
98.5 F 67 18 155/77 96
11/25/23 11:04 11/25/23 11:04 11/25/23 11:04 11/25/23 11:04 11/25/23 11:04
I&O
11/24/23 11/25/23 11/26/23
06:59 06:59 06:59
Intake Total 1800 / 1800 1640 / 1640
Output Total 750 / 750
Balance 1800 / 1800 890 / 890
Review of Systems
-
Respiratory: Reports No Symptoms
Cardiac: Reports No Symptoms
Abdomen/GI: Reports No Symptoms
Physical Exam
-
General: No Apparent Distress and Comfortable
HEENT: Negative Oxygen
Respiratory: Clear to Auscultation
Cardiac: Regular Rhythm and S1/S2; Negative Murmur or Rub
GI: Soft, Nontender, Nondistended and Normal Bowel Sounds
Musculoskeletal: No Edema
Neuro: Awake, Alert, Oriented, No Motor Deficits and Nonfocal/Grossly Intact
Psych: Calm
[2023-11-25] MEDS: LIPITOR 20 MG PO (17:02)
[2023-11-26 03:12] VITALS: BP 176/83
[2023-11-26 03:30] VITALS: BP 125/70
--- NOTE | 2023-11-26 03:48 | PTCARENOTE ---
Pt ambulated w assistx1 and platform walker to toilet and back without c/o pain. Pt sat OOB to chair till about 2230. VSS, assessment ongoing.
[2023-11-26 06:00] VITALS: BMI 23.1
[2023-11-26 07:45] VITALS: BP 113/73
[2023-11-26] MEDS: TYLENOL 1000 MG PO ×3 (08:24→21:42)
[2023-11-26] MEDS: OSCAL CAL 500 1000 MG PO (08:24)
[2023-11-26] MEDS: COLACE PO ×2 (08:25→20:25)
[2023-11-26] MEDS: CARDIZEM CD 180 MG PO (08:25)
[2023-11-26] MEDS: THERAGRAN 1 TABLET PO (08:25)
[2023-11-26] MEDS: ELIQUIS 5 MG PO ×2 (08:25→20:24)
[2023-11-26] MEDS: DIOVAN 80 MG PO (08:25)
[2023-11-26] MEDS: MIRALAX PO (08:26)
--- NOTE | 2023-11-26 09:21 | W.PN.HOSP.TC ---
Today's Communication/Plan
-
d/c planning for snf rehab
Assessment / Plan
Assessment / Plan
# Mechanical fall with Distal RIGHT RADIUS FX/ ULNAR styloid FX/ RIGHT FEM NECK FX
#History fracture right wrist April 2023
-type and screen sent from ER
-Ice, rest, elevate
-Pain control, bowel regimen
-Consult PT/OT/case management consult
-s/p cannulated screw fixation of right femoral neck fracture on 11/[address] Sebastian
-s/p R distal radius fracture s/p ORIF on 11/[address] Sebastian
-seen by Kiya.
# New onset of atrial fibrillation with rapid ventricular response
-Started on Cardizem drip and now on p.o. Cardizem 180mg daily. Normal sinus rhythm.
-Per orthopedic okay to be started on Eliquis.
-Cardiology evaluation
#Fever
-resolved. if repeat episode check blood culture, ua and cxr
-monitor fever curve. wbc wnl. afebrile for >48h.
#YOAV likely secondary to prerenal versus ATN with episodes of hypotension in setting of A-fib versus use of diuretics HCTZ
-Cr stabilized and downtrended.
#HTN�benign
-Creatinine has stabilized. Restart valsartan at 80 mg and can uptitrate as needed. BP elevated.
-Can probably discontinue HCTZ on discharge
#Mild hyponatremia likely 2/2 HCTZ and vs. suspected SIADH in setting of severe pain
-Hold HCTZ. resolved.
#HLD
-Continue Zocor
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
Follows at [facility]
# Arthritis, fractures
DVT prophylaxis-eliquis.
DNR per patient
More than 30 minutes spent in discharge including
Final examination of the patient
Summarizing hospital stay
Instructions for continuing care to all relevant caregivers
Preparation of discharge records, prescriptions, and referral forms
Total time spent (in minutes): 40 mins
Anticipated Discharge: Today
Subjective/Interval History
-
Date of Service: November 26, 2023
resting comfortably in bed
worried about putting weight on the leg
no other issues
Objective Data
-
Vital Signs:
Vital Signs
Temp Pulse Resp BP Pulse Ox
98.3 F 56 20 113/73 98
11/26/23 07:45 11/26/23 07:45 11/26/23 07:45 11/26/23 07:45 11/26/23 07:45
I&O
11/25/23 11/26/23 11/27/23
06:59 06:59 06:59
Intake Total 1640 / 1640 960 / 960
Output Total 750 / 750
Balance 890 / 890 960 / 960
Review of Systems
-
Respiratory: Reports No Symptoms
Cardiac: Reports No Symptoms
Abdomen/GI: Reports No Symptoms
Physical Exam
-
General: No Apparent Distress and Comfortable
HEENT: Negative Oxygen
Respiratory: Clear to Auscultation
Cardiac: Regular Rhythm and S1/S2; Negative Murmur or Rub
GI: Soft, Nontender, Nondistended and Normal Bowel Sounds
Musculoskeletal: No Edema
Neuro: Awake, Alert, Oriented, No Motor Deficits and Nonfocal/Grossly Intact
Psych: Calm
[2023-11-26 11:35] VITALS: BP 161/81
--- NOTE | 2023-11-26 13:17 | CM ---
Reviewed the chart notes and attempted to contact [facility] to follow-up on authorization request from yesterday. Per [facility], system is down. CM checked [employer] dash-board. Request is still in pended status. CM continues to be available to
patient/family and is monitoring medical plan for needs at discharge.
Plan: Discharge to [facility] once auth obtained from [facility].
[2023-11-26 15:10] VITALS: BP 157/75
[2023-11-26] MEDS: LIPITOR 20 MG PO (17:19)
[2023-11-26 23:00] VITALS: BP 139/67
[2023-11-27 05:59] VITALS: BMI 22.6
[2023-11-27 06:00] VITALS: BMI 22.6
[2023-11-27 07:10] VITALS: BP 151/65
[2023-11-27 07:20] VITALS: BP 151/65
[2023-11-27] MEDS: OSCAL CAL 500 1000 MG PO (09:35)
[2023-11-27] MEDS: THERAGRAN 1 TABLET PO (09:36)
[2023-11-27] MEDS: ELIQUIS 5 MG PO ×2 (09:37→20:57)
[2023-11-27] MEDS: TYLENOL 1000 MG PO ×3 (09:37→20:57)
[2023-11-27] MEDS: DIOVAN 80 MG PO (09:37)
[2023-11-27] MEDS: CARDIZEM CD 180 MG PO (09:37)
[2023-11-27] MEDS: MIRALAX PO (09:41)
[2023-11-27] MEDS: COLACE PO (09:42)
[2023-11-27 10:36] VITALS: BP 148/85; PULSE 53
[2023-11-27 10:41] VITALS: BP 148/85; PULSE 83; O2SAT 100
--- NOTE | 2023-11-27 10:44 | CM ---
CM spoke with the patient's son via telephone. Per [employer], auth is pended. Call placed to [employer], still in review. Per [employer], will need to wait until review completed and a paper sales representative will reach out to CM with result. Jennifer admissions
liaison with [facility] updated. CM continues to be available to patient/family and is monitoring medical plan for needs at discharge.
Plan: Discharge to SNF ([facility]) once auth obtained.
--- NOTE | 2023-11-27 13:49 | W.PN.HOSP.TC ---
Addendum entered and electronically signed by Chavez Johnson MD 11/28/23 07:29:
Adjust diagnosis :
Anemia, due to acute blood loss and hemodilution
Original Note:
Today's Communication/Plan
-
d/c rehab
pending auth approval
Assessment / Plan
Assessment / Plan
# Mechanical fall with Distal RIGHT RADIUS FX/ ULNAR styloid FX/ RIGHT FEM NECK FX
#History fracture right wrist April 2023
-type and screen sent from ER
-Ice, rest, elevate
-Pain control, bowel regimen
-Consult PT/OT/case management consult
-s/p cannulated screw fixation of right femoral neck fracture on 11/[address] Sebastian
-s/p R distal radius fracture s/p ORIF on 11/[address] Sebastian
-seen by Kiya.
# New onset of atrial fibrillation with rapid ventricular response
-Started on Cardizem drip and now on p.o. Cardizem 180mg daily. Normal sinus rhythm.
-Per orthopedic okay to be started on Eliquis.
-Cardiology evaluation
#Fever
-resolved. if repeat episode check blood culture, ua and cxr
-monitor fever curve. wbc wnl. afebrile for >48h.
#YOAV likely secondary to prerenal versus ATN with episodes of hypotension in setting of A-fib versus use of diuretics HCTZ
-Cr stabilized and downtrended.
#HTN�benign
-Creatinine has stabilized. Restart valsartan at 80 mg and can uptitrate as needed. BP elevated.
-Can probably discontinue HCTZ on discharge
#Mild hyponatremia likely 2/2 HCTZ and vs. suspected SIADH in setting of severe pain
-Hold HCTZ. resolved.
#HLD
-Continue Zocor
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
Follows at [facility]
# Arthritis, fractures
DVT prophylaxis-eliquis.
DNR per patient
Anticipated Discharge: Today
Subjective/Interval History
-
Date of Service: November 27, 2023
no complains ovenright
Objective Data
-
Vital Signs:
Vital Signs
Temp Pulse Resp BP Pulse Ox
97.4 F 65 17 151/65 96
11/27/23 07:10 11/27/23 07:10 11/27/23 07:10 11/27/23 07:10 11/27/23 07:10
I&O
11/26/23 11/27/23 11/28/23
06:59 06:59 06:59
Intake Total 960 / 960 840 / 840
Balance 960 / 960 840 / 840
Review of Systems
-
Respiratory: Reports No Symptoms
Cardiac: Reports No Symptoms
Abdomen/GI: Reports No Symptoms
Physical Exam
-
General: No Apparent Distress and Comfortable
HEENT: Negative Oxygen
Respiratory: Clear to Auscultation
Cardiac: Regular Rhythm and S1/S2; Negative Murmur or Rub
GI: Soft, Nontender, Nondistended and Normal Bowel Sounds
Musculoskeletal: No Edema and Other (Right arm charles wrap/dressing in place)
Neuro: Awake, Alert, Oriented, No Motor Deficits and Nonfocal/Grossly Intact
Psych: Calm
--- NOTE | 2023-11-27 13:50 | PN.CDI ---
CDI
- -
CDI:
Physician Documentation Request
Admit Date: 11/18/23 13:41
Dear Doctor lAex,
Clinical Indicators:
Patient admitted with distal radius and right femoral neck fractures;s/p OR 11/19 (screw fixation) & 11/21 (ORIF).
Anesthesia Reports: 11/19 EBL 25 ml IVF 900 ml
11/21 EBL 25 ml IVF 800 ml
Hgb/Hct trend:
11/21/23 11/23/23 11/25/23
05:03 07:04 06:04
Hgb 14.1 11.3 L 11.2 L
Hct 41.0 32.6 L 32.7 L
Based on the above, could you clarify in the progress notes, the appropriate diagnosis, if significant, that supports the above abnormalities and additional evaluation, monitoring and/or treatment rendered:
Anemia, due to acute blood loss and hemodilution
Anemia due to hemodilution only
Other, please specify
Use of terms such as suspected, likely, concern for, or probable (associated with a specific diagnosis that is being evaluated, monitored, or treated as if it exists) are acceptable and can be coded in the inpatient setting, when documented at the
time of discharge.
Thank you,
Georgina Vallejo RN BSN
CDI Specialist
available via tiger text
Please use your independent medical judgment in providing your response.
[2023-11-27 15:06] VITALS: BP 146/66
[2023-11-27] MEDS: LIPITOR 20 MG PO (18:43)
[2023-11-27] MEDS: COLACE 100 MG PO (20:57)
[2023-11-27 23:00] VITALS: BP 124/63
[2023-11-28 06:00] VITALS: BMI 22.2
[2023-11-28 07:55] VITALS: BP 147/68
--- NOTE | 2023-11-28 08:03 | W.PN.HOSP.TC ---
Addendum entered and electronically signed by Chavez Johnson MD 11/28/23 11:28:
Correction:
Pending Discharge for rehab
Original Note:
Today's Communication/Plan
-
d/c home
Assessment / Plan
Assessment / Plan
# Mechanical fall with Distal RIGHT RADIUS FX/ ULNAR styloid FX/ RIGHT FEM NECK FX
#History fracture right wrist April 2023
-type and screen sent from ER
-Ice, rest, elevate
-Pain control, bowel regimen
-s/p cannulated screw fixation of right femoral neck fracture on 11/[address] Sebastian
-s/p R distal radius fracture s/p ORIF on 11/[address] Sebastian
-seen by Kiya.
# New onset of atrial fibrillation with rapid ventricular response
-Started on Cardizem drip and now on p.o. Cardizem 180mg daily. Normal sinus rhythm.
-Back on eliquis
-Cardiology evaluated
#Fever
-resolved. if repeat episode check blood culture, ua and cxr
-monitor fever curve. wbc wnl. afebrile for >48h.
#YOAV likely secondary to prerenal versus ATN with episodes of hypotension in setting of A-fib versus use of diuretics HCTZ
-Cr stabilized and downtrended.
#HTN�benign
-back on valsartan
-Can probably discontinue HCTZ on discharge
#Mild hyponatremia likely 2/2 HCTZ and vs. suspected SIADH in setting of severe pain
-Hold HCTZ. resolved.
#HLD
-Continue Zocor
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
Follows at [facility]
# Arthritis, fractures
DVT prophylaxis-eliquis.
DNR per patient
Anticipated Discharge: Today
Subjective/Interval History
-
Date of Service: November 28, 2023
no new complains overnight
Objective Data
-
Vital Signs:
Vital Signs
Temp Pulse Resp BP Pulse Ox
98.1 F 72 18 124/63 94
11/27/23 23:00 11/27/23 23:00 11/27/23 23:00 11/27/23 23:00 11/27/23 23:00
I&O
11/27/23 11/28/23 11/29/23
06:59 06:59 06:59
Intake Total 840 / 840 840 / 840
Balance 840 / 840 840 / 840
Review of Systems
-
Respiratory: Reports No Symptoms
Cardiac: Reports No Symptoms
Abdomen/GI: Reports No Symptoms
Physical Exam
-
General: No Apparent Distress and Comfortable
HEENT: Negative Oxygen
Respiratory: Clear to Auscultation
Cardiac: Regular Rhythm and S1/S2; Negative Murmur or Rub
GI: Soft, Nontender, Nondistended and Normal Bowel Sounds
Musculoskeletal: No Edema and Other (Right arm charles wrap/dressing in place)
Neuro: Awake, Alert, Oriented, No Motor Deficits and Nonfocal/Grossly Intact
Psych: Calm
[2023-11-28] MEDS: ELIQUIS 5 MG PO (08:35)
[2023-11-28] MEDS: TYLENOL 1000 MG PO (08:36)
[2023-11-28] MEDS: OSCAL CAL 500 1000 MG PO (08:36)
[2023-11-28] MEDS: CARDIZEM CD 180 MG PO (08:36)
[2023-11-28] MEDS: THERAGRAN 1 TABLET PO (08:37)
[2023-11-28] MEDS: MIRALAX PO (08:37)
[2023-11-28] MEDS: DIOVAN 80 MG PO (08:37)
[2023-11-28] MEDS: COLACE PO (08:38)
--- NOTE | 2023-11-28 10:31 | CM ---
Addendum entered by Chelo Miller RN 11/28/23 14:27:
Auth obtained from [employer] # [id number]; 11/27-12/09; NRD 12/10 with Shu Rodriguez ([phone]; fax: [phone])
Transportation options and estimation of wheelchair van costs explained (approx. $75 to $100 est) and accepted.
Transport form on chart.
Plan: Discharge to [facility]
Call report to: [phone]
Fax report to: [phone]
Original Note:
Reviewed the chart notes and spoke with the patient at the bedside. IMM signed and placed on the chart. Awaiting auth from [employer]. CM continues to be available to patient/family and is monitoring medical plan for needs at discharge.
Plan: Discharge to [facility] once auth from [employer] obtained.
[2023-11-28 15:41] VITALS: BP 119/58
[2023-11-28 15:55] LABS: COVID-19 Antigen Negative (Negative)
--- NOTE | 2023-11-29 17:52 | W.DCSUMMARY ---
Discharge Summary
Discharge Data
Date of Admission: 11/18/23
Date of Discharge: 11/28/23
-
Pending Results: No
Hospital Course
Discharging Physician : Dr Chavez Johnson
Disposition : SNF rehab
Primary care physician : Unknown
Principal Discharge diagnosis :
Mechanical fall
Right distal radial and ulnar styloid fracture.
Right femoral neck fracture
New onset atrial fibrillation with rapid ventricular rate
Episode of fever
Acute kidney injury
Chronic Discharge diagnosis :
Essential hypertension
Hyperlipidemia
History of coronary disease with bypass
History of osteoarthritis
Hospital Course :
Patient is 88-year-old female with above-mentioned past medical history was brought into ER after having a slip and fall at [employer] causing her to land on right wrist and hip. Patient have noticed to having visible wrist deformity and hip pain.
X-ray of the wrist showing distal radial/ulnar styloid fracture and hip showing intertrochanteric fracture. Orthopedic surgery was consulted and patient underwent cannulated screw fixation of femoral neck fracture and closed reduction and splinting
of distal radial fracture. Postsurgery patient was recommended to be weightbearing as tolerated on right foot and nonweightbearing on right upper extremity. Patient developed postop atrial fibrillation with rapid ventricular rate and needed to be
started on Cardizem drip. Cardiology was involved in care and patient was later transitioned to oral diltiazem. Patient was also started on Eliquis for anticoagulation. Patient had episode of fever without any clear source, possibly postop fever
and did not require any further intervention. [facility] was [facility] to [facility] for [facility] post medical stabilization.
Important imaging findings :
None
Procedure findings :
None
Discharge Plan
-
Patient Disposition: Retirement/SNF
Discharge Diagnosis/Procedures: Fall leading to distal right radius fracture and right femur fracture
status post cannulated screw fixation of right femoral neck fracture on 11/[address] Sebastian
status post Roght distal radius fracture s/p ORIF on 11/21 Dr. Sebastian
New onset of atrial fibrillation with rapid ventricular response
Fever
Acute kidney injury likely secondary to prerenal versus ATN with episode of hypotension in the setting of atrial fibrillation versus use of diuretics hydrochlorothiazide
Mild hyponatremia secondary to HCTZ
Condition: Fair
Diet: As tolerated
Activity: Other activity
Additional Activity: WBAT RLE
NWB RUE in splint, OK To bear weight through platform walker
Driving Restrictions: Not until seen by your Dr
Other Services: PT
Referrals:
Shiva Norris MD [Active] - in one month
Franco Sebastian MD [Active] - in two weeks (Follow up outpatient in 2 weeks for planned removal of jsoe/sutures)
UNKNOWN - PT DOES,NOT KNOW [Family Provider] - in less than 1 week
Prescriptions:
New
acetaminophen [Tylenol Extra Strength] 500 mg Tablet
1,000 mg PO TID Qty: 30 0RF
oxycodone 5 mg Tablet
5 mg PO Q4HPRN PRN (Reason: mod sev pain) Qty: 15 0RF
Eliquis 5 mg Tablet
5 mg PO BID Qty: 60 0RF
polyethylene glycol 3350 [HealthyLax] 17 gram Powder In Packet
17 g PO DAILY Qty: 30 0RF
diltiazem HCl 180 mg Capsule,Extended Release 24hr
180 mg PO DAILY Qty: 30 0RF
valsartan 80 mg Tablet
80 mg PO DAILY Qty: 30 0RF
Continued
therapeutic multivitamin Tablet
1 tab PO DAILY
simvastatin [Zocor] 40 mg Tablet
40 mg PO QPM
acetaminophen 650 mg Tablet Extended Release
650 mg PO DAILY
calcium carbonate [Calcium 600] 600 mg calcium (1,500 mg) Tablet
1,200 mg PO DAILY
Discontinued
aspirin 81 mg Tablet,Delayed Release (Dr/Ec)
81 mg PO QPM
valsartan 320 mg Tablet
320 mg PO QPM
hydrochlorothiazide 25 mg Tablet
25 mg PO DAILY
Discharge Orders:
Discharge Patient (As Directed); Ordered 11/26/23
Ordered By: Chavez Johnson
Discharge Date and Time
Discharge Date/Time: 11/28/23 15:00
Print Language: SLOVAK
== END 2023-11-28 15:00 | DRG 480 ==
LOC: 2 SOUTH 13:41
PROVIDERS: Clinical Nurse Specialist Family Health; Nurse Practitioner Gerontology; ADMITTING PHYSICIAN Hospitalist; ATTENDING PHYSICIAN Hospitalist; EMERGENCY PHYSICIAN Emergency Medicine; OTHER PHYSICIAN Internal Medicine Cardiovascular Disease; OTHER PHYSICIAN Orthopaedic Surgery
PROC: 0QH804Z Insertion of Internal Fixation Device into Right Femoral Shaft, Open Approach (ICD-10-PCS; 2023-11-20)
PROC: 0PSH04Z Reposition Right Radius with Internal Fixation Device, Open Approach (ICD-10-PCS; 2023-11-22)
DX: S72.001A Fracture of unspecified part of neck of right femur, initial encounter for closed fracture (principal); N17.0 Acute kidney failure with tubular necrosis; D62 Acute posthemorrhagic anemia; S52.611A Displaced fracture of right ulna styloid process, initial encounter for closed fracture; E87.1 Hypo-osmolality and hyponatremia; N17.9 Acute kidney failure, unspecified; I50.9 Heart failure, unspecified; I11.0 Hypertensive heart disease with heart failure; I48.91 Unspecified atrial fibrillation; W01.0XXA Fall on same level from slipping, tripping and stumbling without subsequent striking against object, initial encounter; E78.00 Pure hypercholesterolemia, unspecified; Z95.1 Presence of aortocoronary bypass graft; I25.10 Atherosclerotic heart disease of native coronary artery without angina pectoris; M19.90 Unspecified osteoarthritis, unspecified site; Z66 Do not resuscitate; R50.9 Fever, unspecified; Z75.1 Person awaiting admission to adequate facility elsewhere
CPT/HCPCS: 25605; 73110; 73502; 73700; 76000; 80048; 80053; 82962; 83735; 83935; 84100; 84300; 85025; 85610; 85730; 86850; 86900; 86901; 87811; 93005; 96374; 96375; 97110; 97116; 97163; 97164; 97167; 97530; 97535; 99285; C1713

== ENCOUNTER 2025-05-20 16:57 | Inpatient (IN) | payer OTHER, SELFPAY ==
[2025-05-20] VITALS (9 sets, daily range): BP systolic 126–161; BP diastolic 68–88; BMI 25.7
--- NOTE | 2025-05-20 13:22 | ED.MUSCINJ ---
HPI-Injury
<Anthony Rajput PA-C - Last Filed: 05/20/25 16:09>
General
Chief Complaint: Musculo-Skeletal Complaint
Source: patient
Exam Limitations: none
Time Seen by Provider: 05/20/25 13:21
History of Present Illness-Injury
Initial Injury comments:
89-year-old female presents via EMS from home where she fell. She was getting out of her car lost her balance fell onto her left hip. She is on Eliquis for history of atrial fibrillation. She did not hit her head. She complains of left hip pain
and deformity.
Phy Exam
<Anthony Rajput PA-C - Last Filed: 05/20/25 16:09>
Physical Exam
Physical Exam:
General: Well-appearing female no acute respiratory distress
HEENT: Normal cephalic atraumatic no obvious scalp abrasion or hematoma without heart: Regular rate and rhythm
Lungs: Clear no wheeze
Musculoskeletal exam: Left lower extremity shortened and externally rotated.
Vascular: 2+ DP pulse bilateral feet
Skin warm no rash
Injury Course
<Anthony Rajput PA-C - Last Filed: 05/20/25 16:09>
Orders/Labs/Results
Orders:
Orders
05/20/25 13:21
CT Head W/o Iv Contrast Urgent
Comment:
Reason For Exam: fall
CR Hip - LT w/wo Pel 2-3 Vw* Urgent
Comment:
Reason For Exam: fall, deformity
Include a pelvis x-ray?: Yes
05/20/25 13:30
diazePAM [Valium Injection] 2 mg IV NOW STA
05/20/25 13:31
diazePAM [Valium Injection] 10 mg .ROUTE .STK-MED ONE
05/20/25 14:45
Complete Blood Count/With Diff Urgent
Comprehensive Metabolic Panel Urgent
05/20/25 14:48
HYDROmorphone [Dilaudid] 0.5 mg IV NOW STA
05/20/25 15:05
Type+Screen Urgent
BBK Wristband Number:
05/20/25 16:31
Admit/Transfer Patient As Directed
Co-Sign Provider:
Level of Care: Inpatient admission
Assign to:: Telemetry
Physician / Group: krysta
Diagnosis: left femoral neck fracture
Reason for Telemetry: Arrhythmia
Date to Stop Telemetry: 05/23/25
Time to Stop Telemetry: 11:00
Reason for Hospitalization: left femoral neck fracture
Expected length of stay greater than two midnights?: Yes
ELOS- Estimated Length of Stay in days: 3
I certify the patient meets the requirements for IP care: Yes
PRN Pain Medication Management As Directed
May give lesser potent ordered pain med per pt: Yes
preference::
Protocol:: Medication orders for pain may be administered in a
manner that supports deferring to patient preference
when the pt is:
- Requesting an ordered lesser potent pain medication.
Least to most potent pain medications are defined
as: acetaminophen < NSAID < tramadol < opioids
(morphine, oxycodone, hydromorphone).
- Requesting a lesser dose of the same medication IF
ORDERED.
- Requesting a less intrusive route of administration
if both routes are prescribed by the provider (PO <
IV).
05/20/25 16:35
Code Status As Directed
Resuscitation Status: Do not resuscitate
Reached after discussion with pt or family/Healthcare POA: Yes
05/20/25 16:37
DNR Bracelet Application ONCE
05/20/25 16:40
diazePAM [Valium Injection] 5 mg IV NOW STA
05/23/25 11:00
DC Protocol for Telemetry ONCE
Abnormal Lab Results
05/20/25
14:45
MCH 31.5 H pg
(27.0-31.0)
MPV 10.8 H fL
(7.4-10.4)
Abs Immat Gran (auto) 0.1 H 10^3/uL
(0-0.05)
Absolute Monos (auto) 0.8 H 10^3/uL
(0.1-0.6)
Immature Gran % 0.8 H %
(0-0.5)
Monocytes % 11.5 H %
(1.7-9.3)
Sodium 133 L mmol/L
(135-145)
Carbon Dioxide 31 H mmol/L
(22-30)
BUN 20 H mg/dl
(7-17)
AST 41 H U/L
(14-36)
ALT 41 H U/L
(0-35)
05/20/25 14:45
05/20/25 14:45
<Jacob Sanders, DO - Last Filed: 05/20/25 17:00>
Orders/Labs/Results
Orders:
Orders
05/20/25 13:21
CT Head W/o Iv Contrast Urgent
Comment:
Reason For Exam: fall
CR Hip - LT w/wo Pel 2-3 Vw* Urgent
Comment:
Reason For Exam: fall, deformity
Include a pelvis x-ray?: Yes
05/20/25 13:30
diazePAM [Valium Injection] 2 mg IV NOW STA
05/20/25 13:31
diazePAM [Valium Injection] 10 mg .ROUTE .STK-MED ONE
05/20/25 14:45
Complete Blood Count/With Diff Urgent
Comprehensive Metabolic Panel Urgent
05/20/25 14:48
HYDROmorphone [Dilaudid] 0.5 mg IV NOW STA
05/20/25 15:05
Type+Screen Urgent
BBK Wristband Number:
05/20/25 16:31
Admit/Transfer Patient As Directed
Co-Sign Provider:
Level of Care: Inpatient admission
Assign to:: Telemetry
Physician / Group: krysta
Diagnosis: left femoral neck fracture
Reason for Telemetry: Arrhythmia
Date to Stop Telemetry: 05/23/25
Time to Stop Telemetry: 11:00
Reason for Hospitalization: left femoral neck fracture
Expected length of stay greater than two midnights?: Yes
ELOS- Estimated Length of Stay in days: 3
I certify the patient meets the requirements for IP care: Yes
PRN Pain Medication Management As Directed
May give lesser potent ordered pain med per pt: Yes
preference::
Protocol:: Medication orders for pain may be administered in a
manner that supports deferring to patient preference
when the pt is:
- Requesting an ordered lesser potent pain medication.
Least to most potent pain medications are defined
as: acetaminophen < NSAID < tramadol < opioids
(morphine, oxycodone, hydromorphone).
- Requesting a lesser dose of the same medication IF
ORDERED.
- Requesting a less intrusive route of administration
if both routes are prescribed by the provider (PO <
IV).
05/20/25 16:35
Code Status As Directed
Resuscitation Status: Do not resuscitate
Reached after discussion with pt or family/Healthcare POA: Yes
05/20/25 16:37
DNR Bracelet Application ONCE
05/20/25 16:40
diazePAM [Valium Injection] 5 mg IV NOW STA
05/23/25 11:00
DC Protocol for Telemetry ONCE
Abnormal Lab Results
05/20/25
14:45
MCH 31.5 H pg
(27.0-31.0)
MPV 10.8 H fL
(7.4-10.4)
Abs Immat Gran (auto) 0.1 H 10^3/uL
(0-0.05)
Absolute Monos (auto) 0.8 H 10^3/uL
(0.1-0.6)
Immature Gran % 0.8 H %
(0-0.5)
Monocytes % 11.5 H %
(1.7-9.3)
Sodium 133 L mmol/L
(135-145)
Carbon Dioxide 31 H mmol/L
(22-30)
BUN 20 H mg/dl
(7-17)
AST 41 H U/L
(14-36)
ALT 41 H U/L
(0-35)
05/20/25 14:45
05/20/25 14:45
<Anthony Rajput PA-C - Last Filed: 05/20/25 16:09>
MDM/Problems Addressed
Differential Diagnosis Includes:
concern for possible left hip fracture versus dislocation given deformity.
On Eliquis last dose this morning unsure if she hit her head no obvious sign of trauma will order CT of head to evaluate for any intracranial hemorrhage
<Anthony Rajput PA-C - Last Filed: 05/20/25 16:09>
*Pulse Oximetry
Patient hypoxic: no
*Critical Care Note
Total Time (30-74mins, 75-104mins- exclusive of procedures): Not Applicable
<Anthony Rajput PA-C - Last Filed: 05/20/25 16:09>
Update Note
Update Note:
Yeah x-ray consistent with femoral neck fracture. CT of the head was negative. Will admit to hospitalist orthopedics made aware as well.
ED Attending Note
<Anthony Rajput PA-C - Last Filed: 05/20/25 16:09>
-
Portions of this chart may have been created with voice recognition software.� Occasional wrong word or��sound alike� substitutions may have occurred due to the inherent limitations of voice recognition software.
<Jacob Sanders DO - Last Filed: 05/20/25 17:00>
ED Attending Note
Patient seen and examined by attending physician: Yes
I performed the substantive portion of visit, reviewed & personally made and approve the management plan that is documented in note by myself or SHAYLA.: Yes
Discharge Plan
Departure
Patient Disposition: Admit
Date of Disposition: 05/20/25
Time of Disposition: 16:08
Presentation/result/management discussed w/ accepting MD/DO: Hospitalist
Discharge Problem:
Closed fracture of neck of left femur
Interventions
Interventions:
*Risk Screen - Suicide Last Done: 05/20/25 13:19
*General Assessment Last Done: 05/20/25 13:28
*Neglect/Abuse Screening Last Done: 05/20/25 13:19
*ED- Fall Risk Assessment Last Done: 05/20/25 13:28
ED-Musculoskeletal Assessment Last Done: 05/20/25 13:35
[2025-05-20] MEDS: VALIUM INJECTION 2 MG IV (13:36)
[2025-05-20] MEDS: DILAUDID 0.5 MG IV ×3 (14:57→23:16)
[2025-05-20 15:04] LABS: Hematocrit 41.1 % (37.0-47.0); Hemoglobin 14.1 g/dL (12.0-16.0); Mean Corp Hgb Conc. 34.3 g/dL (33.0-37.0); Mean Corpuscular Volume 91.7 fL (81.0-99.0); Nucleated Red Blood Cells % 0 %; Platelet Count 179 10^3/uL (130-400); Red Cell Dist. Width 13.5 % (11.5-14.5)
[2025-05-20 15:15] LABS: ALT (SGPT) 41 U/L (0-35); AST (SGOT) 41 U/L (14-36); Albumin 4.3 g/dl (3.5-5.0); Alkaline Phosphatase 44 U/L (38-126); Blood Urea Nitrogen 20 mg/dl (7-17); Calcium 9.8 mg/dl (8.4-10.2); Carbon Dioxide 31 mmol/L (22-30); Chloride 99 mmol/L (98-107); Glucose 92 mg/dl (70-99); Potassium 3.6 mmol/L (3.5-5.1); Sodium 133 mmol/L (135-145); Total Protein 7.2 g/dl (6.3-8.2); eGFR > 60.00
--- NOTE | 2025-05-20 16:10 | HPS.HSE ---
Family Physician
-
Family Physician: Lauryn Mckinney MD
Chief Complaint
-
fall
History of Present Illness
89-year-old female with PMh for atrial fib, HTn, HLD presents via EMS from home where she fell. She was taking her trash out and lost the balance and fell on her left hip. she was not able to get up by herself. denied hitting her head on the
floor. patient stated spasms in her left LE with any movement. denied fever, chills, chest pain, sob. denied dizzy or syncope. denied abdominal pain, n,nv,d. denied dysuria or hematuria.
x ray with Fracture is identified of the left femoral neck, suboptimally profiled.
admitting for further management.
Medical History
Past Medical History
Past Medical History: Reports Other
Additional Past Medical History:
HTN, HLD, hypothyroidism, atrial fib
Past Surgical History: Reports Other
Additional Past Surgical History:
CABG
lumpectomy
appendectomy
Social History
Tobacco: Non-smoker
Alcohol: None
Drug: None
Family History
Family History: Not pertinent
Allergies / Home Medications
Allergies reflects when Allergies were last updated in [employer].
Home Medications with original date entered in [employer]
Allergy/Medication List:
Allergies
Allergy/AdvReac Type Severity Reaction Status Date / Time
No Known Allergies Allergy Unverified 08/16/16 12:27
Home Medications
acetaminophen 650 mg tablet,extended release 650 mg PO DAILY pain 11/18/23
calcium carbonate (Calcium 600) 1,200 mg PO DAILY Supplement 11/18/23
simvastatin 40 mg tablet (Zocor) 40 mg PO QPM High Cholesterol 11/18/23
therapeutic multivitamin 1 tab PO DAILY Supplement 11/18/23
acetaminophen 500 mg tablet (Tylenol Extra Strength) 1,000 mg (2 x 500 mg) PO TID Pain #30 tabs 11/26/23
apixaban 5 mg tablet (Eliquis) 5 mg PO BID #60 tabs 11/26/23
diltiazem HCl 180 mg capsule,extended release 24 hr 180 mg PO DAILY #30 caps 11/26/23
oxycodone 5 mg tablet 5 mg PO Q4HPRN PRN mod sev pain #15 tabs 11/26/23
polyethylene glycol 3350 17 gram oral powder packet (HealthyLax) 17 g PO DAILY #30 ea 11/26/23
valsartan 80 mg tablet 80 mg PO DAILY #30 tabs 11/26/23
Review of Systems
-
Constitutional: Reports No Symptoms
EENT: Reports No Symptoms
Respiratory: Reports No Symptoms
Cardiac: Reports No Symptoms
Abdomen/GI: Reports No Symptoms
: Reports No Symptoms
Musculoskeletal: Reports Other (left LE spasms)
Skin: Reports No Symptoms
Neurological: Reports No Symptoms
Endocrine: Reports No Symptoms
Hematologic/Lymphatic: Reports No Symptoms
Psych: Reports No Symptoms
Physical Exam
Vital Signs
Vital Signs
Temp Pulse Resp BP Pulse Ox
98.1 F 78 23 161/88 93
05/20/25 13:19 05/20/25 14:00 05/20/25 14:00 05/20/25 13:21 05/20/25 14:00
Physical Exam
General: Well Developed, Well Nourished and No Apparent Distress
HEENT: NormoCephalic, Moist mucous membranes and Atraumatic
Respiratory: Clear
Cardiac: S1/S2 and Regular Rhythm; No Murmur or Rub
GI: Soft, Non Tender, Non Distended and Normal Bowel Sounds; No Organomegaly
Rectal: Deferred by Provider
Musculoskeletal: No Clubbing, No Cyanosis and Other (Left lower extremity shortened and externally rotated.)
Skin: No Rash
Neuro: AO x 3 and Nonfocal/grossly intact
Psych: Calm
Laboratory Results
-
05/20/25 14:45
05/20/25 14:45
Laboratory Results
Total Bilirubin 0.7 mg/dl (0.2-1.3) 05/20/25 14:45
AST 41 U/L (14-36) H 05/20/25 14:45
ALT 41 U/L (0-35) H 05/20/25 14:45
Alkaline Phosphatase 44 U/L (38-126) 05/20/25 14:45
Data Reviewed
-
Diagnostic Radiology: Report Reviewed by me
CT Scan: Report Reviewed by me
Lab Data: Labs Reviewed by me
Impression/Plan
-
#left femoral neck fracture secondary to mechanical fall
-orthopedics consulted
-Tylenol, oxy and Dilaudid prn for pain
-Hip X ray with Fracture is identified of the left femoral neck, suboptimally profiled.Multiple fixation screws extend through the right femoral neck.
-head CT with No CT evidence for acute intracranial hemorrhage or transcortical infarct.
2. Mild to moderate white matter leukoaraiosis in the frontal and parietal lobes.
3. Moderate bilateral parietal lobe volume loss.
#chronic transaminitis
-ast 41,alt 41
-ctm
#paroxysmal atrial fibrillation
-obtain EKG
-hold eliquis
-Cardizem continued
#HTN�benign
-on valsartan
-hold hctz due to hyponatremia
#hyponatremia likely from HCTZ
-hold hctz
-BMP in am
#HLD
-Continue Zocor
#CAD/CABG x 1 vessel
-Follows at [place] [facility]
DVT prophylaxis-scd
DNR per patient
[2025-05-20] MEDS: VALIUM INJECTION 5 MG IV (17:00)
--- NOTE | 2025-05-20 17:05 | W.PN.UPDATE ---
Update Note
Progress Note Update
This is an addendum to H&P written by CABINET ASSEMBLER hannah Marques
I saw and examined the patient.
The CABINET ASSEMBLER's note was reviewed and I agree with the note.
Comment:
Mr. Tabatha Covarrubias is a 89 yo woman with hx atrial fibrillation on Eliquis, essential HTN, HLD, CAD s/p CABG presents to ER after a fall onto her left hip.
Triage VS significant for hypertension. Labs without leukocytosis, Na 133, CO2 31, BUN 20, Cr 0.6. AST 41, ALT 41.
On exam patient is AAO x 3, CV: S1, S2, RRR; chest clear; no LE swelling; LLE externally rotated
HEAD CT
IMPRESSION:
1. No CT evidence for acute intracranial hemorrhage or transcortical infarct.
2. Mild to moderate white matter leukoaraiosis in the frontal and parietal lobes.
3. Moderate bilateral parietal lobe volume loss.
Hip X-Ray
FINDINGS and IMPRESSION:
Fracture is identified of the left femoral neck, suboptimally profiled.
Multiple fixation screws extend through the right femoral neck.
Left Femoral Neck Fracture
-admit to med/surg
-Ortho aware of admission
-hold Eliquis
-SCD's
-pain control. patient mainly complaining of muscle spasm. s/p valium in ER, will trial Baclofen PRN. If that doesn't work can consider 10mg dose or switch to Valium. continue ice pack to left hip
Atrial Fibrillation on Eliquis
-hold Eliquis
-TRENCHER DRIVER diltiazem
Essential HTN
-hold TRENCHER DRIVER HCTZ
-TRENCHER DRIVER Valsartan
CAD s/p CABG
-TRENCHER DRIVER Statin
-Eliquis on hold pre-op
HLD - TRENCHER DRIVER Statin
Remainder of plan per CABINET ASSEMBLER's note
--- NOTE | 2025-05-20 17:19 | EDCM ---
CM reviewed chart and attempted to meet with pt bedside in ED but she was sleeping. Information obtained from chart review.
Pt lives alone, 2 story house, 2 FRITZ, has stair glide to second floor.
Independent in ADLs, personal care and ambulation at baseline. No DME.
[facility]
PCP: Lauryn Mckinney
Pharmacy: [facility] [address]
CM will continue to follow for all discharge planning needs.
[2025-05-20] MEDS: NSS 500 IV (17:32)
[2025-05-20 17:58] LABS: Magnesium 2.0 mg/dl (1.6-2.3)
[2025-05-20] MEDS: LIORESAL 10 MG PO (18:45)
--- NOTE | 2025-05-20 19:44 | PTCARENOTE ---
Pt received from ED to rm [id number]. Pt oriented to room and call de santiago.
[2025-05-20] MEDS: TYLENOL 650 MG PO ×2 (20:11→23:16)
[2025-05-20] MEDS: COLACE 100 MG PO (20:11)
[2025-05-20] MEDS: SENOKOT 17.2 MG PO (20:13)
[2025-05-20] MEDS: LIPITOR 20 MG PO (20:13)
[2025-05-21 03:12] VITALS: BP 114/71
[2025-05-21] MEDS: TYLENOL PO ×2 (05:49→12:54)
[2025-05-21 06:00] VITALS: BMI 26.2
[2025-05-21 07:00] VITALS: BP 137/77
--- NOTE | 2025-05-21 07:40 | W.PN.HOSP.TC ---
Today's Communication/Plan
-
hold eliquis
pain control
baclofen for spasm
ortho eval pending
Assessment / Plan
Assessment / Plan
Mr. Tabatha Covarrubias is a 89 yo woman with hx atrial fibrillation on Eliquis, essential HTN, HLD, CAD s/p CABG presents to ER after a fall onto her left hip.
HEAD CT
IMPRESSION:
1. No CT evidence for acute intracranial hemorrhage or transcortical infarct.
2. Mild to moderate white matter leukoaraiosis in the frontal and parietal lobes.
3. Moderate bilateral parietal lobe volume loss.
Hip X-Ray
FINDINGS and IMPRESSION:
Fracture is identified of the left femoral neck, suboptimally profiled.
Multiple fixation screws extend through the right femoral neck.
#Left Femoral Neck Fracture
-ortho eval pending
-hold Eliquis; since her last dose was yesterday and no plan for surgery as of now; will start the diet
-SCD's
-pain control. patient mainly complaining of muscle spasm. s/p valium in ER, will trial Baclofen PRN.
-continue ice pack to left hip
#Atrial Fibrillation on Eliquis
-hold Eliquis
- Continue with diltiazem
#Essential HTN
- Continue valsartan, hold HCTZ as this could be likely cause of mild hyponatremia; repeat lab with normal sodium
#CAD s/p CABG
-ZINC PLATER Statin
-Eliquis on hold pre-op
-Follows by [place] [facility]
#HLD
- Continue Zocor
Anticipated Discharge: > 48 hours
Subjective/Interval History
-
Date of Service: May 21, 2025
AFVSS. Reports ongoing left hip pain
Objective Data
-
Labs:
Laboratory Results
05/21/25
07:21
WBC Pending
Hgb Pending
Hct Pending
Plt Count Pending
Sodium Pending
Potassium Pending
Chloride Pending
Carbon Dioxide Pending
BUN Pending
Creatinine Pending
Glucose Pending
Calcium Pending
Vital Signs:
Vital Signs
Temp Pulse Resp BP Pulse Ox
97.6 F 76 16 114/71 96
05/21/25 03:12 05/21/25 03:12 05/21/25 03:12 05/21/25 03:12 05/21/25 03:12
I&O
05/20/25 05/21/25 05/22/25
06:59 06:59 06:59
Output Total 250 / 250
Balance -250 / -250
Review of Systems
-
History Source: Patient
Musculoskeletal: Reports Joint Pain, Muscle Pain, Muscle Stiffness and Other (Left hip)
Physical Exam
-
General: Comfortable and Conversant
Respiratory: Clear to Auscultation and Non Labored Respirations
Cardiac: Regular Rhythm and S1/S2
GI: Soft and Nontender
Musculoskeletal: Other (Patient with very limited range of movement of the left leg because of left hip pain)
Skin: Warm
Neuro: Awake, Alert and Oriented
Psych: Calm
Data Reviewed
-
Diagnostic Radiology: Report Reviewed by me, Discussed with Physician and Discussed with Patient
CT Scan: Report Reviewed by me
Labs: Labs Reviewed by me, Discussed with Physician and Discussed with Patient
[2025-05-21] MEDS: DIOVAN 80 MG PO (08:04)
[2025-05-21] MEDS: TYLENOL 650 MG PO ×3 (08:05→20:49)
[2025-05-21] MEDS: CARDIZEM CD 180 MG PO (08:05)
[2025-05-21] MEDS: ROXICODONE 5 MG PO ×3 (08:06→20:54)
[2025-05-21] MEDS: SENOKOT 17.2 MG PO ×2 (08:06→20:49)
[2025-05-21] MEDS: COLACE 100 MG PO ×2 (08:07→20:49)
[2025-05-21 08:53] LABS: Hematocrit 37.9 % (37.0-47.0); Hemoglobin 13.0 g/dL (12.0-16.0); Mean Corp Hgb Conc. 34.3 g/dL (33.0-37.0); Mean Corpuscular Volume 92.4 fL (81.0-99.0); Platelet Count 140 10^3/uL (130-400); Red Cell Dist. Width 13.7 % (11.5-14.5)
[2025-05-21 08:58] LABS: Blood Urea Nitrogen 17 mg/dl (7-17); Calcium 8.9 mg/dl (8.4-10.2); Carbon Dioxide 32 mmol/L (22-30); Chloride 101 mmol/L (98-107); Estimated Creatinine Clearance 61 ml/min; Glucose 101 mg/dl (70-99); Magnesium 1.8 mg/dl (1.6-2.3); Potassium 3.7 mmol/L (3.5-5.1); Sodium 136 mmol/L (135-145); eGFR > 60.00
[2025-05-21] MEDS: LIORESAL 5 MG PO (10:27)
[2025-05-21 11:00] VITALS: BP 124/67
--- NOTE | 2025-05-21 13:41 | CM ---
restaurant hourly manager reviewed patient's chart and met with patient and patient was admitted with a fx, patient reports that her daughter is coming tomorrow and she will stay with patient at home when stable for discharge, patient declines skilled placement,
wants home at discharge and is agreeable to visiting nurses, [facility] liaison contacted.
Plan; Home with [facility] when stable.
--- NOTE | 2025-05-21 14:14 | VNURNOTE ---
Home Health Liaison met with patient at bedside to discuss [facility] nurse/therapy, visits, schedule and homebound status. Patient is agreeable and understands that visits at home will be 2-3 x per week to assess and teach medical management. Patient
is aware that [facility] will contact them for start of care within a few days after discharge from . Provided contact number for [facility]. Inquired about DME in the home. She stated she has a stair glide, rolling walker, rollator walker. Liaison
offered to arrange hospital bed and /or wheelchair. Patient declined.
[facility] referral completed in [facility].
[2025-05-21 15:00] VITALS: BP 132/74
--- NOTE | 2025-05-21 15:40 | CON.ORTHO ---
Consultation
-
Date/Time Consultation Performed: 05/21/25 330 pm
Consultation - Orthopedics
History
HPI: 89-year-old female presented to the emergency department status post fall complains of left hip pain. She was subsequently diagnosed with a displaced left femoral neck fracture admitted to the hospital service. Orthopedics is consulted. This
afternoon patient reports that she was in her driveway yesterday when she lost her balance and tripped and fell onto her left hip. She localizes pain to the left hip and groin region. Pain is made worse with attempted ambulation and motion of the
left hip. Of note she does have a history of right impacted femoral neck fracture and right distal radius fracture treated surgically last year. She is quite active independent. She does take Eliquis at baseline. She reports that her last dose
was yesterday.
Allergies / Home Medications
Past medical history: Hypertension, hyperlipidemia, A-fib
Past surgical history: CABG, lumpectomy, appendectomy, right cannulated screws, open reduction term fixation right distal radius fracture
Social history: Lives at home, non-smoker
Family history: Not pertinent
Allergy/AdvReac Type Severity Reaction Status Date / Time
No Known Allergies Allergy Unverified 08/16/16 12:27
�Medication �Instructions �Recorded
calcium carbonate (Calcium 600) 1,200 mg PO DAILY Supplement 11/18/23
simvastatin 40 mg tablet (Zocor) 40 mg PO QPM High Cholesterol 11/18/23
therapeutic multivitamin 1 tab PO DAILY Supplement 11/18/23
apixaban 5 mg tablet (Eliquis) 5 mg PO BID #60 tabs 11/26/23
diltiazem HCl 180 mg 180 mg PO DAILY #30 caps 11/26/23
capsule,extended release 24 hr
hydrochlorothiazide 25 mg tablet 25 mg PO DAILY Fluid 05/20/25
Retention/Swelling
nitroglycerin 0.4 mg sublingual 0.4 mg sublingual Q5M PRN chest 05/20/25
tablet pain
valsartan 80 mg tablet 80 mg PO QPM Blood Pressure 05/20/25
Vital Signs / Lab Results
Temp Pulse Resp BP Pulse Ox
97.6 F 96 18 124/67 98
05/21/25 11:00 05/21/25 11:00 05/21/25 11:00 05/21/25 11:00 05/21/25 11:00
05/21/25 07:21
05/21/25 07:21
10 point review systems reviewed and negative unless otherwise stated
General: Pleasant, no acute distress
Musculoskeletal left lower extremity
Skin intact, no erythema or ecchymotic staining
Extremity shortened externally rotated
Tenderness palpation of her hip and groin
Positive EHL, FHL, ankle dorsiflexion, plantarflexion
Brisk cap refill
No other areas of bony tenderness palpation or crepitation along bones or joints on tertiary exam
Diagnostic studies
X-rays left hip reveal displaced left femoral neck fracture
Assessment / Plan
89-year-old female on Eliquis status post fall with displaced left femoral neck fracture. We discussed diagnosis and treatment options at length. We discussed postsurgical nonsurgical options. After discussion mutually like to proceed with
surgical intervention. We discussed risks benefits and alternatives to surgery. Discussed the usual expected perioperative postoperative course. No guarantees were given. After discussion consent was obtained for left hip hemiarthroplasty. Will
plan to obtain written informed consent prior to procedure. Plan for OR Saturday given recent Eliquis will require washout.
Nonweightbearing left lower extremity
Pain control
Hold Eliquis
Hold anticoagulation Saturday in preparation for OR Saturday
N.p.o. Saturday in preparation for OR Saturday
Medical management per primary team
Plan: 2 OR Thursday 05/24 for left hip hemiarthroplasty pending OR availability medical clearance
[2025-05-21] MEDS: DILAUDID 0.5 MG IV (16:53)
[2025-05-21] MEDS: LIPITOR 20 MG PO (16:55)
[2025-05-21 19:39] VITALS: BP 118/72
[2025-05-21 23:30] VITALS: BP 147/77
[2025-05-22] MEDS: TYLENOL PO (00:13)
[2025-05-22] MEDS: ROXICODONE 5 MG PO ×2 (03:12→09:49)
[2025-05-22] MEDS: TYLENOL 650 MG PO ×5 (03:12→20:16)
[2025-05-22 03:25] VITALS: BP 144/86
[2025-05-22 06:00] VITALS: BMI 26.0
[2025-05-22 07:00] VITALS: BP 150/79
[2025-05-22 09:00] LABS: Hematocrit 40.3 % (37.0-47.0); Hemoglobin 13.7 g/dL (12.0-16.0); Mean Corp Hgb Conc. 34.0 g/dL (33.0-37.0); Mean Corpuscular Volume 92.0 fL (81.0-99.0); Platelet Count 125 10^3/uL (130-400); Red Cell Dist. Width 13.5 % (11.5-14.5)
[2025-05-22 09:26] LABS: Blood Urea Nitrogen 13 mg/dl (7-17); Calcium 8.5 mg/dl (8.4-10.2); Carbon Dioxide 31 mmol/L (22-30); Chloride 99 mmol/L (98-107); Estimated Creatinine Clearance 61 ml/min; Glucose 92 mg/dl (70-99); Potassium 4.2 mmol/L (3.5-5.1); Sodium 135 mmol/L (135-145); eGFR > 60.00
[2025-05-22] MEDS: CARDIZEM CD 180 MG PO (09:40)
[2025-05-22] MEDS: SENOKOT 17.2 MG PO ×2 (09:43→20:16)
[2025-05-22] MEDS: COLACE 100 MG PO ×2 (09:44→20:16)
[2025-05-22] MEDS: DIOVAN 80 MG PO (09:44)
[2025-05-22 11:00] VITALS: BP 132/83
[2025-05-22] MEDS: DILAUDID 0.5 MG IV ×2 (12:08→18:29)
--- NOTE | 2025-05-22 12:55 | W.PN.HOSP.TC ---
Today's Communication/Plan
-
Assessment / Plan
Assessment / Plan
General: No Apparent Distress, Comfortable and Conversant
HEENT: NormoCephalic, Moist mucous membranes, Atraumatic
Respiratory: Clear and Non Labored Respirations
Cardiac: irregular rhythm; heart rate around 90
GI: Soft, normal bowel sounds
Musculoskeletal: No Edema, left hip TTP
Skin: Warm and dry
: No [place]
Neuro: Awake, Alert, Nonfocal/grossly intact
Psych: Calm and cooperative
Left hip fracture:
- Fractured hip after mechanical fall
- Holding Eliquis for planned OR on Thursday 05/24
- Pain control as needed
- Acceptable risk planned surgery, revised cardiac risk index score of 1 correlates with a 1.1% risk of major cardiac event in the perioperative period, proBNP greater than 300 so we will monitor EKG and troponins postoperatively
- PT/OT postoperatively
Hyponatremia:
- Mild, now resolved
- Continue holding home HCTZ
- Will monitor
A-fib:
- Continue rate control with diltiazem 100 mg p.o. daily
- Holding anticoagulation for the OR
Hypertension:
- Continue home valsartan 80 mg daily
- Holding home HCTZ as it may have been contributing to her mild hyponatremia
- Blood pressure currently well-controlled, will monitor
CAD:
- Currently stable, history of CABG
- Continue statin
- Follows with [facility] as outpatient
DVT prophylaxis: SCDs
CODE STATUS: DNR
Anticipated Discharge: > 48 hours
Subjective/Interval History
-
Date of Service: May 22, 2025
Patient was seen and examined at bedside this morning. Ongoing left hip pain. Holding Eliquis for planned OR on Saturday.
Objective Data
-
Labs:
Laboratory Results
05/22/25
07:17
WBC 8.3
Hgb 13.7
Hct 40.3
Plt Count 125 L
Sodium 135
Potassium 4.2
Chloride 99
Carbon Dioxide 31 H
BUN 13
Creatinine 0.6
Glucose 92
Calcium 8.5
Vital Signs:
Vital Signs
Temp Pulse Resp BP Pulse Ox
99.1 F 123 16 132/83 96
05/22/25 11:00 05/22/25 11:00 05/22/25 11:00 05/22/25 11:00 05/22/25 11:00
I&O
05/21/25 05/22/25 05/23/25
06:59 06:59 06:59
Intake Total 960 / 960
Output Total 1050 / 1400 350 / 350
Balance -90 / -440 -350 / -350
Review of Systems
-
History Source: Patient
All other systems: Reviewed and negative
Musculoskeletal: Reports Joint Pain (Left hip pain)
Physical Exam
-
General: No Apparent Distress
[2025-05-22 15:00] VITALS: BP 140/84
[2025-05-22] MEDS: LIPITOR 20 MG PO (18:30)
[2025-05-22 19:49] VITALS: BP 125/82
[2025-05-22 23:47] VITALS: BP 126/81
[2025-05-23] VITALS (7 sets, daily range): BP systolic 110–155; BP diastolic 65–90
[2025-05-23] MEDS: TYLENOL PO (01:03)
[2025-05-23] MEDS: TYLENOL 650 MG PO ×5 (03:24→20:44)
[2025-05-23] MEDS: DILAUDID 0.5 MG IV (03:25)
[2025-05-23 07:38] LABS: Hematocrit 38.1 % (37.0-47.0); Hemoglobin 13.4 g/dL (12.0-16.0); Mean Corp Hgb Conc. 35.2 g/dL (33.0-37.0); Mean Corpuscular Volume 91.8 fL (81.0-99.0); Nucleated Red Blood Cells % 0 %; Platelet Count 126 10^3/uL (130-400); Red Cell Dist. Width 13.2 % (11.5-14.5)
[2025-05-23 07:41] LABS: INR 1.22; PT 15.7 Sec (11.4-14.6)
[2025-05-23 07:42] LABS: APTT 40.7 Sec (23.4-35.0)
[2025-05-23 07:57] LABS: Blood Urea Nitrogen 14 mg/dl (7-17); Calcium 8.5 mg/dl (8.4-10.2); Carbon Dioxide 29 mmol/L (22-30); Chloride 101 mmol/L (98-107); Estimated Creatinine Clearance 61 ml/min; Glucose 93 mg/dl (70-99); Potassium 3.9 mmol/L (3.5-5.1); Sodium 131 mmol/L (135-145); eGFR > 60.00
[2025-05-23] MEDS: ROXICODONE 5 MG PO (08:38)
[2025-05-23] MEDS: DIOVAN 80 MG PO (08:39)
[2025-05-23] MEDS: SENOKOT 17.2 MG PO ×2 (08:40→20:44)
[2025-05-23] MEDS: COLACE 100 MG PO ×2 (08:40→20:44)
[2025-05-23] MEDS: CARDIZEM CD 180 MG PO (08:42)
[2025-05-23] MEDS: DILAUDID 1 MG IV ×2 (11:25→22:25)
--- NOTE | 2025-05-23 14:11 | W.PN.HOSP.TC ---
Today's Communication/Plan
-
Assessment / Plan
Assessment / Plan
General: No Apparent Distress, Comfortable and Conversant
HEENT: NormoCephalic, Moist mucous membranes, Atraumatic
Respiratory: Clear and Non Labored Respirations
Cardiac: irregular rhythm; heart rate around 90
GI: Soft, normal bowel sounds
Musculoskeletal: No Edema, left hip TTP
Skin: Warm and dry
: No Pisano
Neuro: Awake, Alert, Nonfocal/grossly intact
Psych: Calm and cooperative
Left hip fracture:
- Fractured hip after mechanical fall
- Holding Eliquis for planned OR on Thursday 05/24, on IV heparin
- Pain control as needed
- Acceptable risk planned surgery, revised cardiac risk index score of 1 correlates with a 1.1% risk of major cardiac event in the perioperative period, proBNP greater than 300 so we will monitor EKG and troponins postoperatively
- PT/OT postoperatively
Hyponatremia:
- Mild
- Continue holding home HCTZ
- Will monitor
A-fib:
- Continue rate control with diltiazem 100 mg p.o. daily
- Holding Eliquis for the OR, anticoagulate with IV heparin perioperatively
Hypertension:
- Continue home valsartan 80 mg daily
- Holding home HCTZ as it may have been contributing to her mild hyponatremia
- Blood pressure currently well-controlled, will monitor
CAD:
- Currently stable, history of CABG
- Continue statin
- Follows with [facility]ology as outpatient
DVT prophylaxis: IV heparin while off Eliquis perioperatively
CODE STATUS: DNR
Anticipated Discharge: > 48 hours
Subjective/Interval History
-
Date of Service: May 23, 2025
Patient was seen and examined bedside this morning. Still having significant left hip pain. Plan for OR tomorrow.
Objective Data
-
Labs:
Laboratory Results
05/23/25
06:52
WBC 8.2
Hgb 13.4
Hct 38.1
Plt Count 126 L
PT 15.7 H
INR 1.22
APTT 40.7 H
Sodium 131 L
Potassium 3.9
Chloride 101
Carbon Dioxide 29
BUN 14
Creatinine 0.6
Glucose 93
Calcium 8.5
Vital Signs:
Vital Signs
Temp Pulse Resp BP Pulse Ox
98.7 F 100 16 144/76 92
05/23/25 11:00 05/23/25 11:00 05/23/25 11:00 05/23/25 11:00 05/23/25 11:00
I&O
05/22/25 05/23/25 05/24/25
06:59 06:59 06:59
Intake Total 960 / 960 660 / 660
Output Total 1050 / 1400 800 / 800
Balance -90 / -440 -140 / -140
Review of Systems
-
History Source: Patient
All other systems: Reviewed and negative
Musculoskeletal: Reports Joint Swelling (Left lateral hip pain)
Physical Exam
-
General: No Apparent Distress
[2025-05-23 15:06] LABS: APTT 37.0 Sec (23.4-35.0)
[2025-05-23] MEDS: HEPARIN 25000 UNITS/250 ML IV (15:30)
[2025-05-23] MEDS: LIPITOR 20 MG PO (17:58)
[2025-05-23 22:03] LABS: APTT 51.5 Sec (23.4-35.0)
[2025-05-24] VITALS (16 sets, daily range): BP systolic 115–152; BP diastolic 71–102; BMI 26.3
[2025-05-24] MEDS: TYLENOL 650 MG PO ×4 (00:52→21:45)
[2025-05-24] MEDS: TYLENOL PO ×2 (04:46→13:41)
[2025-05-24] MEDS: DILAUDID 1 MG IV ×3 (04:49→15:11)
--- NOTE | 2025-05-24 05:03 | PTCARENOTE ---
Pt heparin gtt stopped at 0420 05/24 per order. Verified with TIN POT OPERATOR who verified with pharmacy. Pt has OR pending.
[2025-05-24 06:41] LABS: Hematocrit 38.8 % (37.0-47.0); Hemoglobin 13.4 g/dL (12.0-16.0); Mean Corp Hgb Conc. 34.5 g/dL (33.0-37.0); Mean Corpuscular Volume 90.9 fL (81.0-99.0); Nucleated Red Blood Cells % 0 %; Platelet Count 141 10^3/uL (130-400); Red Cell Dist. Width 13.1 % (11.5-14.5)
[2025-05-24 06:48] LABS: APTT 38.2 Sec (23.4-35.0)
[2025-05-24 06:56] LABS: Blood Urea Nitrogen 13 mg/dl (7-17); Calcium 8.3 mg/dl (8.4-10.2); Carbon Dioxide 31 mmol/L (22-30); Chloride 99 mmol/L (98-107); Estimated Creatinine Clearance 61 ml/min; Glucose 99 mg/dl (70-99); Potassium 4.0 mmol/L (3.5-5.1); Sodium 133 mmol/L (135-145); eGFR > 60.00
[2025-05-24] MEDS: DIOVAN 80 MG PO (08:57)
[2025-05-24] MEDS: SENOKOT 17.2 MG PO ×2 (08:57→21:45)
[2025-05-24] MEDS: COLACE 100 MG PO ×2 (08:57→21:46)
[2025-05-24] MEDS: CARDIZEM CD 180 MG PO (08:57)
--- NOTE | 2025-05-24 10:26 | W.PN.HOSP.TC ---
Today's Communication/Plan
-
NPO for OR
Assessment / Plan
Assessment / Plan
General: No Apparent Distress, Comfortable and Conversant
HEENT: NormoCephalic, Moist mucous membranes, Atraumatic
Respiratory: Clear and Non Labored Respirations
Cardiac: irregular rhythm; heart rate around 90
GI: Soft, normal bowel sounds
Musculoskeletal: No Edema, left hip TTP
Skin: Warm and dry
: No Pisano
Neuro: Awake, Alert, Nonfocal/grossly intact
Psych: Calm and cooperative
Left hip fracture:
- Fractured hip after mechanical fall
- Holding Eliquis for planned OR on Thursday 05/24, on IV heparin
- Pain control as needed
- Acceptable risk planned surgery, revised cardiac risk index score of 1 correlates with a 1.1% risk of major cardiac event in the perioperative period, proBNP greater than 300 so we will monitor EKG and troponins postoperatively
- PT/OT postoperatively
Hyponatremia:
- Mild
- Continue holding home HCTZ
- Will monitor
A-fib:
- Continue rate control with diltiazem 100 mg p.o. daily
- CHADS2-Vasc score = 4; IV heparin gtt on hold; resume IT SUPPORT MANAGER Eliquis post-op when OK with ortho
Hypertension:
- Continue home valsartan 80 mg daily
- Holding home HCTZ as it may have been contributing to her mild hyponatremia
- Blood pressure currently well-controlled, will monitor
CAD:
- Currently stable, history of CABG
- Continue statin
- Follows with [facility] as outpatient
DVT prophylaxis: SCD
CODE STATUS: DNR
Anticipated Discharge: 24 - 48 hours
Subjective/Interval History
-
Date of Service: May 24, 2025
waiting for surgery. pain controlled with medications
no chest pain or shortness of breath
Objective Data
-
Labs:
Laboratory Results
05/24/25
05:59
WBC 7.0
Hgb 13.4
Hct 38.8
Plt Count 141
APTT 38.2 H
Sodium 133 L
Potassium 4.0
Chloride 99
Carbon Dioxide 31 H
BUN 13
Creatinine 0.5 L
Glucose 99
Calcium 8.3 L
Vital Signs:
Vital Signs
Temp Pulse Resp BP Pulse Ox
98.4 F 95 18 129/71 94
05/24/25 08:00 05/24/25 08:00 05/24/25 08:00 05/24/25 08:00 05/24/25 08:00
I&O
05/23/25 05/24/25 05/25/25
06:59 06:59 06:59
Intake Total 660 / 660 960 / 960
Output Total 800 / 800 300 / 300
Balance -140 / -140 660 / 660
Review of Systems
-
History Source: Patient
All other systems: Reviewed and negative
Physical Exam
-
General: No Apparent Distress
HEENT: PERRLA
Respiratory: Clear to Auscultation; Negative Wheezes
Cardiac: Regular Rhythm and S1/S2
GI: Soft and Nontender
Musculoskeletal: No Edema
Skin: Warm and Dry; Negative Rash
Neuro: AO x 3
Psych: Calm
Data Reviewed
-
Diagnostic Radiology: Report Reviewed by me
Labs: Labs Reviewed by me
[2025-05-24] MEDS: D5LR 500 IV (11:29)
--- NOTE | 2025-05-24 11:34 | CM ---
Chart reviewed and patient would benefit from PT/OT evaluations, plan is for patient to return to home patient's daughter to stay with her along with [facility] at discharge.
Plan; Home with [facility].
--- NOTE | 2025-05-24 19:00 | OR.RPT ---
Operative Report
Operative Report
Date
05/24/2025
Anesthesia Type:
General
Operative Indications:
Displaced left femoral neck fracture
Operative Findings :
Same
Complications:
None
Implants:
Nohemy Heritage cemented hip hemiarthroplasty, size 13 femoral stem, 48 mm bipolar shell, 28+7 right head
Procedure and Technique:
Cemented left hip hemiarthroplasty
INDICATIONS FOR PROCEDURE:
Patient is an active 89-year-old female sustained mechanical fall onto her left hip. She was subsequently diagnosed with a left femoral neck fracture. We discussed postsurgical nonsurgical options. Patient elected proceed with surgical
intervention. Discussed risks benefits and alternatives of surgery. Discussed the usual and expected perioperative and postoperative course. No guarantees were given. After discussion written informed consent was obtained.
OPERATIVE PROCEDURE:
Patient was seen and identified in the preoperative holding area. Operative extremity was marked. Patient was taken to the operating room and anesthesia was administered by the anesthesia providers. Patient was then placed in a lateral decubitus
position with the use of a hoff bag. All bony prominences were well-padded. Operative extremity was then prepped and draped in normal sterile fashion. Timeout was performed again identifying the correct operative extremity. Preoperative
antibiotics were addressed. Standard posterior approach to the hip was taken. Sharp dissection was carried through skin and subcutaneous tissues and deep fascial layer. Hemostasis was achieved with electrocautery. Hip was then placed on slight
internal rotation to place the external rotators on stretch. Piriformis was identified and a Cobra retractor was then placed under the gluteus medius and minimus. Piriformis and short external rotators were taken down and tagged. A T capsulotomy
was then performed and capsular leaflets were also tagged. The fracture was identified and a freshen up cut was performed. The femoral head was then removed and sized. Appropriately sized ball on a stick was then placed into the acetabulum and
felt to have appropriate suction fit. Attention was then turned to the proximal femur where soft tissue remnants were removed from the piriformis fossa. Remnant neck was removed with the use of a cookie cutter. Canal finder was then placed in
addition to lateralizing reamer. Stepwise broaching was then performed to the appropriate size. Implants were then trialed and found to have appropriate stability in deep flexion, internal rotation, shuck and adduction. Implants were then removed
and canal was copiously irrigated normal saline solution. Cement restrictor was then placed. Pressurized cement was then placed into the femoral canal and appropriately sized femoral stem was then placed in the appropriate version. After cement
had hardened, final implants were then placed and the hip was again taken through range of motion and found to be quite stable. Satisfied with the extent of surgery, wound was copiously irrigated with normal saline solution and a Betadine solution.
The capsule, piriformis and short external rotators were then repaired through osseous tunnels into the greater trochanter. Wound was then closed in a layered fashion utilizing #1 strata fix for deep fascial layer, 2-0 Vicryl for subcutaneous
layer and jose for skin. Aquacel dressing was then placed. Anesthesia was reversed and patient was taken to PACU in a stable condition. Postoperative plans will include weightbearing to the patient's tolerance in the operative extremity.
Posterior hip precautions will be advised. Recommend DVT prophylaxis consisting of renally dosed Lovenox daily for 28 days unless patient is already on baseline anticoagulation. Will plan to see patient back in 2 weeks for postoperative evaluation
with planned removal of jose.
Disposition:
PACU, stable condition
[2025-05-24] MEDS: LOPRESSOR 5 MG IV (20:57)
[2025-05-24] MEDS: LIPITOR 20 MG PO (21:46)
[2025-05-24] MEDS: NSS 1000 IV (21:46)
[2025-05-25] VITALS (9 sets, daily range): BP systolic 90–134; BP diastolic 53–85; PULSE 106–132; O2SAT 97; BMI 26.3; BMI 26.9
[2025-05-25] MEDS: D5LR IV ×3 (00:22→05:10)
[2025-05-25] MEDS: TYLENOL PO ×2 (01:05→04:52)
[2025-05-25] MEDS: ANCEF 5 IV ×2 (02:00→09:19)
--- NOTE | 2025-05-25 02:54 | PTCARENOTE ---
Pt. agreeable to get OOB to void on bed side commode with assist x2. However pt. profoundly weak, unable to bear full weight or stand upright despite heavy assistance. Pt. assisted back into bed without incident.
[2025-05-25] MEDS: DILAUDID 1 MG IV (03:07)
[2025-05-25 06:34] LABS: Hematocrit 39.5 % (37.0-47.0); Hemoglobin 13.6 g/dL (12.0-16.0); Mean Corp Hgb Conc. 34.4 g/dL (33.0-37.0); Mean Corpuscular Volume 90.6 fL (81.0-99.0); Nucleated Red Blood Cells % 0 %; Platelet Count 157 10^3/uL (130-400); Red Cell Dist. Width 12.9 % (11.5-14.5)
[2025-05-25 07:17] LABS: Blood Urea Nitrogen 16 mg/dl (7-17); Calcium 8.3 mg/dl (8.4-10.2); Carbon Dioxide 28 mmol/L (22-30); Chloride 102 mmol/L (98-107); Estimated Creatinine Clearance 61 ml/min; Glucose 135 mg/dl (70-99); Potassium 4.7 mmol/L (3.5-5.1); Sodium 132 mmol/L (135-145); eGFR > 60.00
[2025-05-25] MEDS: NSS 1000 IV (07:37)
[2025-05-25] MEDS: CARDIZEM CD 180 MG PO (08:16)
[2025-05-25] MEDS: ELIQUIS 5 MG PO ×2 (08:17→20:13)
[2025-05-25] MEDS: COLACE 100 MG PO ×2 (08:17→20:13)
[2025-05-25] MEDS: SENOKOT 17.2 MG PO ×2 (08:17→20:14)
[2025-05-25] MEDS: TYLENOL 650 MG PO ×2 (08:17→11:24)
[2025-05-25] MEDS: DIOVAN 80 MG PO (08:17)
--- NOTE | 2025-05-25 08:32 | W.PN.HOSP.TC ---
Today's Communication/Plan
-
Pain control
PT/OT
Appreciate Ortho
Lasix 20mg IV x 1, monitor output and try to wean off oxygen today
Assessment / Plan
Assessment / Plan
Left hip fracture:
- Fractured hip after mechanical fall
- s/p Cemented left hip hemiarthroplasty on 05/24
- Pain control
- PT/OT
- PEANUT SEPARATOR Eliquis resumed for DVT PPx
- appreciate Ortho
Iatrogenic Volume Overload
Hypoxic Respiratory Insufficiency
-patient on 3-4L overnight with obvious JVP on exam
-Lasix 20mg IV x 1
-obtain CXR and BNP
Hyponatremia:
- Mild
- Continue holding home HCTZ
- Will monitor
A-fib:
- Continue rate control with diltiazem 100 mg p.o. daily
- CHADS2-Vasc score = 4; PEANUT SEPARATOR Eliquis resumed
Hypertension:
- Continue home valsartan 80 mg daily
- Holding home HCTZ as it may have been contributing to her mild hyponatremia
- Blood pressure currently well-controlled, will monitor
CAD:
- Currently stable, history of CABG
- Continue statin
- Follows with [facility] as outpatient
DVT prophylaxis: Eliquis
CODE STATUS: DNR
51 minutes spent on patient care
Anticipated Discharge: 24 - 48 hours
Subjective/Interval History
-
Date of Service: May 25, 2025
pain is better and muscle spasms gone
she is very weak per RN
Objective Data
-
Labs:
Laboratory Results
05/25/25
05:22
WBC 7.7
Hgb 13.6
Hct 39.5
Plt Count 157
Sodium 132 L
Potassium 4.7
Chloride 102
Carbon Dioxide 28
BUN 16
Creatinine 0.5 L
Glucose 135 H
Calcium 8.3 L
Vital Signs:
Vital Signs
Temp Pulse Resp BP Pulse Ox
97.5 F 104 18 133/82 97
05/25/25 07:20 05/25/25 07:20 05/25/25 07:20 05/25/25 08:16 05/25/25 07:20
I&O
05/24/25 05/25/25 05/26/25
06:59 06:59 06:59
Intake Total 960 / 960 1477 / 1477
Output Total 300 / 300 225 / 225
Balance 660 / 660 1252 / 1252
Review of Systems
-
History Source: Patient
All other systems: Reviewed and negative
Physical Exam
-
General: No Apparent Distress
HEENT: PERRLA
Respiratory: Clear to Auscultation; Negative Wheezes
Cardiac: Regular Rhythm, S1/S2 and JVD
GI: Soft and Nontender
Musculoskeletal: No Edema
Skin: Warm and Dry; Negative Rash
Neuro: AO x 3
Psych: Calm
Data Reviewed
-
Diagnostic Radiology: Report Reviewed by me
Labs: Labs Reviewed by me
[2025-05-25] MEDS: ROXICODONE 10 MG PO (09:19)
[2025-05-25] MEDS: LASIX 20 MG IV (09:22)
--- NOTE | 2025-05-25 11:51 | CM ---
Patient seen at bedside with therapy and patient daughter also present. Patient indicated again she will not go to SNF. Daughter coming to stay with patient and patient requesting [facility] for follow up. Patient daughter confirmed above information.
Pending pt/ot assessment. CM will continue to follow for discharge planning needs.
Plan; home with [facility] to follow
--- NOTE | 2025-05-25 13:08 | PTCARENOTE ---
pt HR elevated 110-120, higher with activity- known afib. check EKG. pt given IV lasix, no output- bladder scan >900 OOB to commode, voided large amount. pct emptied commode without measuring output will repeat bladder scan
--- NOTE | 2025-05-25 16:02 | PTCARENOTE ---
BP soft while OOB, asymptomatic- assisted back to bed, improvement noted 111/63,
[2025-05-25] MEDS: LIPITOR 20 MG PO (17:07)
--- NOTE | 2025-05-25 18:24 | W.PN.ORTHO ---
Today's Communication / Plan
-
89-year-old female postop day 1 status post left hip hemiarthroplasty doing well
Weightbearing as tolerated left lower extremity
PT OT
Pain control
DVT prophylaxis: Eliquis 5 mg twice daily per her baseline
Posterior hip precautions
Medical management per primary team
Plan to follow-up outpatient with myself in 2 to 3 weeks repeat clinical assessment plan removal of jose
Subjective
.
.:
Patient resting comfortably in bed this evening. Daughter at bedside. She reports that pain in her hip is actually much improved compared to preop.
Vital Signs and Labs
.
Vital Signs and Labs:
Lab Results
05/25/25 05:22
05/25/25 05:22
Temp Pulse Resp BP Pulse Ox
98.2 F 110 18 111/63 96
05/25/25 15:05 05/25/25 15:05 05/25/25 15:05 05/25/25 15:09 05/25/25 15:05
PT 15.7 Sec (11.4-14.6) H 05/23/25 06:52
INR 1.22 05/23/25 06:52
Physical Exam
-
Musculoskeletal left lower extremity
Dressing without drainage
Moderate swelling thigh
Positive EHL, FHL, ankle dorsiflexion, plantarflexion
Brisk cap refill
Approximately equal leg lengths clinically
[2025-05-25] MEDS: TYLENOL 1000 MG PO (20:13)
[2025-05-25] MEDS: CHLORASEPTIC/SORE THROAT SPRAY 1 SPRAY PO (20:17)
[2025-05-26] VITALS (9 sets, daily range): BP systolic 100–138; BP diastolic 59–73; PULSE 78–128; O2SAT 96; BMI 26.1
--- NOTE | 2025-05-26 01:10 | PTCARENOTE ---
Pt heart rate elevated to 140s with activity when OOB to bedside commode. HR at baseline in the 80s when patient was back in bed.
[2025-05-26] MEDS: TYLENOL 1000 MG PO ×3 (02:05→21:50)
[2025-05-26 06:30] LABS: Hematocrit 37.9 % (37.0-47.0); Hemoglobin 12.7 g/dL (12.0-16.0); Mean Corp Hgb Conc. 33.5 g/dL (33.0-37.0); Mean Corpuscular Volume 93.6 fL (81.0-99.0); Platelet Count 175 10^3/uL (130-400); Red Cell Dist. Width 13.2 % (11.5-14.5)
[2025-05-26 07:00] LABS: Blood Urea Nitrogen 24 mg/dl (7-17); Calcium 8.8 mg/dl (8.4-10.2); Carbon Dioxide 31 mmol/L (22-30); Chloride 98 mmol/L (98-107); Estimated Creatinine Clearance 52 ml/min; Glucose 105 mg/dl (70-99); Magnesium 2.2 mg/dl (1.6-2.3); Sodium 131 mmol/L (135-145); eGFR > 60.00
[2025-05-26 07:08] LABS: Potassium 4.3 mmol/L (3.5-5.1)
--- NOTE | 2025-05-26 08:13 | W.PN.HOSP.TC ---
Today's Communication/Plan
-
follow up PT Eval and recs with daughter
Assessment / Plan
Assessment / Plan
Left hip fracture post mechanical fall
- s/p Cemented left hip hemiarthroplasty on 05/24
- Pain control
- PT/OT --> SNF recommended but patient resistant. Daughter to be in today to observe therapy session. Patient educated this morning that rehab may be the best option for everyone's safety
- INTERNET MARKETER Eliquis resumed for DVT PPx
- appreciate Ortho
Iatrogenic Volume Overload
Hypoxic Respiratory Insufficiency
-patient on 3-4L overnight with obvious JVP on exam
-s/p Lasix x 1 on 05/25 - now on RA; BP stable
Hyponatremia:
- Mild
- Continue holding home HCTZ
- Will monitor
A-fib:
- Continue rate control with diltiazem 100 mg p.o. daily
- CHADS2-Vasc score = 4; INTERNET MARKETER Eliquis resumed
Hypertension:
- Continue home valsartan 80 mg daily
- Holding home HCTZ as it may have been contributing to her mild hyponatremia
- Blood pressure currently well-controlled, will monitor
CAD:
- Currently stable, history of CABG
- Continue statin
- Follows with [facility] as outpatient
DVT prophylaxis: Eliquis
CODE STATUS: DNR
51 minutes spent on patient care
Anticipated Discharge: Within 24 hours
Subjective/Interval History
-
Date of Service: May 26, 2025
she is off oxygen
no chest pain
feeling okay
Objective Data
-
Labs:
Laboratory Results
05/26/25
05:37
WBC 9.7
Hgb 12.7
Hct 37.9
Plt Count 175
Sodium 131 L
Potassium 4.3
Chloride 98
Carbon Dioxide 31 H
BUN 24 H
Creatinine 0.7
Glucose 105 H
Calcium 8.8
Vital Signs:
Vital Signs
Temp Pulse Resp BP Pulse Ox
98.7 F 90 16 110/63 93
05/26/25 03:05 05/26/25 03:05 05/26/25 03:05 05/26/25 03:05 05/26/25 03:05
I&O
05/25/25 05/26/25 05/27/25
06:59 06:59 06:59
Intake Total 1477 / 1477 480 / 480
Output Total 225 / 225
Balance 1252 / 1252 480 / 480
Review of Systems
-
History Source: Patient
All other systems: Reviewed and negative
Physical Exam
-
General: No Apparent Distress
HEENT: PERRLA
Respiratory: Clear to Auscultation; Negative Wheezes
Cardiac: Regular Rhythm and S1/S2
GI: Soft and Nontender
Musculoskeletal: No Edema
Skin: Warm and Dry; Negative Rash
Neuro: AO x 3
Psych: Calm
Data Reviewed
-
Diagnostic Radiology: Report Reviewed by me
Labs: Labs Reviewed by me
[2025-05-26] MEDS: ELIQUIS 5 MG PO ×2 (08:45→20:16)
[2025-05-26] MEDS: COLACE 100 MG PO (08:49)
[2025-05-26] MEDS: CARDIZEM CD 180 MG PO (08:49)
[2025-05-26] MEDS: SENOKOT 17.2 MG PO (08:49)
[2025-05-26] MEDS: DIOVAN 80 MG PO (08:49)
[2025-05-26] MEDS: ROXICODONE 5 MG PO ×2 (08:52→18:24)
[2025-05-26] MEDS: LOPRESSOR 5 MG IV ×2 (10:07→18:45)
--- NOTE | 2025-05-26 10:14 | PTCARENOTE ---
Pt sitting OOB in chair. HR sustaining 120's-130's. HR jumping into 150's-160's. Attempted to get pt back in bed. Pt refusing. PT/OT assisted pt back into bed. Dr. Harmon notified. IV metoprolol ordered and administered. Care ongoing.
--- NOTE | 2025-05-26 11:42 | CM ---
Addendum entered by Ashley Joyce 05/26/25 12:58:
daughter convinced patient to accept SNF. Referrals sent to [facility] and [facility]. awaiting responses.
Original Note:
Patient seen at bedside with daughter present on 2 . Patient continues to verbalize that she wants to go home. Patient expressed understanding of therapy recommendations and stated that she was concerned that her insurance did not pay for her
stay 2 years ago at [facility]. Patient to work with therapy again in early afternoon and is aware of options for [facility] private aides and a place for mom; Celena Krishnamurthy supports following discharge to coordinate further resources. CM will continue to
follow for discharge planning needs.
Plan; home with [facility] vs SNF pending medical treatment plan and family discussions
[2025-05-26] MEDS: LIPITOR 20 MG PO (18:19)
--- NOTE | 2025-05-26 18:38 | PTCARENOTE ---
Pt HR 130's-140's while laying in bed. Pt asymptomatic. Dr. Harmon notified. Iv Lopressor ordered. Care ongoing.
[2025-05-26] MEDS: COLACE PO (20:16)
[2025-05-26] MEDS: SENOKOT PO (20:16)
[2025-05-27] VITALS (8 sets, daily range): BP systolic 104–129; BP diastolic 53–73; PULSE 78–100; O2SAT 94; BMI 25.8
--- NOTE | 2025-05-27 07:37 | W.PN.HOSP.TC ---
Addendum entered and electronically signed by Mary Alice Harmon MD 05/27/25 07:52:
Regarding atrial fibrillation, patient was tachycardic to 120's yesterday (05/26) in setting of pain and post surgery. Prior to surgery her HR was well controlled 70's-80's. She received 2 doses of IV Metoprolol yesterday with improvement in
rates. Given the Diltiazem 180mg QD managed rate prior to surgery, I will continue this dose with acceptance of mildly elevated rates (90's-low 100's this morning without yet receiving her Diltiazem) while patient continues to recover from surgery.
Original Note:
Today's Communication/Plan
-
dispo planning for SNF
Assessment / Plan
Assessment / Plan
Left hip fracture post mechanical fall
- s/p Cemented left hip hemiarthroplasty on 05/24
- Pain control
- PT/OT --> SNF recommended and now patient agreeable
- KILN DOOR BUILDER Eliquis resumed for DVT PPx
- appreciate Ortho
Iatrogenic Volume Overload
Hypoxic Respiratory Insufficiency
-patient on 3-4L overnight with obvious JVP on exam
-s/p Lasix x 1 on 05/25 - now on RA; BP stable
Hyponatremia:
- Mild
- Continue holding home HCTZ
- Will monitor
A-fib:
- Continue rate control with diltiazem 100 mg p.o. daily
- CHADS2-Vasc score = 4; KILN DOOR BUILDER Eliquis resumed
Hypertension:
- Continue home valsartan 80 mg daily
- Holding home HCTZ as it may have been contributing to her mild hyponatremia
- Blood pressure currently well-controlled, will monitor
CAD:
- Currently stable, history of CABG
- Continue statin
- Follows with [facility]ology as outpatient
DVT prophylaxis: Eliquis
CODE STATUS: DNR
51 minutes spent on patient care
Anticipated Discharge: Within 24 hours
Subjective/Interval History
-
Date of Service: May 27, 2025
feeling OK
having BM
pain controlled with oxycodone but doesn't like taking
Objective Data
-
Vital Signs:
Vital Signs
Temp Pulse Resp BP Pulse Ox
98.2 F 85 16 124/72 95
05/27/25 03:20 05/27/25 03:20 05/27/25 03:20 05/27/25 03:20 05/27/25 03:20
I&O
05/26/25 05/27/25 05/28/25
06:59 06:59 06:59
Intake Total 480 / 480 1260 / 1260
Balance 480 / 480 1260 / 1260
Review of Systems
-
History Source: Patient
All other systems: Reviewed and negative
Physical Exam
-
General: No Apparent Distress
HEENT: PERRLA
Respiratory: Clear to Auscultation; Negative Wheezes
Cardiac: Regular Rhythm and S1/S2
GI: Soft and Nontender
Musculoskeletal: No Edema
Skin: Warm and Dry; Negative Rash
Neuro: AO x 3
Psych: Calm
Data Reviewed
-
Diagnostic Radiology: Report Reviewed by me
Labs: Labs Reviewed by me
--- NOTE | 2025-05-27 08:36 | CM ---
[facility]. CM will call to start auth process.
[2025-05-27] MEDS: ROXICODONE 5 MG PO (09:14)
[2025-05-27] MEDS: CARDIZEM CD 180 MG PO ×2 (09:14→20:33)
[2025-05-27] MEDS: SENOKOT 17.2 MG PO (09:14)
[2025-05-27] MEDS: TYLENOL 1000 MG PO ×3 (09:15→22:18)
[2025-05-27] MEDS: COLACE 100 MG PO ×2 (09:15→20:39)
[2025-05-27] MEDS: ELIQUIS 5 MG PO ×2 (09:15→20:34)
--- NOTE | 2025-05-27 09:45 | CM ---
Addendum entered by Ashley Joyce 05/27/25 14:58:
Patient able to go to SNF tomorrow if medically appropriate
Original Note:
Patient auth for [facility] approved via [employer] [id number]. approved for 7 days Please call report to [phone]/fax [phone]. Patient will need ambulance transportation. CM will complete forms. CM will continue to follow for discharge
planning needs.
Plan; SNF
--- NOTE | 2025-05-27 10:13 | PTCARENOTE ---
Pt HR irregular and erratic sustaining 120s-140s, occasionally rising 160s-170s. Blood pressure stable, pt asymptomatic. Dr Harmon notified. Care ongoing.
--- NOTE | 2025-05-27 10:20 | W.PN.UPDATE ---
Update Note
Progress Note Update
Patient's heart rate is now 130's-140's. Cannot discharge her with uncontrolled rates. I have updated DOLLY, RN and updated patient.
HR responded well to IV Metop, will give additional dose now. Will consider addition or oral Metop versus increasing Diltiazem dosing. I have consulted Cardiology. I have put Valsartan on hold to make room for rate controlling medications.
[2025-05-27] MEDS: LOPRESSOR 5 MG IV (10:28)
--- NOTE | 2025-05-27 10:56 | CON.CAR ---
Addendum entered and electronically signed by Brett Mathisa MD 05/27/25 14:03:
I saw and examined the patient independently and performed majority of MDM.
The DOUGH PUNCHER's note was reviewed and I agree with the note with changes/additions below.
Comment: 89 yo female with PMH of A fib, which seems persistent, CAD/CABG is admitted following hip fracture. We are consulted for A fib with RVR. Patient is asymptomatic. Exam with irregular rhythm, no murmurs, no edema. Tele: A fib now rates in
90s. Cr 0.7.
A fib with RVR. Better. Increase diltiazem to 180mg bid. Continue eliquis.
CAD. Stable, no angina.
Original Note:
Consultation
Consultation Request
Date/Time Consultation Requested: 05/27/25 1019
Date/Time Consultation Performed: 05/27/25 1057
Requesting Provider: Dr. Harmon
Performing Provider: Macy RICE for Dr. Mathias
Reason for Consultation: AFIB
Medical History
-
Chief Complaint: Fall with hip fracture
History of Present Illness:
89 y/o female (follows with [facility] aircraft communicator Dr. Jerry Cornell) with PAF on Eliquis, CAD with remote hx CABG, hypertension, and dyslipidemia. She lost her balance and fell and sustained a left hip fracture and is now s/p surgical intervention.
We are consulted since her AFIB rates remain elevated at times. IV metoprolol has been used to assist with rates. She does not feel the afib and looks well at the time of my assessment. Daughter is at bedside.
Past Medical History
Past Medical History: Arrhythmias, CAD, HTN and Hypercholesterolemia
Social History
Tobacco: Non-Smoker
Family History
Family History: Reviewed & Not Pertinent
Allergies / Home Medications
Allergy/AdvReac Type Severity Reaction Status Date / Time
No Known Allergies Allergy Unverified 08/16/16 12:27
�Medication �Instructions �Recorded �Confirmed �Type
calcium carbonate (Calcium 600) 1,200 mg PO DAILY Supplement 11/18/23 05/20/25 History
simvastatin 40 mg tablet (Zocor) 40 mg PO QPM High Cholesterol 11/18/23 05/20/25 History
therapeutic multivitamin 1 tab PO DAILY Supplement 11/18/23 05/20/25 History
apixaban 5 mg tablet (Eliquis) 5 mg PO BID #60 tabs 11/26/23 05/20/25 Rx
diltiazem HCl 180 mg 180 mg PO DAILY #30 caps 11/26/23 05/20/25 Rx
capsule,extended release 24 hr
nitroglycerin 0.4 mg sublingual 0.4 mg sublingual Q5M PRN chest 05/20/25 05/20/25 History
tablet pain
valsartan 80 mg tablet 80 mg PO QPM Blood Pressure 05/20/25 05/20/25 History
acetaminophen 500 mg tablet 1,000 mg (2 x 500 mg) PO TID #30 05/27/25 Rx
(Tylenol Extra Strength) tabs
oxycodone 5 mg tablet 5 mg PO Q4HPRN PRN severe pain #10 05/27/25 Rx
tabs
Review of Systems
-
History Source: Patient
All other systems: Negative unless noted
Musculoskeletal: Other (fall with hip fracture)
Physical Exam
Vital Signs
Temp Pulse Resp BP Pulse Ox
98.7 F 110 20 138/92 95
05/27/25 08:00 05/27/25 08:00 05/27/25 08:00 05/27/25 10:28 05/27/25 08:00
Lab Results
05/26/25 05:37
05/26/25 05:37
Ygf-P-Ouoltthjshw Pept 1570 pg/ml 05/25/25 05:22
Physical Exam
General: Well Developed, Well Nourished and No Apparent Distress
HEENT: Normocephalic and Anicteric
Respiratory: Clear and Non Labored Respirations
Cardiac: Irregular Rhythm
Musculoskeletal: Edema (mild BLE edema )
Skin: Warm and Dry
Neuro: AO x 3
Psych: Calm
Impression / Plan
-
Left hip fracture:
-s/p left hip hemiarthroplasty on 05/24/25
-post-op management per ortho
AFIB:
-when we last saw her in 2023 it was paroxysmal, now seems to be persistent. Asymptomatic.
-Eliquis resumed
-Rates fast at times. Now in 80's-90's at rest s/p IV metoprolol. Will increase diltiazem. Monitor HR and BP with this change.
CAD with hx CABG:
-stable without CP
-on Eliquis and statin
HTN:
-monitor with med adjustments
-valsartan stopped by primary team
Data Reviewed
-
EKG: Tracing Personally Visualized and interpreted (AFIB at 98 BPM)
Radiology: Report Reviewed by me (hip XR 05/20/25: Fracture is identified of the left femoral neck, sub-optimally profiled. Multiple fixation screws extend through the right femoral neck.)
Labs: Labs Reviewed by me
--- NOTE | 2025-05-27 13:34 | W.DCSUMMARY ---
Discharge Summary
Discharge Data
Date of Admission: 05/20/25
Date of Discharge: 05/29/25
-
Pending Results: No
Hospital Course
Discharging Physician : Dr. Mary Alice Harmon
Disposition : SNF
Primary care physician : Dr. Lauryn Mckinney
Principal Discharge diagnosis : Left Hip Fracture status post cemented left hip hemiarthroplasty on 05/24
Hospital Course :
Ms. Tabatha Covarrubias is a 89 yo woman with hx atrial fibrillation on Eliquis, essential HTN, HLD, CAD s/p CABG presents to ER after a fall onto her left hip resulting in left hip pain. Triage vitals significant for hypertension; labs without
leukocytosis. Hip X-Ray with fracture of left femoral neck. Patient was admitted to medicine with Orthopedics consulting and she underwent cemented left hip hemiarthroplasty on 05/24 post Eliquis wash out. Patient's Eliquis was resumed the
following day. She worked with PT and SNF recommended.
Post-op course complicated by iatrogenic volume overload s/p 1 dose IV Lasix with good response (weaned off of oxygen). She also developed RVR, Cardiology was consulted and her Diltiazem dosing is increased to BID. She was also started on
Metoprolol XL 25mg twice a day (can be uptitrated at SNF if necessary).
Patient's Na was low/normal and her HCTZ is stopped. Her Valsartan is stopped to make more room in BP for Diltiazem.
Patient will follow up closely with outpatient providers, she is discharged to SNF.
Time spent on discharge was 40 minutes.
Important imaging findings :
HEAD CT
IMPRESSION:
1. No CT evidence for acute intracranial hemorrhage or transcortical infarct.
2. Mild to moderate white matter leukoaraiosis in the frontal and parietal lobes.
3. Moderate bilateral parietal lobe volume loss.
Hip X-Ray
FINDINGS and IMPRESSION:
Fracture is identified of the left femoral neck, suboptimally profiled.
Multiple fixation screws extend through the right femoral neck.
Procedure findings :
Discharge Plan
-
Patient Disposition: Group Home/SNF
Discharge Diagnosis/Procedures: Left hip fracture status post cemented left hip hemiarthroplasty 05/24
Diet: Regular
Activity: As tolerated
Additional Activity: Posterior hip precautions; weightbearing as tolerated left lower extremity
Driving Restrictions: No driving
Bathing Restrictions: None
Other Services: PT and OT
Referrals:
Lauryn Mckinney MD [Family Provider, Family Practice] - in less than 1 week
Franco Sebastian MD [Active, Orthopedics] - in two to three weeks
Additional Discharge Medication Instructions: STOP Hydrochlorothiazide. Your sodium was mildly low. Your blood pressure was well controlled off of this medication.
STOP Valsartan (we do not want to lower your blood pressure too much given adjustment of medications to help control heart rate).
Because your heart rates went fast post surgery: Your Diltiazem is increased from 180mg daily to twice a day. You are stated on Metoprolol XL 25mg twice a day
STOP Simvastatin; this is replaced with Atorvastatin (because of interactions between Simvastatin and Diltiazem)
Take Tylenol 1G every 8 hours over next 7 days then can take as needed
Take Oxycodone as needed for severe pain.
Prescriptions:
New
acetaminophen [Tylenol Extra Strength] 500 mg Tablet
1,000 mg PO TID Qty: 30 0RF
Rx Instructions:
Take 3x/day over next week then can take as needed
oxycodone 5 mg Tablet
5 mg PO Q4HPRN PRN (Reason: severe pain) Qty: 10 0RF
diltiazem HCl 180 mg Capsule,Extended Release 24hr
180 mg PO BID Qty: 60 0RF
metoprolol succinate 25 mg Tablet Extended Release 24 Hr
25 mg PO BID Qty: 60 0RF
atorvastatin 20 mg Tablet
20 mg PO QPM Qty: 30 0RF
Continued
therapeutic multivitamin Tablet
1 tab PO DAILY
calcium carbonate [Calcium 600] 600 mg calcium (1,500 mg) Tablet
1,200 mg PO DAILY
Eliquis 5 mg Tablet
5 mg PO BID Qty: 60 0RF
nitroglycerin 0.4 mg Tablet, Sublingual
0.4 mg SUBLINGUAL Q5M PRN (Reason: chest pain)
Discontinued
simvastatin [Zocor] 40 mg Tablet
40 mg PO QPM
diltiazem HCl 180 mg Capsule,Extended Release 24hr
180 mg PO DAILY Qty: 30 0RF
hydrochlorothiazide 25 mg tablet
25 mg PO DAILY
valsartan 80 mg Tablet
80 mg PO QPM
Discharge Orders:
Discharge Patient (As Directed); Ordered 05/29/25
Ordered By: Mary Alice Harmon
Discharge Date and Time
Print Language: AZERI
[2025-05-27] MEDS: LIPITOR 20 MG PO (17:07)
[2025-05-27] MEDS: SENOKOT PO (21:54)
[2025-05-28] VITALS (8 sets, daily range): BP systolic 105–135; BP diastolic 67–82; PULSE 71–85; O2SAT 96–97; BMI 25.7
[2025-05-28 07:59] LABS: Blood Urea Nitrogen 17 mg/dl (7-17); Calcium 8.4 mg/dl (8.4-10.2); Carbon Dioxide 30 mmol/L (22-30); Chloride 103 mmol/L (98-107); Estimated Creatinine Clearance 61 ml/min; Glucose 101 mg/dl (70-99); Magnesium 1.8 mg/dl (1.6-2.3); Potassium 4.1 mmol/L (3.5-5.1); Sodium 135 mmol/L (135-145); eGFR > 60.00
--- NOTE | 2025-05-28 08:26 | W.PN.HOSP.TC ---
Today's Communication/Plan
-
If HR's remain controlled throughout the morning then patient is stable for DC to SNF on current regimen
Assessment / Plan
Assessment / Plan
Left hip fracture post mechanical fall
- s/p Cemented left hip hemiarthroplasty on 05/24
- Pain control
- PT/OT --> SNF recommended and now patient agreeable
- TECHNICAL BUYER Eliquis resumed for DVT PPx
- appreciate Ortho
Iatrogenic Volume Overload
Hypoxic Respiratory Insufficiency
-patient on 3-4L overnight with obvious JVP on exam
-s/p Lasix x 1 on 05/25 - now on RA; BP stable
Hyponatremia:
- Mild
- Continue holding home HCTZ
- Will monitor
A-fib with RVR
-patient with RVR post-op; responds well to IV Metoprolol
- Continue rate control with diltiazem 180 mg p.o. daily --> increased to BID for better rate control post-op
- CHADS2-Vasc score = 4; TECHNICAL BUYER Eliquis resumed
Hypertension:
- Home valsartan 80 mg daily held to make room in BP for increased Diltiazem dosing
- Holding home HCTZ as it may have been contributing to her mild hyponatremia
- Blood pressure currently well-controlled, will monitor
CAD:
- Currently stable, history of CABG
- Continue statin
- Follows with [place] cardiology as outpatient
DVT prophylaxis: Eliquis
CODE STATUS: DNR
51 minutes spent on patient care
Anticipated Discharge: Within 24 hours
Subjective/Interval History
-
Date of Service: May 28, 2025
feeling well
wants to leave and go to rehab
no chest discomfort or palpitations
Objective Data
-
Labs:
Laboratory Results
05/28/25
06:47
Sodium 135
Potassium 4.1
Chloride 103
Carbon Dioxide 30
BUN 17
Creatinine 0.6
Glucose 101 H
Calcium 8.4
Vital Signs:
Vital Signs
Temp Pulse Resp BP Pulse Ox
99.0 F 85 18 134/77 97
05/28/25 07:00 05/28/25 07:00 05/28/25 07:00 05/28/25 07:00 05/28/25 07:00
I&O
05/27/25 05/28/25 05/29/25
06:59 06:59 06:59
Intake Total 1260 / 1260 1140 / 1140
Balance 1260 / 1260 1140 / 1140
Review of Systems
-
History Source: Patient
All other systems: Reviewed and negative
Physical Exam
-
General: No Apparent Distress
HEENT: PERRLA
Respiratory: Clear to Auscultation; Negative Wheezes
Cardiac: S1/S2 and Irregular Rhythm
GI: Soft and Nontender
Musculoskeletal: Edema, Left Lower Extrem (chronic per patient )
Skin: Warm and Dry; Negative Rash
Neuro: AO x 3
Psych: Calm
Data Reviewed
-
Diagnostic Radiology: Report Reviewed by me
Labs: Labs Reviewed by me
[2025-05-28] MEDS: TYLENOL 1000 MG PO ×3 (09:32→21:26)
[2025-05-28] MEDS: CARDIZEM CD 180 MG PO ×2 (09:32→20:10)
[2025-05-28] MEDS: ELIQUIS 5 MG PO ×2 (09:33→20:10)
[2025-05-28] MEDS: SENOKOT PO ×2 (10:07→20:06)
[2025-05-28] MEDS: COLACE PO ×2 (10:07→20:06)
--- NOTE | 2025-05-28 11:38 | W.PN.CD ---
Today's Communication / Plan
-
Continue Dilt ER 180 BID
Continue Eliquis 5 bid (Cr 0.6, weight 72 kg)
Add metoprolol ER 50 BID, adjust (more or less, over time based on HR/BP)
For now stay off Valsartan with (as metoprolol adding for HR control), later over time reassess based on BP/HR
Cardiology will sign off. Please call with questions.
She should followup with her cardiolgist Dr Rushing at [facility]
Impression / Plan
-
Left hip fracture:
-s/p left hip hemiarthroplasty on 05/24/25
-post-op management per ortho
AFIB:
-when we last saw her in 2023 it was paroxysmal, now seems to be persistent. Asymptomatic.
-Eliquis resumed
-Rates fast at times. Now in 80's-90's at rest s/p IV metoprolol. Will increase diltiazem. Monitor HR and BP with this change.
-We will add metoprolol to dilt
CAD with hx CABG:
-stable without CP
-on Eliquis and statin
HTN:
-monitor with med adjustments
-valsartan stopped by primary team
Subjective:
No Cp or palps or dyspnea
Physical Exam
Vital Signs/Labs
Vital Signs
Temp Pulse Resp BP Pulse Ox
99.1 F 104 16 127/70 95
05/28/25 11:00 05/28/25 11:00 05/28/25 11:00 05/28/25 11:00 05/28/25 11:00
05/27/25 05/28/25 05/29/25
06:59 06:59 06:59
Actual Weight 72.484 kg 72.167 kg
05/26/25 05:37
05/28/25 06:47
PT 15.7 Sec (11.4-14.6) H 05/23/25 06:52
INR 1.22 05/23/25 06:52
APTT 38.2 Sec (23.4-35.0) H 05/24/25 05:59
Magnesium 1.8 mg/dl (1.6-2.3) 05/28/25 06:47
05/21/25 05/25/25
07:21 05:22
Kuh-Z-Igrmasklmsl Pept 1670 1570
Physical Exam
Constitutional: No acute distress
Cardiovascular: Rhythm/rate is irregular and S1S2 is normal
Respiratory: Respiratory effort normal and Lungs clear to auscul.
GI: Soft and Distention absent
Data Reviewed
-
Date of Service: May 28, 2025
[2025-05-28] MEDS: TOPROL XL 50 MG PO (11:57)
--- NOTE | 2025-05-28 12:36 | PTCARENOTE ---
At about 0930, Patients heart rate in the 150-160's when ambulating to the bathroom. Patient had not received her diltiazem at that time. Returned to 90s sitting. Then again went up to the 150-160s. But sustained in the 120-130's. Patient
asymptomatic. Dr. Del [place] and Dr. Harmon both made aware. Toprol XL ordered and given. HR at this time at rest is in the 70s -80s.
--- NOTE | 2025-05-28 14:52 | CM ---
Patient seen at bedside with daughter present. Patient continues to want to go to SNF at [facility] and patient will need ambulance transportation,CM completed forms and placed on chart. Patient auth for [facility] approved via [facility] [id number].
approved for 7 days, and [facility] aware and willing to accept on weekend. Please call report to [phone]/fax [phone]. IMM given to patient and signed form placed on chart. CM will continue to follow for discharge planning needs.
Plan; SNF
[2025-05-28] MEDS: LIPITOR 20 MG PO (17:44)
[2025-05-28] MEDS: TOPROL XL 25 MG PO (20:11)
[2025-05-29 04:15] VITALS: BP 126/68
[2025-05-29 06:00] VITALS: BMI 24.1
[2025-05-29] MEDS: CARDIZEM CD 180 MG PO (08:32)
[2025-05-29] MEDS: TYLENOL 1000 MG PO ×2 (08:32→17:28)
[2025-05-29] MEDS: TOPROL XL 25 MG PO (08:32)
[2025-05-29] MEDS: ELIQUIS 5 MG PO (08:32)
[2025-05-29] MEDS: COLACE PO (08:37)
[2025-05-29] MEDS: SENOKOT PO (08:37)
--- NOTE | 2025-05-29 08:37 | W.PN.HOSP.TC ---
Addendum entered and electronically signed by Mary Alice Harmon MD 05/29/25 17:22:
given she had looser stools post senna and stool isn't liquid per RN then no need for C. Diff testing
Addendum entered and electronically signed by Mary Alice Harmon MD 05/29/25 17:20:
patietn with a couple of loose stools post senna last night; will give one dose of immodium prior to DC to SNF, hold any laxatives for loose stools
Original Note:
Today's Communication/Plan
-
DC early afternoon
Assessment / Plan
Assessment / Plan
Left hip fracture post mechanical fall
- s/p Cemented left hip hemiarthroplasty on 05/24
- Pain control
- PT/OT --> SNF recommended and now patient agreeable
- MEAT COUNTER WORKER Eliquis resumed for DVT PPx
- appreciate Ortho
Iatrogenic Volume Overload
Hypoxic Respiratory Insufficiency
-patient on 3-4L overnight with obvious JVP on exam
-s/p Lasix x 1 on 05/25 - now on RA; BP stable
Hyponatremia:
- Mild
- Continue holding home HCTZ
- Will monitor
A-fib with RVR
-patient with RVR post-op; responds well to IV Metoprolol
- Continue rate control with diltiazem 180 mg p.o. daily --> increased to BID; remained tachycardic. appreciate Cardiology; will order Metop XL 25mg PO BID (tolerated yesterday and overnight) - HR 80's this morning prior to meds - monitor for 2
hours post morning meds then OK for DC
- CHADS2-Vasc score = 4; MEAT COUNTER WORKER Eliquis resumed
Hypertension:
- Home valsartan 80 mg daily held to make room in BP for increased Diltiazem dosing
- Holding home HCTZ as it may have been contributing to her mild hyponatremia
- Blood pressure currently well-controlled, will monitor
CAD:
- Currently stable, history of CABG
- Continue statin
- Follows with [facility] as outpatient
DVT prophylaxis: Eliquis
CODE STATUS: DNR
51 minutes spent on patient care
Anticipated Discharge: Today
Subjective/Interval History
-
Date of Service: May 29, 2025
feeling well
wants to leave
no palpitations or significant pain
Objective Data
-
Vital Signs:
Vital Signs
Temp Pulse Resp BP Pulse Ox
97.7 F 78 16 119/77 96
05/29/25 04:15 05/29/25 08:32 05/29/25 04:15 05/29/25 08:32 05/29/25 04:15
I&O
05/28/25 05/29/25 05/30/25
06:59 06:59 05:59
Intake Total 1140 / 1140 600 / 600
Balance 1140 / 1140 600 / 600
Review of Systems
-
History Source: Patient
All other systems: Reviewed and negative
Physical Exam
-
General: No Apparent Distress
HEENT: PERRLA
Respiratory: Clear to Auscultation; Negative Wheezes
Cardiac: S1/S2 and Irregular Rhythm
GI: Soft and Nontender
Musculoskeletal: Edema, Left Lower Extrem (chronic per patient )
Skin: Warm and Dry; Negative Rash
Neuro: AO x 3
Psych: Calm
Data Reviewed
-
Diagnostic Radiology: Report Reviewed by me
Labs: Labs Reviewed by me
--- NOTE | 2025-05-29 08:44 | W.DS.TRANS ---
DC Summary - Ground Intelligence Officer
-
Discharge Instructions:
Sleep Apnea Risk Intermediate
Discharge Diagnosis/Procedures Left hip fracture status post cemented left hip
hemiarthroplasty 05/24
Diet Regular
Activity As tolerated
Additional Activity Posterior hip precautions; weightbearing as
tolerated left lower extremity
Driving Restrictions No driving
Bathing Restrictions None
Other Services PT,OT
Instructions:
Stand-Alone Forms:
Changes to Home Medications: Yes
Discharge Medications:
DC Medications w/original date entered in [facility]
calcium carbonate (Calcium 600) 1,200 mg PO DAILY Supplement 11/18/23
therapeutic multivitamin 1 tab PO DAILY Supplement 11/18/23
apixaban 5 mg tablet (Eliquis) 5 mg PO BID #60 tabs 11/26/23
nitroglycerin 0.4 mg sublingual tablet 0.4 mg sublingual Q5M PRN chest pain 05/20/25
acetaminophen 500 mg tablet (Tylenol Extra Strength) 1,000 mg (2 x 500 mg) PO TID #30 tabs 05/27/25
oxycodone 5 mg tablet 5 mg PO Q4HPRN PRN severe pain #10 tabs 05/27/25
atorvastatin 20 mg tablet 20 mg PO QPM #30 tabs 05/29/25
diltiazem HCl 180 mg capsule,extended release 24 hr 180 mg PO BID #60 caps 05/29/25
metoprolol succinate 25 mg tablet,extended release 24 hr 25 mg PO BID #60 tabs 05/29/25
Home Medication Changes
STOP Hydrochlorothiazide. Your sodium was mildly low. Your blood pressure was well controlled off of this medication.
STOP Valsartan (we do not want to lower your blood pressure too much given adjustment of medications to help control heart rate).
Because your heart rates went fast post surgery: Your Diltiazem is increased from 180mg daily to twice a day. You are stated on Metoprolol XL 25mg twice a day
STOP Simvastatin; this is replaced with Atorvastatin (because of interactions between Simvastatin and Diltiazem)
Take Tylenol 1G every 8 hours over next 7 days then can take as needed
Take Oxycodone as needed for severe pain.
Pending Results: No
[2025-05-29 08:51] VITALS: BP 119/77
--- NOTE | 2025-05-29 11:17 | CM ---
F/U: Patient is still ready and [facility] aware of the transport time for 14:30. PLAN: SNF to [facility].
[2025-05-29 12:01] VITALS: BP 112/62
[2025-05-29 15:55] VITALS: BP 114/63
[2025-05-29] MEDS: IMODIUM 2 MG PO (17:28)
[2025-05-29] MEDS: LIPITOR 20 MG PO (17:28)
== END 2025-05-29 17:47 | DRG 522 ==
LOC: 2 SOUTH 16:57
PROVIDERS: Internal Medicine; Physician Assistant; ADMITTING PHYSICIAN Student in an Organized Health Care Education/Training Program; CONSULT PHYSICIAN Internal Medicine; CONSULT PHYSICIAN Orthopaedic Surgery; EMERGENCY PHYSICIAN Emergency Medicine; FAMILY PHYSICIAN Internal Medicine
PROC: 0SRS0J9 Replacement of Left Hip Joint, Femoral Surface with Synthetic Substitute, Cemented, Open Approach (ICD-10-PCS; 2025-05-24)
DX: S72.002A Fracture of unspecified part of neck of left femur, initial encounter for closed fracture (principal); E87.1 Hypo-osmolality and hyponatremia; I10 Essential (primary) hypertension; I25.10 Atherosclerotic heart disease of native coronary artery without angina pectoris; Z95.1 Presence of aortocoronary bypass graft; I48.0 Paroxysmal atrial fibrillation; E78.00 Pure hypercholesterolemia, unspecified; W01.0XXA Fall on same level from slipping, tripping and stumbling without subsequent striking against object, initial encounter; E87.70 Fluid overload, unspecified; Z79.01 Long term (current) use of anticoagulants; Z66 Do not resuscitate; E03.9 Hypothyroidism, unspecified; Z79.899 Other long term (current) drug therapy
CPT/HCPCS: 70450; 71045; 73502; 80048; 80053; 83735; 83880; 85025; 85027; 85610; 85730; 86850; 86900; 86901; 87324; 87449; 93005; 96374; 96375; 96376; 97116; 97163; 97167; 97530; 97535; 99285; C1713; C1776